=== PATIENT | male | born 1955 | race Caucasian/White ===

== ENCOUNTER 2021-11-22 23:43 | Inpatient (IN) | payer OTHER, SELFPAY ==
--- NOTE | ~2021-11-22 | US_ITS ---
EXAMINATION: US venous doppler [facility] DATE: 12/02/2021 09:58 INDICATION: Fever. Assess for DVT. TECHNIQUE: Grayscale images without and with compression and Doppler images of the bilateral upper ex tremity veins were obtained. COMPARISON: None. FINDINGS: The right internal jugular vein, subclavian vein, axillary vein, brachial vein, basilic vein, cephali c vein, radial vein, and ulnar vein are patent. A peripheral IV is present. Portion of the right ceph alic vein at the antecubital fossa. Noncompressible thrombosis in the left brachial, basilic and cephalic veins. There is a left upper ex tremity peripherally inserted central venous catheter (PICC) which can be seen in the left subclavian and basilic veins. The left internal jugular vein, subclavian vein, axillary vein, radial vein, and ulnar vein are patent. IMPRESSION: 1. Thrombosis in the left basilic, cephalic and brachial veins. No evident venous anastomosis in the right upper limb. Reviewed, dictated and finalized at location A. IMPRESSION: 1. Thrombosis in the left basilic, cephalic and brachial veins. No evident veno us anastomosis in the right upper limb.
--- NOTE | ~2021-11-22 | XR_ITS ---
EXAMINATION: XR chest 1V portable DATE: 11/30/2021 05:29 INDICATION: Respiratory failure TECHNIQUE: frontal view of the chest was obtained. COMPARISON: Chest radiograph dated 11/29/21 FINDINGS: Endotracheal tube tip 2.7 cm above the sotero. Nasogastric tube tip in the stomach. Left upper extrem ity peripherally inserted central venous catheter (PICC) tip at the mid superior vena cava. Lung volumes appear decreased which may be due to more lordotic positioning. Persistent hazy and stre aky opacities at the bilateral lung bases. Mild blunting at the costophrenic angles cyst with small b ilateral pleural effusions. No pneumothorax. Cardiomegaly. Small hiatal hernia. IMPRESSION: 1. Persistent opacities at the bilateral lung bases suggesting small bilateral layering pleural effus ions with associated basilar atelectasis or pneumonia. 2. Cardiomegaly. 3. Small hiatal hernia. Reviewed, dictated and finalized at location A. IMPRESSION: 1. Persistent opacities at the bilateral lung bases suggesting small bilateral layering pleural effusions with associated basilar atelectasis or pneumonia. 2. Cardiomegaly. 3. Small hiatal hernia.
--- NOTE | ~2021-11-22 | XR_ITS ---
XR chest 1V portable DATE: 12/03/2021 06:39 INDICATION: Respiratory failure TECHNIQUE: Portable AP chest on 12/03/2021 at 0531 hours COMPARISON: 12/02/2021 portable AP chest at 0524 hours FINDINGS: ET tube in satisfactory position 5 x 5 cm above sotero. NG tube in stomach. Left upper extr emity PIC catheter tip overlies superior vena cava. Heart size appears within normal range. Minimal bibasilar atelectasis is suggested. No pneumothorax. IMPRESSION: No significant change since 12/02/2021 Reviewed, dictated and finalized at location A.
--- NOTE | ~2021-11-22 | XR_ITS ---
XR chest 1V portable DATE: 12/05/2021 10:54 INDICATION: Hypoxia TECHNIQUE: Portable AP chest on 12/2021 at 1042 hours COMPARISON: 12/2021 portable AP chest at 0502 hours FINDINGS: Limited examination; lung bases are partially excluded. Bilateral hyperinflation consistent with COPD. Bibasilar patchy infiltrate and/atelectasis. No pneumothorax is evident. ET tube in satisfactory position. Nasogastric tube is identified. Left upper extremity PIC catheter extends in cephalad direction into the right brachiocephalic vein. Persistent bilateral hyperinflation and patchy bilateral lower lung infiltrates and/atelectasis IMPRESSION: Reviewed, dictated and finalized at location A. IMPRESSION:
--- NOTE | ~2021-11-22 | XR_ITS ---
EXAMINATION: XR abdomen NG/feed tube insert DATE: 11/23/2021 06:20 INDICATION: Orogastric tube placement. TECHNIQUE: An upright view of the abdomen was obtained. COMPARISON: Chest CT 11/23/2021 FINDINGS: The lower abdomen is excluded. The nasogastric tube tip is in the stomach. IMPRESSION: 1. Nasogastric tube tip in the stomach. Reviewed, dictated and finalized at location A.
--- NOTE | ~2021-11-22 | XR_ITS ---
EXAMINATION: XR chest 1V portable DATE: 11/23/2021 05:50 INDICATION: Respiratory failure. TECHNIQUE: A single frontal view of the chest was obtained. COMPARISON: Chest CT 11/23/2021 FINDINGS: There is a diffuse interstitial pattern, consistent with mild pulmonary edema. There are hans cencies in the upper lungs, consistent with emphysema. No pleural effusion or pneumothorax. Cardiomeg kesha is noted. The endotracheal tube tip is 4.4 cm above the sotero. IMPRESSION: 1. Mild pulmonary edema. 2. Emphysema. 3. Cardiomegaly. Reviewed, dictated and finalized at location A.
--- NOTE | ~2021-11-22 | CT_ITS ---
EXAMINATION: CT chest abdomen pelvis wo con DATE: 12/01/2021 11:11 INDICATION: Fever, leukocytosis. Shortness of breath. Respiratory failure. Urinary tract infection. TECHNIQUE: Computed tomography (CT) of the chest, abdomen, and pelvis was performed without intraveno us contrast. Automated exposure control and iterative reconstruction technique were employed. Exam do se: 1957.68 mGy-cm total exam DLP. COMPARISON: 12/01/2021 portable AP chest 11/23/2021 CT pulmonary scan FINDINGS: CHEST CT: Evaluation of the lungs is quite limited due to prominent respiratory motion. Left lower lobe pulmonary calcified granuloma. Bilateral lower lobe dependent atelectasis, right greater than left. Moderate right and mild left ple ural effusions. Mild cardiomegaly. Coronary artery calcification. No thoracic aortic aneurysm. No hilar or mediastina l mass lesion or lymphadenopathy. ET tube in satisfactory position. Nasogastric tube in stomach. ABDOMEN/PELVIS CT: There are numerous stones in the dependent aspect of the gallbladder. No gallbladder wall thickening or pericholecystic fluid or fat stranding. No bile duct or pancreatic duct dilatation. No hepatic, splenic or pancreatic space-occupying mass lesion is detected. Borderline splenomegaly. Normal morphology of the adrenal glands. Approximately 7.2 x 8 mm lower pole right renal calculus with attenuation of 1129 Hounsfield units. 1 to several very small nonobstructing left renal calculi are not excluded. There is bilateral perinephric stranding. No ureteral calculus or hydroureteronephrosis of either kid ana. There is a Gray catheter within the urinary bladder which is evacuated. Status post hysterectom y. There is atherosclerotic calcification but normal caliber of the abdominal aorta and iliac arteries. No intraperitoneal or retroperitoneal or pelvic mass lesion or adenopathy or ascites is noted. Small bilateral fat-containing inguinal hernias. There is a prominent amount of fecal material within the colon. No bowel obstruction, bowel wall thic kening, pneumatosis or intraperitoneal free air is detected. Medially directed cecum, consistent with retained cecal mesentery. Normal appendix. Small fat-containing umbilical hernia. Diffuse osteopenia. Prominent degenerative disc disease in the lower cervical spine. There is degener ative change and scoliosis of the thoracic spine. No suspicious osteolytic or osteoblastic lesions ar e noted, with the exception of prominent avascular necrosis of the right femoral head, with flattenin g and deformity of the head and secondary osteoarthritis at the right hip joint. 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 Reviewed, dictated and finalized at location B. IMPRESSION: Moderate right and mild left pleural effusions Bilateral lower lobe dependent atelectasis Mild cardiomegaly ET and NG tubes in satisfactory position Cholelithiasis Borderline splenomegaly 8 mm lower pole right renal calculus Bilateral perinephric stranding, nonspecific Retained cecal mesentery Normal appendix Status post hysterectomy Avascular necrosis of right femoral head with secondary right hip osteoarthriti s
--- NOTE | ~2021-11-22 | CT_ITS ---
EXAMINATION: CTA chest PE protocol DATE: 11/23/2021 01:39 INDICATION: Hypoxia. TECHNIQUE: Computed tomography angiography (CTA) of the chest was performed with 100 mL Omnipaque-350 intravenous contrast timed to evaluate the pulmonary arteries. Coronal maximum intensity projection 3D-reconstructions were created by the technologist. Automated exposure control and iterative reconst ruction technique were employed. The dose-length product was 1166.98 mGy-cm. COMPARISON: None. FINDINGS: There is mild emphysema. There is diffuse septal thickening in the lungs, consistent with m ild pulmonary edema. There are small pleural effusions, right worse than left. There is mild dependen t atelectasis bilaterally. Cardiomegaly is noted. There are coronary artery calcifications. No perica rdial effusion. The central pulmonary arteries are enlarged, consistent with pulmonary arterial hyper tension. There is no pulmonary embolus. The endotracheal tube tip is in the trachea. There is a small sliding hiatal hernia. The liver demonstrates a nodular surface contour, consistent with cirrhosis. There are gallstones in the gallbladder, which is normal in size. There is severe cervical and thorac ic spondylosis. There is mild chronic anterior wedging of multiple vertebral bodies. IMPRESSION: 1. No pulmonary embolus. Sensitivity is mildly decreased by motion artifact. 2. Mild pulmonary edema. 3. Small pleural effusions. 4. Mild emphysema. 5. Cardiomegaly. 6. Cirrhosis of the liver. Reviewed, dictated and finalized at location A.
--- NOTE | ~2021-11-22 | XR_ITS ---
XR chest 1V portable DATE: 12/05/2021 05:49 INDICATION: Hypoxia. Elevated d-dimer. TECHNIQUE: Portable AP chest on 12/2021 at 0502 hours COMPARISON: 12/21/2021 portable AP chest at 0510 hours FINDINGS: ET and NG tubes in satisfactory position. Left upper extremity PIC catheter tip overlies tong perior vena cava. Cardiomegaly. Persistent bilateral lower lung infiltrate and/atelectasis, left greater than right, relatively stabl e since 12/21/2021. IMPRESSION: Bibasilar infiltrate and/or atelectasis, left greater than right. No significant change s everardo 12/04/2021 Reviewed, dictated and finalized at location A. IMPRESSION: Bibasilar infiltrate and/or atelectasis, left greater than right. N o significant change since 12/04/2021
--- NOTE | ~2021-11-22 | XR_ITS ---
EXAMINATION: XR chest 1V portable DATE: 11/25/2021 03:52 INDICATION: Respiratory failure. TECHNIQUE: A single frontal view of the chest was obtained on 2 radiographs. COMPARISON: Chest single view 11/24/2021, chest CT 11/23/2021 FINDINGS: There are lucencies and interstitial opacities in the lungs. There are airspace opacities i n all right lung zones with a peripheral and lower lung predominance. There are airspace opacities at left lung base. There is a small right pleural effusion. No pneumothorax. Cardiomegaly is noted. The endotracheal tube tip is 4.6 cm above the sotero. The nasogastric tube tip is in the stomach. A left upper extremity peripherally inserted central venous catheter (PICC) is seen with tip in the superio r vena cava. IMPRESSION: 1. Stable diffuse lung disease, likely a combination of mild pulmonary edema, emphysema, and lower hans ng predominant atelectasis/scarring versus pneumonia. 2. Stable small right pleural effusion. 3. Cardiomegaly. Reviewed, dictated and finalized at location A. IMPRESSION: 1. Stable diffuse lung disease, likely a combination of mild pulmonary edema, e mphysema, and lower lung predominant atelectasis/scarring versus pneumonia. 2. Stable small right pleural effusion. 3. Cardiomegaly.
--- NOTE | ~2021-11-22 | CT_ITS ---
EXAMINATION: CT brain wo con DATE: 11/30/2021 21:31 INDICATION: fevers . TECHNIQUE: Computed tomography (CT) of the head was performed without intravenous contrast. The mA wa s adjusted according to patient size. Iterative reconstruction technique was employed. The dose-lengt h product was 681.00 mGy-cm. Significant motion artifact was not recognized at the time of the initia l scan. Technologist attempted to call down for rescan however no additional sedation is being given and there would apparently be considerable time delay prior to transport. As such the exam was read a s is. COMPARISON: None FINDINGS: Severe motion artifact completely obscures portions of the aerated spaces, base of the skull, most of the cerebellum, and portions of the venous sinuses. No acute intracranial hemorrhage or extra-axial fluid collection. No hydrocephalus, mass, or herniation. No acute ischemic infarct. Unremarkable dural venous sinus attenuation. No acute osseous abnormality. The aerated spaces are clear. Incompletely visualized nasogastric tube. Atherosclerotic intracranial calcifications. IMPRESSION: Severely limited examination as described above. Within those constraints, no acute intracranial proc ess detected. Reviewed, dictated and finalized at location K. IMPRESSION: Severely limited examination as described above. Within those constraints, no a cute intracranial process detected.
--- NOTE | ~2021-11-22 | XR_ITS ---
EXAMINATION: XR chest 1V portable INDICATION: Respiratory failure TECHNIQUE: Portable AP chest at 0841 hours COMPARISON: 11/26/2021 FINDINGS: The endotracheal tube ends approximately 3.1 cm above the sotero. The nasogastric tube is f ollowed as far as the stomach. Its tip is beyond the inferior margin of the radiograph. Cardiomegaly is noted. Diffuse interstitial and airspace opacities persist without significant change. There are s mall pleural effusions. There is no pneumothorax. IMPRESSION: 1. Stable diffuse lung disease, consistent with pneumonia and/or pulmonary edema. A two cardiomegaly. 3. Small pleural effusions. Reviewed, dictated and finalized at location A. IMPRESSION: 1. Stable diffuse lung disease, consistent with pneumonia and/or pulmonary tom a. A two cardiomegaly. 3. Small pleural effusions.
--- NOTE | ~2021-11-22 | XR_ITS ---
EXAMINATION: XR chest 1V portable DATE: 11/24/2021 05:58 INDICATION: Respiratory distress. TECHNIQUE: A single frontal view of the chest was obtained. COMPARISON: Chest single view 11/23/2021, chest CT 11/23/2021 FINDINGS: There is a diffuse interstitial pattern in the lungs, consistent with pulmonary edema. Ther e are small pleural effusions. No pneumothorax. Cardiomegaly is noted. The endotracheal tube tip is 1 .6 cm above the sotero. The nasogastric tube tip is in the stomach. A left upper extremity peripheral ly inserted central venous catheter (PICC) is seen with tip at the superior cavoatrial junction. IMPRESSION: 1. Mild pulmonary edema. 2. Stable small pleural effusions. 3. Cardiomegaly. Reviewed, dictated and finalized at location A.
--- NOTE | ~2021-11-22 | XR_ITS ---
EXAMINATION: XR chest 1V portable DATE: 12/01/2021 06:03 INDICATION: Respiratory failure TECHNIQUE: frontal view of the chest was obtained. COMPARISON: Chest radiograph dated 11/30/2021 FINDINGS: Endotracheal tube tip 5.2 cm above the sotero. Nasogastric tube extends below the left hemidiaphragm with distal tip collimated off the study. Left upper extremity peripherally inserted central venous catheter (PICC) tip at the superior vena cava. Interval improvement in pulmonary vascular congestion and previous increased interstitial pattern lik jamal representing pulmonary edema. Mild hazy opacity at the right lung base with blunting of the cardi ophrenic angles consistent with decreasing small right and minimal left pleural effusions. No pneumot horax. Cardiomegaly. Small hiatal hernia. IMPRESSION: 1. Improving, minimal basilar pulmonary edema and decreasing small right and tiny left pleural effusi ons. 2. Cardiomegaly. 3. Small hiatal hernia. Reviewed, dictated and finalized at location A. IMPRESSION: 1. Improving, minimal basilar pulmonary edema and decreasing small right and ti ny left pleural effusions. 2. Cardiomegaly. 3. Small hiatal hernia.
--- NOTE | ~2021-11-22 | XR_ITS ---
XR chest 1V portable DATE: 12/02/2021 05:53 INDICATION: Respiratory failure TECHNIQUE: Portable upright AP chest on 12/02/2021 at 0527 hours COMPARISON: 12/01/2021 CT chest abdomen pelvis 12/01/2021 portable AP chest FINDINGS: ET tube tip in satisfactory position 4.3 cm above sotero. NG tube is noted in stomach. Left upper extremity PIC catheter tip overlies the lower aspect of the inferior vena cava. Cardiomegaly. There are minimal basilar infiltrates and/atelectasis and small bilateral pleural effus ions bilateral hyperinflation.. No pneumothorax. IMPRESSION: Minimal bibasilar infiltrate and/atelectasis and small bilateral pleural effusions; littl e interval change since 12/01/2021 Bilateral hyperinflation Reviewed, dictated and finalized at location A. IMPRESSION: Minimal bibasilar infiltrate and/atelectasis and small bilateral pl eural effusions; little interval change since 12/01/2021 Bilateral hyperinflation
--- NOTE | ~2021-11-22 | XR_ITS ---
EXAMINATION: XR chest PICC line DATE: 11/23/2021 09:49 INDICATION: Central line placement. TECHNIQUE: A single frontal view of the chest was obtained. COMPARISON: Chest single view at 5:22 AM FINDINGS: There is a diffuse interstitial pattern, consistent with mild pulmonary edema. No pleural e ffusion or pneumothorax. Cardiomegaly is noted. The endotracheal tube tip is 4.3 cm above the sotero. A left upper extremity peripherally inserted central venous catheter (PICC) is seen with tip in the superior vena cava. The nasogastric tube tip is in the stomach. IMPRESSION: 1. PICC tip in superior vena cava. 2. Mild pulmonary edema. 3. Cardiomegaly. Reviewed, dictated and finalized at location A.
--- NOTE | ~2021-11-22 | XR_ITS ---
XR abdomen obstructive series DATE: 12/05/2021 08:42 INDICATION: Abdominal distention TECHNIQUE: Portable supine and upright AP views COMPARISON: 12/04/2021 obstructive series FINDINGS: Approximately 4-5 mm lower pole right renal calcified calculus. No evidence of bowel obstruction or intraperitoneal free air. Orogastric tube is in the body of the stomach. Flattening and deformity and some sclerosis of the right femoral head consistent with avascular necro sis. IMPRESSION: Orogastric tube in stomach No evidence of bowel obstruction Right nephrolithiasis Avascular necrosis of right femoral head Reviewed, dictated and finalized at Location A. Reviewed, dictated and finalized at location A.
--- NOTE | ~2021-11-22 | XR_ITS ---
EXAMINATION: XR chest 1V portable DATE: 11/24/2021 12:05 INDICATION: Respiratory failure TECHNIQUE: frontal view of the chest was obtained. COMPARISON: Chest radiograph dated 11/24/2021 at 5:09 AM FINDINGS: Endotracheal tube tip 1.9 cm above the sotero. Nasogastric tube extends below the left hemidiaphragm with distal tip collimated off the study. Left upper extremity peripherally inserted central venous catheter (PICC) tip at the caudal superior vena cava. Gradient of lower lung predominant hazy airspace opacities throughout the right lung and in the left lower lung zone likely representing bilateral posterior layering pleural effusions, small on the left and small to moderate on the right and with associated basilar atelectasis versus less likely pneumo adina. No pneumothorax. Mild cardiomegaly. IMPRESSION: 1. Increasing small left and [id number] right pleural effusions with associated basilar atelec tasis versus pneumonia. 2. Cardiomegaly. Reviewed, dictated and finalized at location B. IMPRESSION: 1. Increasing small left and agryp-[id number] right pleural effusions with ass ociated basilar atelectasis versus pneumonia. 2. Cardiomegaly.
--- NOTE | ~2021-11-22 | XR_ITS ---
EXAMINATION: XR chest 1V portable INDICATION: Respiratory failure TECHNIQUE: Portable AP chest at 0505 hours COMPARISON: 11/25/2021 FINDINGS: The endotracheal tube ends approximately 5.3 cm above the sotero. The nasogastric tube is f ollowed as far as the stomach. Its tip is beyond the inferior margin of the radiograph. There are dif fuse interstitial and airspace opacities of the lungs with slight improvement on the right. A small r ight pleural effusion is present and decreased in size. No pneumothorax is identified. Cardiomegaly i s noted. A left upper showed a PICC ends with its tip in the superior vena cava. IMPRESSION: 1. Diffuse lung disease with interval improvement, consistent with pneumonia and/or pulmonary edema. 2. Cardiomegaly. 3. Small right pleural effusion, decreased. Reviewed, dictated and finalized at location A. IMPRESSION: 1. Diffuse lung disease with interval improvement, consistent with pneumonia an d/or pulmonary edema. 2. Cardiomegaly. 3. Small right pleural effusion, decreased.
--- NOTE | ~2021-11-22 | XR_ITS ---
XR abdomen obstructive series DATE: 12/04/2021 09:26 INDICATION: Fever TECHNIQUE: Portable supine and upright AP views COMPARISON: 12/01/2021 CT chest abdomen pelvis FINDINGS: Orogastric tube in upper body of stomach. Nonspecific bowel gas pattern without apparent obstruction. No intraperitoneal free air is evident. Right renal calcified calculus. Bibasilar infiltrate or atelectasis, suspected small pleural effusions. Avascular necrosis of the right femoral head. IMPRESSION: Nonspecific abdomen Orogastric tube in stomach Reviewed, dictated and finalized at Location A. Reviewed, dictated and finalized at location A.
--- NOTE | ~2021-11-22 | XR_ITS ---
EXAMINATION: XR chest 1V portable DATE: 11/29/2021 06:07 INDICATION: Respiratory failure TECHNIQUE: frontal view of the chest was obtained. COMPARISON: Chest radiograph dated 11/28/2021 FINDINGS: Endotracheal tube tip 5.5 cm above the sotero. Nasogastric tube with proximal side-port near the leve l of the gastroesophageal junction with distal tip collimated off the study likely in the body of the stomach. Left upper extremity peripherally inserted central venous catheter (PICC) tip at the mid s uperior vena cava. Interval decrease in predominantly hazy opacities at the bilateral lung bases with some blunting at t he costophrenic and cardiophrenic angles suggesting small bilateral pleural effusions. Decreasing mil d reticular opacities at the periphery of the right mid to lower and left lower lung zones which coul d represent pulmonary edema, atelectasis or pneumonia. No pneumothorax. Mild cardiomegaly. Moderate t horacic spondylosis. IMPRESSION: 1. Decreasing peripheral reticular opacities at the right mid to lower and left lower lung zones whic h could represent improving mild pulmonary edema, atelectasis or less likely pneumonia. 2. Decreasing small bilateral pleural effusions. 3. Cardiomegaly. Reviewed, dictated and finalized at location A. IMPRESSION: 1. Decreasing peripheral reticular opacities at the right mid to lower and left lower lung zones which could represent improving mild pulmonary edema, atelect asis or less likely pneumonia. 2. Decreasing small bilateral pleural effusions. 3. Cardiomegaly.
--- NOTE | ~2021-11-22 | XR_ITS ---
XR chest ET placement DATE: 12/05/2021 11:16 INDICATION: Intubation TECHNIQUE: Portable upright AP view on 12/2021 at 1111 hours COMPARISON: 12/2021 portable AP chest FINDINGS: ET tube tip is at the proximal aspect of the right mainstem bronchus and needs to be withdr awn approximately 4 to 5 cm. Bilateral hyperinflation. Patchy infiltrate or atelectasis Primarily the lower lung zones. No pleural effusion or pneumothorax is evident. Left upper extremity PIC catheter tip in right brachiocephalic vein. IMPRESSION: ET tube tip at proximal right mainstem right; 4 to 5 cm proximal withdrawal is recommende d Reviewed, dictated and finalized at Location A. Reviewed, dictated and finalized at location A. IMPRESSION: ET tube tip at proximal right mainstem right; 4 to 5 cm proximal wi thdrawal is recommended
--- NOTE | ~2021-11-22 | XR_ITS ---
XR chest 1V portable DATE: 12/04/2021 05:49 INDICATION: Respiratory failure. Mechanical ventilation. TECHNIQUE: Portable AP projection on 12/04/2021 at 0510 hours COMPARISON: 12/03/2021 portable AP chest at 0531 hours FINDINGS: ET tube approximately 3.7 cm above sotero in satisfactory position. NG tube in stomach. Lef t upper extremity PIC catheter tip overlies superior vena cava. Persistent patchy bibasilar infiltrate and/or atelectasis, mildly increased since 12/04/2021. There is minimal if any pleural effusion. No pneumothorax. IMPRESSION: Persistent patchy bibasilar infiltrate and/or atelectasis, mildly increased since 2 Reviewed, dictated and finalized at location A. IMPRESSION: Persistent patchy bibasilar infiltrate and/or atelectasis, mildly i ncreased since 12/04/2021
--- NOTE | ~2021-11-22 | XR_ITS ---
EXAMINATION: XR chest ET placement DATE: 11/23/2021 00:17 INDICATION: Intubation. TECHNIQUE: A single frontal view of the chest was obtained. COMPARISON: Chest CT 11/23/2021 FINDINGS: There are lucencies in the lungs, consistent with emphysema. There is a diffuse interstitia l pattern, consistent with mild pulmonary edema. There are small pleural effusions. Cardiomegaly is n oted. The endotracheal tube tip is 5.4 cm above the sotero. IMPRESSION: 1. Mild pulmonary edema. 2. Emphysema. 3. Small pleural effusions. 4. Cardiomegaly. Reviewed, dictated and finalized at location A.
--- NOTE | ~2021-11-22 | XR_ITS ---
XR chest 1V portable DATE: 12/05/2021 12:02 INDICATION: ET tube repositioning TECHNIQUE: Portable AP chest on 12/05/2021 at 1157 hours COMPARISON: 12/2021 portable AP chest at 1111 hours FINDINGS: ET tube repositioned 3 cm above sotero, in satisfactory position. Persistent bilateral lower lung infiltrate and/atelectasis, left greater than right. NG tube in stomach. Left upper stomach the catheter tip overlying right brachiocephalic vein. IMPRESSION: ET tube repositioned into satisfactory location 3 cm above sotero NG tube in stomach Left upper extremity PIC catheter tip overlies right brachiocephalic vein Bilateral lower lung infiltrate and/atelectasis, left greater than right Reviewed, dictated and finalized at location A.
[2021-11-22 23:40] VITALS: BP 140/78; PULSE 110; RESP 23; TEMP 36.3; O2SAT 100
--- NOTE | 2021-11-22 23:49 | ED.GENADULT ---
HPI - General Adult General Chief complaint: Shortness of Breath/Dyspnea Stated complaint: SOB, intubated Time Seen by Provider: 11/22/21 23:44 History of Present Illness HPI narrative: 66-year-old male presented to the emergency department in respiratory distress. EMS was called to the residence for report of worsening shortness of breath. Patient's pulse ox was 60% on room air. When placed on oxygen patient began to become more somnolent and ultimately needed to be intubated by EMS Patient arrived to the emergency department intubated and saturating well. 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 Attempted to contact and she is currently hospitalized at another hospital for a knee replacement and reportedly has some developmental delay. Patient's only son also has developmental delay. Related Data Home Medications Medication Instructions Recorded Confirmed Unable to Obtain Home Medications 11/23/21 11/23/21 Allergies Allergy/AdvReac Type Severity Reaction Status Date / Time Unable to Assess Allergy Verified 11/23/21 04:31 Review of Systems Review of Systems: ROS unobtainable: Yes unobtainable due to medical condition [facility] Past Medical History Medical History (Updated 11/23/21 @ 04:17 by Sayra Rockwell APRN) Diabetes mellitus Surgical History Surgical History (Updated 11/23/21 @ 04:15 by Sayra Rockwell APRN) Status post bilateral above knee amputation Social History Social History (System 07/12/21 @ 09:18 by Frederick Figueroa) Last use: Unable to assess: patient intubated Spiritual care concerns: No Exam Narrative: APPEARANCE: Ill-appearing and intubated HEAD: normocephalic, atraumatic. EYES: Pupils pinpoint on arrival NOSE: Normal no drainage EARS:TMS clear with good light reflex. THROAT: Patient intubated NECK: Supple. No adenopathy, no masses. RESPIRATORY: Ventilated breath sounds CARDIOVASCULAR: Regular rate and rhythm without murmurs rubs or gallops. ABDOMINAL: Soft, nontender, nondistended, normal bowel sounds MUSCULOSKELETAL: Moves upper extremities, bilateral qtfbp-xry-waxi amputations. NEURO: Does move limbs spontaneously SKIN: Warm, dry. Normal Color Course Course Emergency Course: Patient was intubated in the field. Chest x-ray showed adequate tube placement. UA was concerning for urinary tract infection. Patient was started on Rocephin. Patient does have an elevated troponin. Patient also has an elevated BNP. Patient was started on Lasix in response to the BMP. Patient's repeat troponin was further elevated. Patient was also started on Lovenox and cardiology was consulted for possible NSTEMI. EKG does show it is without evidence of acute STEMI. CTA showed no evidence of pulmonary embolism but did show some interstitial edema and pleural effusions Case was discussed with the last sorter and case was also discussed with the hospitalist Vital Signs Vital signs: Vital Signs Temperature 97.4 F L 11/22/21 23:40 Pulse Rate 110 H 11/22/21 23:40 Respiratory Rate 23 H 11/22/21 23:40 Blood Pressure 140/78 11/22/21 23:40 Pulse Oximetry 100 11/22/21 23:40 Oxygen Delivery Mechanical Ventilation 11/22/21 23:40 Temperature 97.9 F 11/23/21 05:15 Pulse Rate 97 11/23/21 06:04 Respiratory Rate 27 H 11/23/21 06:04 Blood Pressure 131/81 11/23/21 06:00 Pulse Oximetry 98 11/23/21 06:00 Oxygen Delivery Mechanical Ventilation 11/23/21 05:09 Fraction of Inspired Oxygen 40 11/23/21 05:41 Medical Decision Making Vital Signs Vital Signs: Vital Signs Temperature 97.4 F L 11/22/21 23:40 Pulse Rate 110 H 11/22/21 23:40 Respiratory Rate 23 H 11/22/21 23:40 Blood Pressure 140/78 11/22/21 23:40 Pulse Oximetry 100 11/22/21 23:40 Oxygen Delivery Mechanical Ventilation 11/22/21 23:40 Temperature 97.9 F 11/23/21
[2021-11-22 23:56] VITALS: PULSE 117; O2SAT 98
[2021-11-22 23:58] LABS: Alveolar/Arterial O2 Gradient 197.2 mmHg; Base Excess ABG -18.7 mEq/l (+/-2.0); Fractional Inspired Oxygen 50 %; HCO3 ABG 9.8 mEq/l (22.0-26.0); Oxygen Content ABG 13.1 %vol (16.0-22.0); Oxyhemoglobin 95.3 % THb (90.0-100.0); PCO2 ABG 33.1 mmHg (35.0-45.0); PO2 ABG 122.1 mmHg (80.0-100.0); PO2 FiO2 Ratio Arterial Blood 2.44 %; Total Hemoglobin 9.6 g/dL (12.0-18.0)
[2021-11-23] VITALS (48 sets, daily range): BP systolic 83–138; BP diastolic 65–89; PULSE 81–115; RESP 16–30; TEMP 36.2–37; O2SAT 93–100; BMI 11.7; BMI 31.7
--- NOTE | 2021-11-23 | ECHO_ITS ---
Patient Info Name: Devang Garcia Age: 66 years : 1955 Gender: Male Ht: 68 in Wt: 208 lbs BSA: 2.16 m2 HR: 89 bpm BP: 108 / 73 mmHg Heart Rhythm: Sinus Rhythm Technical Quality: Poor Exam Date: 11/23/2021 11:54 AM Exam Location: [facility] Pulmonary Exam Room: ICU4 Patient Status: Inpatient Admit Date: 11/23/2021 Staff Ordering Physician: Tawanda Snyder MD Copy Director: Umm Benitez RDCS Attending Provider: Brittany Webb DO Referring Physician: Claudio SNIDER; Exam Type: CA echo dop color flow w con Study Info Indications - NSTEMI Complete two-dimensional, color flow and Doppler transthoracic echocardiogram is performed with contrast to opacify the left ventricle and to improve the deliniation of the left ventricle endocardial borders. Contrast/Agitated Saline Contrast/Ag. Saline: Definity Amount: 2.00 ml Administered By: Umm Benitez [facility] Existing IV Access: Yes IV Access Condition: patent with no signs of infiltration Summary 1. Left ventricular systolic function is moderately reduced, estimated at 35-40% with dyskinetic apex. 2. Left ventricular chamber dimension is mildly enlarged. 3. There is mildly increased left ventricular wall thickness. 4. There is no thrombus visualized in the left ventricle. 5. The left ventricular diastolic function is abnormal. 6. There is mild tricuspid valve regurgitation. 7. Mild pulmonary hypertension, estimated pulmonary arterial systolic pressure is 38 mmHg. 8. Technically difficult study with limited views with administration of definity contrast. Left Ventricle Left ventricular systolic function is moderately reduced, estimated at 35-40% with dyskinetic apex. Left ventricular chamber dimension is mildly enlarged. There is mildly increased left ventricular wall thickness. The left ventricular diastolic function is abnormal. There is no thrombus visualized in the left ventricle. Right Ventricle Right ventricular chamber dimension is normal. Right ventricular systolic function is normal. Left Atria Left atrial chamber dimension is moderately enlarged. Right Atria Right atrial chamber dimension is mildly enlarged. Aortic Valve The aortic valve is not well visualized. There is no aortic valve stenosis. There is no aortic valve regurgitation. Pulmonic Valve The pulmonic valve is not well visualized. Mitral Valve The mitral valve has normal leaflets. There is trace mitral valve regurgitation. The mitral valve annulus is mildly calcified. Tricuspid Valve The tricuspid valve leaflets are normal. There is mild tricuspid valve regurgitation. Mild pulmonary hypertension, estimated pulmonary arterial systolic pressure is 38 mmHg. Pericardium/Pleural The pericardium appears epicardial fat pad. There is trivial pericardial effusion. Inferior Vena Cava Normal inferior vena cava with >50% collapse upon inspiration consistent with normal right atrial pressure, 5 mmHg. Aorta The aortic root size at the sinus of Valsalva is normal. There is mild aortic atherosclerosis. Left Ventricular Outflow Tract Name Value Normal LVOT 2D LVOT Diameter 2
--- NOTE | 2021-11-23 | ECG_ITS ---
Measurements Intervals [place] Rate: 113 P: [place]: 214 QRS: -59 QRSD: 116 T: 111 QT: 349 QTc: 479 Interpretive Statements SINUS TACHYCARDIA WITH FIRST-DEGREE AV BLOCK LEFT ANTERIOR FASCICULAR BLOCK ANTEROSEPTAL MYOCARDIAL INFARCTION, PROBABLY OLD ST DEVIATION AND MODERATE T-WAVE ABNORMALITY, CONSIDER LATERAL ISCHEMIA ABNORMAL ECG NO PREVIOUS ECG AVAILABLE FOR COMPARISON Electronically Signed On 11-23-2021 14:44:37 CDT by Jensen Galvez M.D.
[2021-11-23 00:01] LABS: Device VENTILATOR; Modified Allen's Test Pass; Site Drawn RIGHT RADIAL; pH ABG 7.091 (7.350-7.450)
[2021-11-23 00:02] LABS: Arterial Blood Gas PEEP 5 cmH2O; Arterial Blood Gas Tidal Volume 550 ml; Arterial Blood Gas Vent Mode CMV; Arterial Blood Gas Ventilator rate 16 /MIN
[2021-11-23] MEDS: PROPOFOL IV EMULSION 100 ML 3.12 MG IV CONT (00:02)
[2021-11-23 00:20] LABS: Hematocrit 31.4 % (42.0-52.0); Hemoglobin 8.4 g/dL (14.0-18.0); Mean Corpuscular HGB Conc 26.8 g/dl (32-36); Mean Corpuscular Hemoglobin 20.7 pg (26-34); Mean Corpuscular Volume 77.5 fl (80-100); Mean Platelet Volume 9.2 fl (7.4-10.4); Platelet Count Result 732 k/mm3 (150-375); Red Blood Count 4.05 M/mm3 (4.6-6.20); White Blood Count 24.2 K/mm3 (4.5-10.0)
[2021-11-23 00:39] LABS: Albumin Level 3.6 g/dL (3.5-5.1); Alkaline Phosphatase 108 U/L (38-126); Anion Gap 17 mmol/L (8-16); Aspartate Amino Transferase 36 U/L (17-59); Bilirubin,Total 0.5 mg/dL (0.2-1.3); Blood Urea Nitrogen 14 mg/dL (9-20); Calcium 7.9 mg/dL (8.4-10.2); Carbon Dioxide 12 mmol/L (22-30); Chloride 112 mmol/L (98-107); Estimated CRCL calculation 60 ml/min; Estimated Glomerular Filt Rate 56; Glucose 332 mg/dL (65-110); Sodium 141 mmol/L (137-145)
[2021-11-23 00:43] LABS: D Dimer 1.36 ug/mL (<0.48)
--- NOTE | 2021-11-23 00:46 | PC.NURSE ---
verbal order for soft restraints per EDP aristeo at this time. pt trying to pull tube
[2021-11-23 00:57] LABS: Band Neutrophils Percent 2 % (0-6); Basophils Absolute Manual 0.48 K/mm3 (0.0-0.1); Basophils Percent Manual 2 % (0-1); Eosinophils Absolute Manual 0.72 K/mm3 (0.02-0.5); Eosinophils Percent Manual 3 % (0-4); Lymphocytes Absolute Manual 4.84 K/mm3 (1.1-4.5); Metamyelocytes Percent 3 %; Monocytes Absolute Manual 0.72 K/mm3 (0.1-0.90); Monocytes Percent Manual 3 % (3-9); Neutrophils Absolute Manual 16.21 K/mm3 (1.3-6.7); Neutrophils Percent Manual 65 % (46-73); Plasma Cells 2; Platelet Estimate Increased (Adequate); Total Cells Counted 100
[2021-11-23 00:58] LABS: Anisocytosis 1+ (NORMAL); Atypical Lymphocytes Present; Large Platelets Present; Platelet Clumps Present; Smudge Cells PRESENT
[2021-11-23 00:59] LABS: Nucleated Red Blood Cells 4 %
[2021-11-23 01:13] LABS: Troponin I 0.138 ng/mL (0.000-0.034)
[2021-11-23 01:17] LABS: Appearance Urine Clear (Clear); Bilirubin Urine 1+ (Negative); Blood Urine 3+ (Negative); Color Urine Yellow (Yellow); Glucose Urine UA Negative (Negative); Ketones Urine Negative (Negative); Leukocyte Esterase Ur 1+ LEU/UL (Negative); Nitrate Urine Negative (Negative); Protein Urine 3+ mg/dL (Negative); pH Urine 7.5 (5.0-9.0)
[2021-11-23 01:23] LABS: Bacteria Urine 4+ /hpf; RBC Urine >75 /hpf (0-2); Squamous Epithelial Cell Urine Rare /hpf (Few); WBC Urine >75 /hpf
[2021-11-23 01:25] LABS: Add Urine Microscopic? YES
[2021-11-23 01:30] LABS: Alanine Aminotransferase 20 U/L (6-50)
--- NOTE | 2021-11-23 02:28 | PC.NURSE ---
Talked to Beata in lab at 02:28 to add on BNP
[2021-11-23 02:50] LABS: NT Pro B Type Natriuretic Pept 5860 pg/mL (5-100)
--- NOTE | 2021-11-23 03:06 | ECG_ITS ---
Measurements Intervals [place] Rate: 107 P: 46 [place]: 158 QRS: -55 QRSD: 110 T: 111 QT: 352 QTc: 472 Interpretive Statements SINUS TACHYCARDIA POSSIBLE LEFT ATRIAL ENLARGEMENT LOW QRS VOLTAGE IN PRECORDIAL LEADS LEFT ANTERIOR FASCICULAR BLOCK ANTEROSEPTAL MYOCARDIAL INFARCTION , OF INDETERMINATE AGE ST DEVIATION AND MODERATE T-WAVE ABNORMALITY, CONSIDER LATERAL ISCHEMIA ABNORMAL ECG COMPARED TO ECG 11/23/2021 00:05:26 NO SIGNIFICANT CHANGES Electronically Signed On 11-23-2021 14:46:44 CDT by Jensen Galvez M.D.
[2021-11-23] MEDS: FUROSEMIDE INJ 40 MG/4 ML VIAL IV PUSH ×2 (03:16→16:20)
[2021-11-23 03:17] LABS: SARS-CoV-2 RNA PCR Negative
--- NOTE | 2021-11-23 03:47 | PC.NURSE ---
per MANAGER OPERATIONAL crystal 10 mg propofol IV push given at this time.
[2021-11-23 04:01] LABS: Alveolar/Arterial O2 Gradient 169.7 mmHg; Base Excess ABG -7.1 mEq/l (+/-2.0); Fractional Inspired Oxygen 50 %; HCO3 ABG 18.6 mEq/l (22.0-26.0); Modified Allen's Test Unable to perform; Oxygen Content ABG 13.3 %vol (16.0-22.0); Oxygen Saturation ABG 98.6 % (95.0-100.0); Oxyhemoglobin 97.2 % THb (90.0-100.0); PCO2 ABG 38.2 mmHg (35.0-45.0); PO2 ABG 143.8 mmHg (80.0-100.0); PO2 FiO2 Ratio Arterial Blood 2.88 %; Site Drawn RIGHT RADIAL; Total Hemoglobin 9.5 g/dL (12.0-18.0); pH ABG 7.305 (7.350-7.450)
[2021-11-23 04:02] LABS: Arterial Blood Gas PEEP 5 cmH2O; Arterial Blood Gas Tidal Volume 550 ml; Arterial Blood Gas Vent Mode CMV; Arterial Blood Gas Ventilator rate 16 /MIN; Device VENTILATOR
--- NOTE | 2021-11-23 04:11 | PM.IMHP ---
H&P: HPI History of Present Illness Date/Time: Patient requires inpatient monitoring with expected length of stay to exceed 2 midnights for management of care. 11/23/21 04:11 Chief Complaint: Shortness of breath Narrative: Mr. Grider is a 66-year-old gentleman who presented to the emergency room via EMS with complaints of shortness of breath. Patient was picked up at home per EMS with oxygen saturations at 60% on room air. Patient was placed on oxygen and became very somnolent and was intubated while EN route to the hospital. Upon arrival to the emergency room patient was intubated and saturating well. This point time I am unable to get any type of history from the patient. There is no past medical history noted in this system. Per emergency room records patient did states that he is a bilateral [id number] amputee secondary to gangrene although he told EMS he has no past medical history. Review of Systems Review of Systems: I am unable to obtain review of systems secondary to patient being sedated and intubated. [facility] Past Medical History Medical History (Updated 11/23/21 @ 04:17 by Sayra Rockwell APRN) Diabetes mellitus Surgical History Surgical History (Updated 11/23/21 @ 04:15 by Sayra Rockwell APRN) Status post bilateral above knee amputation Meds Vital Signs Vital Signs - 24 hr 11/22/21 23:40 11/22/21 23:56 11/23/21 00:02 Temperature 36.3 C L Pulse Rate 110 H 117 H 114 H Respiratory Rate 23 H 25 H Blood Pressure 140/78 Pulse Oximetry 100 98 Oxygen Delivery Mechanical Ventilation Mechanical Ventilation Fraction of Inspired Oxygen 50 11/23/21 01:41 11/23/21 00:07 11/23/21 03:16 Temperature Pulse Rate 111 H 115 H 104 H Respiratory Rate 26 H Blood Pressure Pulse Oximetry 93 Oxygen Delivery Mechanical Ventilation Fraction of Inspired Oxygen 50 11/23/21 03:48 11/23/21 04:03 Temperature Pulse Rate 106 H 111 H Respiratory Rate 26 H Blood Pressure 138/89 Pulse Oximetry 100 93 Oxygen Delivery Mechanical Ventilation Fraction of Inspired Oxygen 50 Exam Narrative: Constitutional: Patient is sedated intubated unable to give me history. HEENT: Moist mucous membranes. No scleral icterus. No lymphadenopathy. Neck: No carotid bruits noted no JVD noted Lungs: Lung sounds are coarse to auscultation bilaterally. Cardiovascular: Apical pulse is regular rate and rhythm. S1-S2 noted, no S3 or S4 noted. No gallops, murmurs, or rubs noted. Abdomen: Soft, round, and nontender. No palpable masses. Extremities: Patient is a bilateral [id number] amputee Skin: Patient has multiple scabbed wounds to bilateral stumps Neurological: Patient is sedated intubated H&P: Results Labs Labs: Short CBC 11/23/21 Range/Units 00:03 WBC 24.2 H (4.5-10.0) K/mm3 Hgb 8.4 L (14.0-18.0) g/dL Hct 31.4 L (42.0-52.0) % Plt Count 732 H (150-375) k/mm3 BMP 11/23/21 00:03 Sodium 141 Potassium 4.0 Chloride 112 H Carbon Dioxide 12 L BUN 14 Creatinine 1.30 Glucose 332 H Calcium 7.9 L Cardiac Enzymes 11/23/21 11/23/21 Range/Units 00:03 03:11 Troponin I 0.138 H* 1.580 H* D (0.000-0.034) ng/mL Liver Function 11/23/21 Range/Units 00:03 Total Bilirubin 0.5 (0.2-1.3) mg/dL AST 36 (17-59) U/L ALT 20 (6-50) U/L Alkaline Phosphatase 108 (38-126) U/L Albumin 3.6 (3.5-5.1) g/dL Urine 11/23/21 Range/Units 00:29 Urine Color Yellow (Yellow) Urine Appearance Clear (Clear) Urine pH 7.5 (5.0-9.0) Ur Specific Thayer 1.020 (1.001-1.035) Urine Protein 3+ H (Negative) mg/dL Urine Glucose (UA) Negative (Negative) mg/dL Assessment and Plan Assessment and plan (1) Acute respiratory distress: Code(s): R06.03 - Acute respiratory distress Status: Acute Assessment and Plan: Patient is sedated intubated and ABGs are improving. Will continue with
--- NOTE | 2021-11-23 04:45 | ADMGEN ---
This patient, Devang Grider, was admitted to Intensive Care Unit-4. Patient/family oriented to hospital policies and general routines including ID bracelet, bed and alarms, visiting hours, pain management, procedures, bathroom and other care routines, personal items, smoking policy, room service/diet, and visiting hours. Information on how to activate the Rapid Response Team has been discussed. Patient/Family are encouraged to report perceived risks to care and to ask questions if they do not understand what they are told or what they should do.
[2021-11-23] MEDS: ENOXAPARIN 100 MG/ML SYRINGE SUB-Q (05:50)
[2021-11-23 06:02] LABS: INR 1.3; Prothrombin Time 15.3 Seconds (11.1-14.7)
[2021-11-23 06:03] LABS: Partial Thromboplastin Time 34.8 SECONDS (22.3-36.8)
[2021-11-23 06:04] LABS: Lactic Acid Reflex 1.5 mmol/L (0.7-2.0); Magnesium 2.1 mg/dL (1.6-2.3); Phosphorus 4.5 mg/dL (2.5-4.5)
--- NOTE | 2021-11-23 06:29 | ECG_ITS ---
Measurements Intervals [place] Rate: 93 P: 37 [place]: 162 QRS: -51 QRSD: 110 T: 74 QT: 369 QTc: 460 Interpretive Statements SINUS RHYTHM POSSIBLE LEFT ATRIAL ENLARGEMENT LEFT ANTERIOR FASCICULAR BLOCK SEPTAL MYOCARDIAL INFARCTION, OF INDETERMINATE AGE ABNORMAL ECG COMPARED TO ECG 11/23/2021 03:13:26 HEART RATE HAS DECREASED Electronically Signed On 11-23-2021 14:47:15 CDT by Jensen Galvez M.D.
[2021-11-23 06:42] LABS: Glucose Point of Care 144 mg/dl (65-105)
[2021-11-23 06:43] LABS: Basophils Absolute Auto 0.1 K/mm3 (0.0-0.1); Basophils Percent Auto 0.4 % (0.2-1.2); Eosinophils Absolute Auto 0.1 K/mm3 (0-0.3); Eosinophils Percent Auto 0.2 % (0-4.4); Hematocrit 29.8 % (42.0-52.0); Hemoglobin 8.5 g/dL (14.0-18.0); Immature Granulocyte Absolute 0.35 K/mm3 (0.00-0.031); Immature Granulocyte Percent A 1.5 % (0-0.5); Lymphocytes Absolute Auto 1.31 K/mm3 (0.9-3.2); Lymphocytes Percent Auto 5.8 % (18.3-44.2); Mean Corpuscular HGB Conc 28.5 g/dl (32-36); Mean Corpuscular Volume 73.6 fl (80-100); Mean Platelet Volume 9.4 fl (7.4-10.4); Monocytes Absolute Auto 1.7 K/mm3 (0.1-0.6); Monocytes Percent Auto 7.6 % (2.6-8.5); Neutrophils Absolute Auto 19.1 K/mm3 (1.3-6.7); Neutrophils Percent Auto 84.5 % (45.5-73.1); Nucleated Red Blood Cells Absolute Auto 0.1 K/mm3 (0.0-0.012); Nucleated Red Blood Cells Perc 0.3 % (0.0-0.2); Platelet Count Result 549 k/mm3 (150-375); Red Blood Count 4.05 M/mm3 (4.6-6.20); Red Cell Distribution Width 20.2 % (11.5-14.5); White Blood Count 22.6 K/mm3 (4.5-10.0)
[2021-11-23 06:49] LABS: Anion Gap 9 mmol/L (8-16); Blood Urea Nitrogen 16 mg/dL (9-20); Calcium 8.1 mg/dL (8.4-10.2); Carbon Dioxide 20 mmol/L (22-30); Chloride 113 mmol/L (98-107); Estimated CRCL calculation 25 ml/min; Estimated Glomerular Filt Rate 56; Glucose 121 mg/dL (65-110); Potassium 4.2 mmol/L (3.4-5.0); Sodium 142 mmol/L (137-145)
[2021-11-23] MEDS: PROPOFOL IV EMULSION 100 ML 24.96 MG IV CONT (07:30)
--- NOTE | 2021-11-23 08:40 | PM.CNCAR ---
Assessment and Plan Assessment and plan (1) CHF (congestive heart failure): Qualifiers: Heart failure chronicity: unspecified Heart failure type: unspecified Qualified Code(s): I50.9 - Heart failure, unspecified Code(s): I50.9 - Heart failure, unspecified Status: Acute (2) Non-STEMI (non-ST elevated myocardial infarction): Code(s): I21.4 - Non-ST elevation (NSTEMI) myocardial infarction Status: Acute Plan this is a 66-year-old patient who obviously must have an extensive medical history elsewhere who presents to our hospital with shortness of breath respiratory extremis some evidence of pulmonary edema on x-ray and was intubated emergently in the field. His troponin level has significantly risen consistent with non ST elevation KS. This certainly could be an acute coronary event or could also simply be a type 2 infarction because of respiratory extremis hypoxemia and severe acidemia. His ST segment changes have improved following a intubation and ventilation. At this time I would recommend treating his congestive heart failure medically he will receive some additional IV furosemide we will place him on aspirin and later after his Lovenox we will start him on IV heparin infusion. Echocardiogram will be ordered to assess his cardiac substrate. It would be very important in this situation to attempt a simple some medical records on this patient as we will need to be making decisions as to whether angiography canned/should be attempted here at [facility] or any or anywhere else. I do not get the sense today that it would be in his best interest to bring him for angiography without any of this information especially with the likelihood that arterial vascular access would be quite challenging based on his examination at this time. Tawanda Snyder MD [facility] History of Present Illness History of Present Illness Consult date/time: 11/23/21 08:40 Consult reason: congestive heart failure Reason For Visit: CHF,UTI,resp distress,NSTEMI Narrative: This is a 66-year-old man I am seeing at the request of the decating machine operator / hospitalist staff because of congestive heart failure and evidence of non ST elevation KS. The patient is unknown to any of the physicians here at [facility]. Apparently he was brought here last evening /in the middle of the night by ambulance from his home where he was complaining of severe shortness of breath. According to the chart he was found to be in respiratory extremis and was intubated in the field. Oxygen saturations were apparently very low at that time. Upon arrival in the emergency room of course he was intubated sedated incapable of providing any history. The EMS notes did not report any significant chest pain however once again no direct history is available. His electrocardiogram in the emergency room showed sinus rhythm with a leftward axis and precordial ST segment depression. At that time he was also acidemic with a pH of 7.0. The ST segment depression has improved on subsequent ECG. The patient's chest x-ray shows evidence of congestive heart failure with mild pulmonary edema and enlarged cardiac silhouette. The patient does not have any prior medical records here that we are able to review. It seems obvious he has an extensive history of vascular disease as he is a bilateral cvcek-axi-vdyq amputee. In this setting he is being seen in ICU room 4. Intubated sedated with propofol. Troponin level has risen to a high of 8. Renal function is relatively normal he is anemic with a hemoglobin of 8 [place] [id number]. Review of Systems Review of Systems: ROS unobtainable: Yes unobtainable due to endotracheal tube PMFSH Past Medical History Medical History (Updated 11/23/21 @ 04:17 by Sayra Rockwell APRN) Diabetes mellitus Surgical History Surgical History (Updated 11/23/21 @ 04:15 by Sayra Rockwell APRN) Status post bilateral above knee amputa
[2021-11-23 09:17] LABS: Basophils Absolute Auto 0.1 K/mm3 (0.0-0.1); Basophils Percent Auto 0.3 % (0.2-1.2); Eosinophils Absolute Auto 0.1 K/mm3 (0-0.3); Eosinophils Percent Auto 0.3 % (0-4.4); Hematocrit 28.6 % (42.0-52.0); Hemoglobin 7.9 g/dL (14.0-18.0); Immature Granulocyte Absolute 0.26 K/mm3 (0.00-0.031); Immature Granulocyte Percent A 1.4 % (0-0.5); Lymphocytes Absolute Auto 1.34 K/mm3 (0.9-3.2); Lymphocytes Percent Auto 7.2 % (18.3-44.2); Mean Corpuscular HGB Conc 27.6 g/dl (32-36); Mean Corpuscular Hemoglobin 20.6 pg (26-34); Mean Corpuscular Volume 74.7 fl (80-100); Mean Platelet Volume 8.9 fl (7.4-10.4); Monocytes Absolute Auto 1.6 K/mm3 (0.1-0.6); Monocytes Percent Auto 8.4 % (2.6-8.5); Neutrophils Absolute Auto 15.3 K/mm3 (1.3-6.7); Neutrophils Percent Auto 82.4 % (45.5-73.1); Nucleated Red Blood Cells Absolute Auto 0.1 K/mm3 (0.0-0.012); Nucleated Red Blood Cells Perc 0.3 % (0.0-0.2); Platelet Count Result 435 k/mm3 (150-375); Red Blood Count 3.83 M/mm3 (4.6-6.20); White Blood Count 18.6 K/mm3 (4.5-10.0)
[2021-11-23 09:27] LABS: INR 1.3; Prothrombin Time 15.8 Seconds (11.1-14.7)
[2021-11-23 09:28] LABS: Partial Thromboplastin Time 46.7 SECONDS (22.3-36.8)
[2021-11-23 09:49] LABS: Anisocytosis 1+ (NORMAL); Hypochromasia 1+ (NORMAL); Platelet Clumps Present; Platelet Estimate Increased (Adequate)
[2021-11-23] MEDS: ASPIRIN 325 MG TABLET FEED TUBE (10:19)
[2021-11-23] MEDS: MINERAL OIL/WHITE PETROLATUM OINTMENT 1 APPLIC EACH EYE ×2 (10:19→21:46)
[2021-11-23] MEDS: PANTOPRAZOLE SODIUM IV 40 MG VIAL IV PUSH (10:19)
[2021-11-23] MEDS: PROPOFOL IV EMULSION 100 ML 25.54 MG IV CONT ×3 (10:24→22:02)
[2021-11-23] MEDS: FENTANYL 2,500MCG/NS250ML(*CRX 2,500 MCG/250 ML BAG IV CONT (11:55)
--- NOTE | 2021-11-23 12:01 | WPDCNINT ---
Assessment and Plan Assessment and plan (1) Acute respiratory failure: Code(s): J96.00 - Acute respiratory failure, unspecified whether with hypoxia or hypercapnia Status: Acute Assessment and Plan: Acute Respiratory failure secondary to pulmonary edema and congestive heart failure Patient was intubated in the field CT scan of the chest showed: 1. No pulmonary embolus. Sensitivity is mildly decreased by motion artifact. 2. Mild pulmonary edema. 3. Small pleural effusions. 4. Mild emphysema. 5. Cardiomegaly. 6. Cirrhosis of the liver. Continue full mechanical ventilation support to prevent hypoxemia/hypercarbia and end organ damage. ABG reviewed Lasix IV given and will repeat later today Low tidal volume ventilation strategy to prevent volutrauma Bronchodilators (2) Non-STEMI (non-ST elevated myocardial infarction): Code(s): I21.4 - Non-ST elevation (NSTEMI) myocardial infarction Status: Acute Assessment and Plan: Patient likely has vascular disease as evidenced by history of diabetes and bilateral AKA Elevated troponin but EKG did not show any ST elevation but was abnormal Discussed with Cardiology Switch from Lovenox to heparin drip as per recommendations from Cardiology Add aspirin Will try to obtain records from [facility] and [facility] Cardiology recommends conservative management this time but will evaluate for cardiac catheterization once records are obtained from outside hospital Add beta-raquel and DEMARIO-inhibitor if blood pressure allows Echocardiogram (3) CHF (congestive heart failure): Qualifiers: Heart failure chronicity: unspecified Heart failure type: unspecified Qualified Code(s): I50.9 - Heart failure, unspecified Code(s): I50.9 - Heart failure, unspecified Status: Acute Assessment and Plan: CT scan shows pulmonary edema and pleural effusion Elevated BNP Check echocardiogram Lasix ordered (4) Urinary tract infection: Qualifiers: Hematuria presence: with hematuria Urinary tract infection type: acute cystitis Qualified Code(s): N30.01 - Acute cystitis with hematuria Code(s): N39.0 - Urinary tract infection, site not specified Status: Acute Assessment and Plan: Blood and urine cultures ordered IV Rocephin (5) Poor intravenous access: Code(s): Z78.9 - Other specified health status Status: Acute Assessment and Plan: Patient is on Lovenox hence PICC line obtained as medical necessity as patient needed multiple infusions and had poor IV access including heparin drip Additional Plan DVT prophylaxis -heparin drip Stress ulcer prophylaxis -PPI Nutrition -NPO Code Status - Full Code Patient has no family listed in the contact information. Patient's is also currently admitted at a different hospital for knee surgery. I spoke to long term care social worker Arianne who is a long term care social worker with patient's and son as they have cognitive deficits. She told me the patient does not take care of himself and does not take his meds or keeps his appointment. She did not know details about his medical history. She states the patient gets his care at [facility] and 1 of his amputation was done at [facility]. She states the patient's would be able to make decisions for him but does need help and advice from her friends Total Critical Care Time - 32 minutes Due to a high probability of clinically significant, life threatening deterioration, the patient required my highest level of preparedness to intervene emergently and I personally spent this critical care time directly and personally managing the patient. This critical care time included obtaining a history; examining the patient; pulse oximetry; ordering and review of studies; arranging urgent treatment with development of a management plan; evaluation of patient's response to treatment; frequ
[2021-11-23] MEDS: PERFLUTREN LIPID MICROSPHERES 1.5 ML VIAL DILUTED TO 10 ML TOTAL VOLUME IV PUSH (12:05)
--- NOTE | 2021-11-23 12:06 | IVDEFINITY ---
Prior to administration of IV Definity the patient was educated on the risks and benefits of the imaging enhancing agent including potential adverse side effects. The patient verbalized understanding. Allergies were verified. No exclusion criteria were identified and at least one of the following inclusion criteria were met: 1) physician request, 2) patient technically difficult to image (per the [place] guidelines of two or more segments not discernable within the apical view), or 3) questionable left ventricular function. ?
[2021-11-23 12:29] LABS: Glucose Point of Care 124 mg/dl (65-105)
[2021-11-23] MEDS: PROPOFOL IV EMULSION 100 ML 22.7 MG IV CONT (14:54)
[2021-11-23] MEDS: CENTRAL LINE FLUSH 10 ML IV PUSH ×2 (15:01→21:47)
[2021-11-23 18:11] LABS: Glucose Point of Care 102 mg/dl (65-105)
[2021-11-23] MEDS: HEPARIN SOD/D5W 100 UNITS/ML 25,000 UNITS/250 ML BAG 9 UNITS IV CONT (19:28)
--- NOTE | 2021-11-23 20:15 | PM.IMPN ---
Progress Note: A&P Assessment and Plan (1) Acute respiratory failure: Code(s): J96.00 - Acute respiratory failure, unspecified whether with hypoxia or hypercapnia Status: Acute Assessment and Plan: Acute Respiratory failure secondary to pulmonary edema and congestive heart failure Patient was intubated in the field CT scan of the chest showed: 1. No pulmonary embolus. Sensitivity is mildly decreased by motion artifact. 2. Mild pulmonary edema. 3. Small pleural effusions. 4. Mild emphysema. 5. Cardiomegaly. 6. Cirrhosis of the liver. Continue full mechanical ventilation support to prevent hypoxemia/hypercarbia and end organ damage. ABG reviewed Lasix IV given and will repeat later today Low tidal volume ventilation strategy to prevent volutrauma Bronchodilators -Management per ICU (2) Non-STEMI (non-ST elevated myocardial infarction): Code(s): I21.4 - Non-ST elevation (NSTEMI) myocardial infarction Status: Acute Assessment and Plan: Patient likely has vascular disease as evidenced by history of diabetes and bilateral AKA Elevated troponin but EKG did not show any ST elevation but was abnormal Discussed with Cardiology Switch from Lovenox to heparin drip as per recommendations from Cardiology Add aspirin Will try to obtain records from [facility] and [facility] Cardiology recommends conservative management this time but will evaluate for cardiac catheterization once records are obtained from outside hospital Add beta-raquel and DEMARIO-inhibitor if blood pressure allows Echocardiogram (3) CHF (congestive heart failure): Qualifiers: Heart failure chronicity: unspecified Heart failure type: unspecified Qualified Code(s): I50.9 - Heart failure, unspecified Code(s): I50.9 - Heart failure, unspecified Status: Acute Assessment and Plan: CT scan shows pulmonary edema and pleural effusion Elevated BNP Check echocardiogram Lasix ordered -Appreciate recommendations from Cardiology (4) Urinary tract infection: Qualifiers: Hematuria presence: with hematuria Urinary tract infection type: acute cystitis Qualified Code(s): N30.01 - Acute cystitis with hematuria Code(s): N39.0 - Urinary tract infection, site not specified Status: Acute Assessment and Plan: Blood and urine cultures ordered -Continue ceftriaxone (5) Poor intravenous access: Code(s): Z78.9 - Other specified health status Status: Acute Assessment and Plan: PICC line placed this morning. Subjective Date/time seen: 11/23/21 20:15 Patient intubated and sedated. Exam Narrative: GENERAL: intubated, sedated HEENT: Normocephalic, atraumatic NECK: Supple CV: Normal S1, S2, RRR, No MRG RESP: Coarse breath sounds bilaterally EXTREMITIES: Bilateral AKA SKIN: warm, dry and intact. Many tattoos. NEURO: Intubated and sedated Objective Data Vital Signs Vital Signs: Vital Signs - 24 hr 11/22/21 23:40 11/22/21 23:56 11/23/21 00:02 Temperature 97.4 F L Pulse Rate 110 H 117 H 114 H Respiratory Rate 23 H 25 H Blood Pressure 140/78 Pulse Oximetry 100 98 Oxygen Delivery Mechanical Ventilation Mechanical Ventilation Fraction of Inspired Oxygen 50 11/23/21 01:41 11/23/21 00:07 11/23/21 03:16 Temperature Pulse Rate 111 H 115 H 104 H Respiratory Rate 26 H Blood Pressure Pulse Oximetry 93 Oxygen Delivery Mechanical Ventilation Fraction of Inspired Oxygen 50 11/23/21 03:48 11/23/21 04:03 11/23/21 04:16 Temperature Pulse Rate 106 H 111 H Respiratory Rate 26 H Blood Pressure 138/89 Pulse Oximetry 100 93 100 Oxygen Delivery Mechanical Ventilation Mechanical Ventilation Fraction of Inspired Oxygen 40 40 11/23/21 05:09 11/23/21 05:15 11/23/21 04:55 Temperature 97.9 F Pulse Rate 97 102 H Respiratory Rate 24 H Blood Pressure 100/70 Pulse Oximetry 97
[2021-11-24] VITALS (35 sets, daily range): BP systolic 79–117; BP diastolic 59–80; PULSE 70–122; RESP 16–27; TEMP 35.9–37.8; O2SAT 88–100
[2021-11-24 00:31] LABS: Glucose Point of Care 115 mg/dl (65-105)
[2021-11-24] MEDS: PROPOFOL IV EMULSION 100 ML 25.54 MG IV CONT (01:32)
[2021-11-24 01:51] LABS: Partial Thromboplastin Time 49.9 SECONDS (22.3-36.8)
[2021-11-24] MEDS: HEPARIN SODIUM 5,000 UNITS/ML VIAL 4000 UNITS IV PUSH (02:15)
[2021-11-24 05:02] LABS: Basophils Absolute Auto 0.1 K/mm3 (0.0-0.1); Basophils Percent Auto 0.5 % (0.2-1.2); Eosinophils Absolute Auto 0.7 K/mm3 (0-0.3); Eosinophils Percent Auto 5.2 % (0-4.4); Hematocrit 27.1 % (42.0-52.0); Hemoglobin 7.6 g/dL (14.0-18.0); Immature Granulocyte Absolute 0.09 K/mm3 (0.00-0.031); Immature Granulocyte Percent A 0.7 % (0-0.5); Lymphocytes Absolute Auto 1.55 K/mm3 (0.9-3.2); Lymphocytes Percent Auto 11.8 % (18.3-44.2); Mean Corpuscular Hemoglobin 20.9 pg (26-34); Mean Corpuscular Volume 74.7 fl (80-100); Mean Platelet Volume 8.9 fl (7.4-10.4); Monocytes Absolute Auto 1.4 K/mm3 (0.1-0.6); Neutrophils Absolute Auto 9.3 K/mm3 (1.3-6.7); Neutrophils Percent Auto 70.8 % (45.5-73.1); Nucleated Red Blood Cells Perc 0.2 % (0.0-0.2); Platelet Count Result 400 k/mm3 (150-375); Red Blood Count 3.63 M/mm3 (4.6-6.20); White Blood Count 13.1 K/mm3 (4.5-10.0)
[2021-11-24 05:13] LABS: Alveolar/Arterial O2 Gradient 106.2 mmHg; Carboxyhemoglobin 1.4 % THb (0-2.0); Fractional Inspired Oxygen 35 %; HCO3 ABG 20.1 mEq/l (22.0-26.0); Methemoglobin ABG 0.3 %THb (0-1.5); Oxygen Content ABG 10.9 %vol (16.0-22.0); Oxygen Saturation ABG 96.3 % (95.0-100.0); Oxyhemoglobin 94.1 % THb (90.0-100.0); PCO2 ABG 42.9 mmHg (35.0-45.0); PO2 ABG 93.5 mmHg (80.0-100.0); PO2 FiO2 Ratio Arterial Blood 2.67 %; Reduced Hemoglobin 4.2 %THb (0-5.0); Total Hemoglobin 8.1 g/dL (12.0-18.0)
[2021-11-24 05:14] LABS: Device VENTILATOR; Modified Allen's Test Unable to perform; Site Drawn RIGHT RADIAL; pH ABG 7.289 (7.350-7.450)
[2021-11-24 05:15] LABS: Arterial Blood Gas PEEP 5 cmH2O; Arterial Blood Gas Tidal Volume 500 ml; Arterial Blood Gas Vent Mode CMV; Arterial Blood Gas Ventilator rate 16 /MIN
[2021-11-24 05:23] LABS: Alanine Aminotransferase 20 U/L (6-50); Albumin Level 3.4 g/dL (3.5-5.1); Alkaline Phosphatase 114 U/L (38-126); Anion Gap 5 mmol/L (8-16); Aspartate Amino Transferase 95 U/L (17-59); Bilirubin,Total 0.6 mg/dL (0.2-1.3); Blood Urea Nitrogen 19 mg/dL (9-20); Carbon Dioxide 23 mmol/L (22-30); Chloride 112 mmol/L (98-107); Estimated CRCL calculation 54 ml/min; Estimated Glomerular Filt Rate 51; Glucose 110 mg/dL (65-110); Magnesium 2.2 mg/dL (1.6-2.3); Phosphorus 4.1 mg/dL (2.5-4.5); Potassium 3.6 mmol/L (3.4-5.0); Sodium 140 mmol/L (137-145)
[2021-11-24 05:24] LABS: Anisocytosis 1+ (NORMAL); Hypochromasia 1+ (NORMAL)
[2021-11-24 05:25] LABS: Spherocytes 1+ (NORMAL)
[2021-11-24] MEDS: PROPOFOL IV EMULSION 100 ML 22.7 MG IV CONT ×3 (05:41→13:30)
[2021-11-24] MEDS: CENTRAL LINE FLUSH 10 ML IV PUSH ×2 (05:43→21:42)
[2021-11-24] MEDS: PANTOPRAZOLE SODIUM IV 40 MG VIAL IV PUSH (08:12)
[2021-11-24] MEDS: ASPIRIN 325 MG TABLET FEED TUBE (08:12)
[2021-11-24] MEDS: MINERAL OIL/WHITE PETROLATUM OINTMENT 1 APPLIC EACH EYE ×2 (08:12→21:44)
[2021-11-24] MEDS: POTASSIUM CHLORIDE 20 MEQ PACKET (FOR LIQUID) 40 MEQ FEED TUBE (08:12)
[2021-11-24] MEDS: SIMVASTATIN 10 MG TABLET PO (08:22)
[2021-11-24] MEDS: METOPROLOL TARTRATE 12.5 MG TABLET PO (08:22)
[2021-11-24] MEDS: dexmedeTOMIDine 400 MCG/100 ML 400 MCG/100 ML BAG IV CONT (08:42)
--- NOTE | 2021-11-24 08:49 | PM.IMPN ---
Progress Note: A&P Assessment and Plan (1) Acute respiratory failure: Code(s): J96.00 - Acute respiratory failure, unspecified whether with hypoxia or hypercapnia Status: Acute Assessment and Plan: Acute Respiratory failure secondary to pulmonary edema and congestive heart failure -Management per ICU (2) Non-STEMI (non-ST elevated myocardial infarction): Code(s): I21.4 - Non-ST elevation (NSTEMI) myocardial infarction Status: Acute Assessment and Plan: Appreciate recommendations from Cardiology. (3) CHF (congestive heart failure): Qualifiers: Heart failure chronicity: unspecified Heart failure type: unspecified Qualified Code(s): I50.9 - Heart failure, unspecified Code(s): I50.9 - Heart failure, unspecified Status: Acute Assessment and Plan: CT scan shows pulmonary edema and pleural effusion Elevated BNP Check echocardiogram Lasix ordered -Appreciate recommendations from Cardiology (4) Urinary tract infection: Qualifiers: Hematuria presence: with hematuria Urinary tract infection type: acute cystitis Qualified Code(s): N30.01 - Acute cystitis with hematuria Code(s): N39.0 - Urinary tract infection, site not specified Status: Acute Assessment and Plan: Blood cultures with no growth. Urine culture pending. -Continue ceftriaxone (5) Poor intravenous access: Code(s): Z78.9 - Other specified health status Status: Acute Assessment and Plan: PICC line placed. Subjective Date/time seen: 11/24/21 16:49 Patient intubated and sedated. Review of Systems Review of Systems: ROS unobtainable: Yes unobtainable due to endotracheal tube Exam Narrative: GENERAL: intubated, sedated HEENT: Normocephalic, atraumatic NECK: Supple CV: Normal S1, S2, RRR, No MRG RESP: Coarse breath sounds bilaterally EXTREMITIES: Bilateral AKA SKIN: warm, dry and intact. Many tattoos. NEURO: Intubated and sedated Objective Data Vital Signs Vital Signs: Vital Signs - 24 hr 11/23/21 16:53 11/23/21 17:37 11/23/21 18:00 Temperature Pulse Rate 82 83 86 Respiratory Rate 16 Blood Pressure Pulse Oximetry 97 Oxygen Delivery Mechanical Ventilation Fraction of Inspired Oxygen 40 11/23/21 18:00 11/23/21 18:30 11/23/21 21:43 Temperature 98.6 F Pulse Rate 86 87 85 Respiratory Rate 18 16 17 Blood Pressure 98/71 L 98/68 L Pulse Oximetry 97 96 Oxygen Delivery Fraction of Inspired Oxygen 11/23/21 20:00 11/23/21 20:00 11/23/21 22:01 Temperature Pulse Rate 90 Respiratory Rate 17 Blood Pressure Pulse Oximetry Oxygen Delivery Mechanical Ventilation Fraction of Inspired Oxygen 35 35 11/23/21 22:02 11/23/21 20:20 11/23/21 23:00 Temperature Pulse Rate 88 89 93 Respiratory Rate 17 Blood Pressure Pulse Oximetry 97 96 Oxygen Delivery Mechanical Ventilation Mechanical Ventilation Fraction of Inspired Oxygen 40 35 11/23/21 20:00 11/23/21 22:00 11/23/21 22:00 Temperature Pulse Rate 88 94 94 Respiratory Rate 17 Blood Pressure 104/68 Pulse Oximetry 96 Oxygen Delivery Fraction of Inspired Oxygen 11/24/21 00:00 11/24/21 00:00 11/24/21 00:00 Temperature 98.9 F Pulse Rate 97 93 Respiratory Rate 17 Blood Pressure 100/69 Pulse Oximetry 96 Oxygen Delivery Mechanical Ventilation Fraction of Inspired Oxygen 35 11/24/21 00:00 11/24/21 01:32 11/24/21 02:00 Temperature Pulse Rate 91 89 Respiratory Rate 19 Blood Pressure Pulse Oximetry Oxygen Delivery Fraction of Inspired Oxygen 35 11/24/21 02:00 11/24/21 02:05 11/24/21 04:00 Temperature 98.9 F Pulse Rate 89 86 92 Respiratory Rate 18 16 Blood Pressure 100/73 97/70 L Pulse Oximetry 95 96 95 Oxygen Delivery Mechanical Ventilation Fraction of Inspired Oxygen 35 11/24/21 04:56 11/24/21 04:00 11/24/21 04:00 T
--- NOTE | 2021-11-24 10:24 | ECG_ITS ---
Measurements Intervals [place] Rate: 103 P: HI: 0 QRS: -55 QRSD: 109 T: 122 QT: 347 QTc: 456 Interpretive Statements ATRIAL FIBRILLATION WITH RAPID VENTRICULAR RESPONSE MARKED LEFT AXIS DEVIATION [QRS AXIS < -30] ANTEROSEPTAL MYOCARDIAL INFARCTION [40+ ms Q WAVE IN V1-V4], OLD COMPARED WITH 11/23/2021 ATRIAL FIBRILLATION REPLACES SINUS RHYTHM Electronically Signed On 11-25-2021 16:17:47 CDT by Tawanda Snyder M.D.
[2021-11-24 10:57] LABS: Partial Thromboplastin Time 54.6 SECONDS (22.3-36.8)
[2021-11-24] MEDS: HEPARIN SODIUM 5,000 UNITS/ML VIAL 3000 UNITS IV PUSH ×2 (11:03→23:35)
--- NOTE | 2021-11-24 11:09 | PCFNICU ---
ICU Rounding Note: Pt current nutrition is Vital AF 1.2 at 20 ml/hr advancing to goal rate of 40 ml/hr. Last recorded weight is 96.8 kg, up from 94.6 kg on admit. Bowel Motility:No BM reported. Labs Reviewed:Cr 1.4, GFR 51, Alb 3.4, Hgb 7.6,Hct 27.1 Meds Noted: Lopressor, Heparin, Precedex, Rocephin,Zocor, Fentanyl. Skin: WNL Additional Notes: Patient remains on mechanical vent and tube feedings of Vital AF 1.2. Starting tube feedings today at 20 ml/hr, plans for goal rate at 40 ml/hr. Recommend tube feeding goal rate at 70 ml/hr providing 1848 kcals/116 gm protein/1050 ml water. Free water flush 30 ml q 4 hours. EKG planned for today. Following daily in ICU rounds and reassessing every Sunday and Sunday.
[2021-11-24] MEDS: NOREPINEPHRINE 8 MG/D5W 250 ML 8 MG/250 ML BAG 9.38 MG IV CONT (11:40)
--- NOTE | 2021-11-24 12:12 | WPDINTPN ---
Progress Note: A&P Assessment and Plan (1) Acute respiratory failure: Code(s): J96.00 - Acute respiratory failure, unspecified whether with hypoxia or hypercapnia Status: Acute Assessment and Plan: Acute Respiratory failure secondary to pulmonary edema and congestive heart failure Patient was intubated in the field CT scan of the chest showed: 1. No pulmonary embolus. Sensitivity is mildly decreased by motion artifact. 2. Mild pulmonary edema. 3. Small pleural effusions. 4. Mild emphysema. 5. Cardiomegaly. 6. Cirrhosis of the liver. I tried PSV 5/5 weaning trial this morning with patient quickly became tachycardic tachypneic with increased work of breathing desat. Trial was aborted and patient was placed on CMV and re sedated. Also went into AFib with RVR at that time Continue full mechanical ventilation support to prevent hypoxemia/hypercarbia and end organ damage. ABG reviewed Chest x-ray reviewed and withdraw ET tube by 1 cm Hold Lasix due to drop in blood pressure and slight increase increased Low tidal volume ventilation strategy to prevent volutrauma Bronchodilators (2) Non-STEMI (non-ST elevated myocardial infarction): Code(s): I21.4 - Non-ST elevation (NSTEMI) myocardial infarction Status: Acute Assessment and Plan: Patient likely has vascular disease as evidenced by history of diabetes and bilateral AKA and his current medication Per patient's pharmacy and patient's he has not taken any medication for months now. He does continue to smoke Elevated troponin but EKG did not show any ST elevation but was abnormal Discussed with Cardiology Continue heparin drip as per recommendations from Cardiology Continue aspirin resume statin Request faxed to obtain records from [facility] and [facility] Cardiology recommends conservative management this time but will evaluate for cardiac catheterization once records are obtained from outside hospital 0 Will Add beta-raquel and DEMARIO-inhibitor if blood pressure allows Echocardiogram reviewed 1. Left ventricular systolic function is moderately reduced, estimated at 35-40% with dyskinetic apex. ? 2. Left ventricular chamber dimension is mildly enlarged. ? 3. There is mildly increased left ventricular wall thickness. ? 4. There is no thrombus visualized in the left ventricle. ? 5. The left ventricular diastolic function is abnormal. ? 6. There is mild tricuspid valve regurgitation. ? 7. Mild pulmonary hypertension, estimated pulmonary arterial systolic pressure is 38 mmHg. ? 8. Technically difficult study with limited views with administration of definity contrast. (3) CHF (congestive heart failure): Qualifiers: Heart failure chronicity: unspecified Heart failure type: unspecified Qualified Code(s): I50.9 - Heart failure, unspecified Code(s): I50.9 - Heart failure, unspecified Status: Acute Assessment and Plan: CT scan shows pulmonary edema and pleural effusion Echocardiogram reviewed (4) Urinary tract infection: Qualifiers: Hematuria presence: with hematuria Urinary tract infection type: acute cystitis Qualified Code(s): N30.01 - Acute cystitis with hematuria Code(s): N39.0 - Urinary tract infection, site not specified Status: Acute Assessment and Plan: Blood and urine cultures ordered Continue IV Rocephin (5) Poor intravenous access: Code(s): Z78.9 - Other specified health status Status: Acute Assessment and Plan: Patient is on Lovenox hence PICC line was obtained as medical necessity as patient needed multiple infusions and had poor IV access including heparin drip (6) Atrial fibrillation with RVR: Code(s): I48.91 - Unspecified atrial fibrillation Status: Acute Assessment and Plan: Patient went into atrial fibrillation with RVR during sedation holiday and weaning trial Once he was recent dated his heart rate is in control
[2021-11-24 12:46] LABS: Glucose Point of Care 164 mg/dl (65-105)
[2021-11-24 12:53] LABS: Creatine Kinase 2755 U/L (55-170)
--- NOTE | 2021-11-24 13:14 | PM.PNCARD ---
Progress Note: A&P Assessment and Plan (1) Non-STEMI (non-ST elevated myocardial infarction): Code(s): I21.4 - Non-ST elevation (NSTEMI) myocardial infarction Status: Acute Assessment and Plan: Elevated troponins may represent an acute coronary event or could also simply be a type 2 infarction because of respiratory extremis hypoxemia and severe acidemia. His ST segment changes have improved following a intubation and ventilation. His records indicate that he has a history of coronary disease and previous stenting of this but details of this are unknown. Currently no plans to perform an ischemic evaluation in the form of coronary angiography. Continue supportive care. (2) CHF (congestive heart failure): Qualifiers: Heart failure chronicity: unspecified Heart failure type: unspecified Qualified Code(s): I50.9 - Heart failure, unspecified Code(s): I50.9 - Heart failure, unspecified Status: Acute Assessment and Plan: Has received IV furosemide. Improved. Moderate global LV dysfunction with an EF 30-35% Subjective Date/time seen: 11/24/21 13:14 Cardiology follow up Remains intubated and sedated in the ICU. Exam Const: Other: Intubated sedated white male bilateral high amputee with multiple tattoos HENMT: Mouth: Yes moist mucous membranes Eyes: Sclera: sclerae normal Neck: Neck: no JVD Carotids: no bruits Resp: Auscultation: rhonchi Other: ventilator controlled respiratory effort. Cardio: Rate: regular rate Rhythm: regular rhythm Heart sounds: no murmurs Other: GI: Auscultation: normal bowel sounds Urinary Catheter: Urinary Catheter: patent and draining Skin: General skin exam: normal color Neuro: Other: sedated Extrem: Other: Stumps looks clean bilaterally no wounds. Objective Data Vital Signs Vital Signs: Vital Signs - 24 hr 11/23/21 14:00 11/23/21 14:00 11/23/21 14:44 Temperature Pulse Rate 89 89 89 Respiratory Rate 17 17 Blood Pressure 101/75 Pulse Oximetry 98 Oxygen Delivery Fraction of Inspired Oxygen 11/23/21 14:23 11/23/21 14:37 11/23/21 14:54 Temperature Pulse Rate 92 89 89 Respiratory Rate 17 17 Blood Pressure Pulse Oximetry 97 Oxygen Delivery Mechanical Ventilation Fraction of Inspired Oxygen 40 11/23/21 15:00 11/23/21 16:19 11/23/21 15:15 Temperature Pulse Rate 109 H 83 91 Respiratory Rate 24 H 16 24 H Blood Pressure Pulse Oximetry Oxygen Delivery Fraction of Inspired Oxygen 11/23/21 16:23 11/23/21 16:00 11/23/21 16:00 Temperature Pulse Rate 83 81 Respiratory Rate 16 16 Blood Pressure Pulse Oximetry 97 Oxygen Delivery Mechanical Ventilation Fraction of Inspired Oxygen 40 40 11/23/21 16:00 11/23/21 16:53 11/23/21 16:30 Temperature 36.6 C Pulse Rate 82 82 82 Respiratory Rate 18 16 16 Blood Pressure 83/65 L Pulse Oximetry 97 Oxygen Delivery Fraction of Inspired Oxygen 11/23/21 16:00 11/23/21 17:37 11/23/21 18:00 Temperature Pulse Rate 94 83 86 Respiratory Rate Blood Pressure Pulse Oximetry 97 Oxygen Delivery Mechanical Ventilation Fraction of Inspired Oxygen 40 11/23/21 18:00 11/23/21 18:30 11/23/21 21:43 Temperature 37.0 C Pulse Rate 86 87 85 Respiratory Rate 18 16 17 Blood Pressure 98/71 L 98/68 L Pulse Oximetry 97 96 Oxygen Delivery Fraction of Inspired Oxygen 11/23/21 20:00 11/23/21 20:00 11/23/21 22:01 Temperature Pulse Rate 90 Respiratory Rate 17 Blood Pressure Pulse Oximetry Oxygen Delivery Mechanical Ventilation Fraction of Inspired Oxygen 35 35 11/23/21 22:02 11/23/21 20:20 11/23/21 23:00 Temperature Pulse Rate 88 89 93 Respiratory Rate 17 Blood Pressure Pulse Oximetry 97 96 Oxygen Delivery Mechanical Ventilation Mechanical Ventilation Fraction of Inspired Oxygen 40 35 11/23/21 20:00 11/23/21 22:00 06
[2021-11-24] MEDS: SODIUM CHLORIDE 0.9% IV 500 ML (13:28)
[2021-11-24] MEDS: MIDAZOLAM 100MG/NS 100ML(*CRX) 100 MG/100 ML BAG IV CONT (13:29)
[2021-11-24] MEDS: MIDAZOLAM HCL (*CRX) 2 MG/2 ML VIAL IV PUSH (13:29)
[2021-11-24] MEDS: LACTATED RINGERS 1,000 ML 100 ML IV CONT ×2 (13:30→23:19)
[2021-11-24] MEDS: ALTEPLASE 2 MG VIAL (CATHFLO) IV PUSH (13:31)
[2021-11-24 16:46] LABS: Partial Thromboplastin Time 81.5 SECONDS (22.3-36.8)
[2021-11-24] MEDS: HEPARIN SOD/D5W 100 UNITS/ML 25,000 UNITS/250 ML BAG 14 UNITS IV CONT (17:23)
[2021-11-24 17:42] LABS: Glucose Point of Care 148 mg/dl (65-105)
[2021-11-24 23:14] LABS: Glucose Point of Care 136 mg/dl (65-105)
[2021-11-24] MEDS: FENTANYL 2,500MCG/NS250ML(*CRX 2,500 MCG/250 ML BAG 10 MCG IV CONT (23:24)
[2021-11-24 23:26] LABS: Partial Thromboplastin Time 60.1 SECONDS (22.3-36.8)
[2021-11-25] VITALS (30 sets, daily range): BP systolic 70–122; BP diastolic 50–79; PULSE 59–100; RESP 22–24; TEMP 37.2–38.3; O2SAT 94–100
--- NOTE | 2021-11-25 03:45 | PC.NURSE ---
ETT dislodged while bathing pt. Dr. Alcala notified and quickly to pt's bedside. ETT at 17 cm at the lip. Pt maintaining O2 sats and pulling volumes on ventilator. Order for RT to advance ETT to 24 cm. Chest xray obtained. Dr. Alcala reviewed chest xray. Asked RT to advance tube another 2 cm.
[2021-11-25 05:23] LABS: Alveolar/Arterial O2 Gradient 79.8 mmHg; Base Excess ABG -2.6 mEq/l (+/-2.0); Fractional Inspired Oxygen 30 %; HCO3 ABG 23.5 mEq/l (22.0-26.0); Oxygen Content ABG 11.9 %vol (16.0-22.0); Oxygen Saturation ABG 94.7 % (95.0-100.0); Oxyhemoglobin 93.4 % THb (90.0-100.0); PCO2 ABG 46.8 mmHg (35.0-45.0); PO2 ABG 79.1 mmHg (80.0-100.0); PO2 FiO2 Ratio Arterial Blood 2.64 %; pH ABG 7.319 (7.350-7.450)
[2021-11-25 05:24] LABS: Arterial Blood Gas Vent Mode CMV; Arterial Blood Gas Ventilator rate 24 /MIN; Device VENTILATOR; Modified Allen's Test Pass; Site Drawn RIGHT RADIAL
[2021-11-25 05:25] LABS: Arterial Blood Gas PEEP 8 cmH2O; Arterial Blood Gas Tidal Volume 450 ml
[2021-11-25] MEDS: CENTRAL LINE FLUSH 10 ML IV PUSH ×3 (05:40→20:33)
[2021-11-25 05:53] LABS: Basophils Absolute Auto 0.1 K/mm3 (0.0-0.1); Basophils Percent Auto 0.6 % (0.2-1.2); Eosinophils Absolute Auto 0.4 K/mm3 (0-0.3); Eosinophils Percent Auto 3.3 % (0-4.4); Immature Granulocyte Absolute 0.11 K/mm3 (0.00-0.031); Immature Granulocyte Percent A 0.9 % (0-0.5); Mean Corpuscular HGB Conc 27.6 g/dl (32-36); Mean Corpuscular Hemoglobin 20.8 pg (26-34); Mean Corpuscular Volume 75.3 fl (80-100); Mean Platelet Volume 9.1 fl (7.4-10.4); Monocytes Absolute Auto 1.3 K/mm3 (0.1-0.6); Monocytes Percent Auto 10.1 % (2.6-8.5); Neutrophils Absolute Auto 9.1 K/mm3 (1.3-6.7); Neutrophils Percent Auto 73.1 % (45.5-73.1); Nucleated Red Blood Cells Perc 0.2 % (0.0-0.2); Platelet Count Result 396 k/mm3 (150-375); Red Blood Count 3.32 M/mm3 (4.6-6.20); Red Cell Distribution Width 19.9 % (11.5-14.5); White Blood Count 12.5 K/mm3 (4.5-10.0)
[2021-11-25 06:04] LABS: Partial Thromboplastin Time 59.9 SECONDS (22.3-36.8)
[2021-11-25 06:08] LABS: Magnesium 2.1 mg/dL (1.6-2.3); Phosphorus 3.5 mg/dL (2.5-4.5)
[2021-11-25] MEDS: HEPARIN SODIUM 5,000 UNITS/ML VIAL 3000 UNITS IV PUSH (06:28)
[2021-11-25 06:29] LABS: Hemoglobin 6.9 g/dL (14.0-18.0)
[2021-11-25 06:30] LABS: Hypochromasia 1+ (NORMAL); Platelet Clumps Present
[2021-11-25 06:31] LABS: Anisocytosis 1+ (NORMAL); Large Platelets Present
[2021-11-25 06:36] LABS: Glucose Point of Care 128 mg/dl (65-105)
--- NOTE | 2021-11-25 08:35 | PM.IMPN ---
Progress Note: A&P Assessment and Plan (1) Acute respiratory failure: Code(s): J96.00 - Acute respiratory failure, unspecified whether with hypoxia or hypercapnia Status: Acute Assessment and Plan: Acute Respiratory failure secondary to pulmonary edema and congestive heart failure -Management per ICU (2) Non-STEMI (non-ST elevated myocardial infarction): Code(s): I21.4 - Non-ST elevation (NSTEMI) myocardial infarction Status: Acute Assessment and Plan: Appreciate recommendations from Cardiology. (3) CHF (congestive heart failure): Qualifiers: Heart failure chronicity: unspecified Heart failure type: unspecified Qualified Code(s): I50.9 - Heart failure, unspecified Code(s): I50.9 - Heart failure, unspecified Status: Acute Assessment and Plan: CT scan shows pulmonary edema and pleural effusion Elevated BNP Echo with EF 35-40% with dyskinetic apex. Mild pulmonary hypertension. No thrombus. Lasix given. -Appreciate recommendations from Cardiology (4) Urinary tract infection: Qualifiers: Hematuria presence: with hematuria Urinary tract infection type: acute cystitis Qualified Code(s): N30.01 - Acute cystitis with hematuria Code(s): N39.0 - Urinary tract infection, site not specified Status: Acute Assessment and Plan: Blood cultures with no growth. Urine culture w/ > 100,000 non uropathogenic gram positive organism. -Continue ceftriaxone (5) Poor intravenous access: Code(s): Z78.9 - Other specified health status Status: Acute Assessment and Plan: PICC line placed. Subjective Date/time seen: 11/25/21 8:30 Patient intubated and sedated. Review of Systems Review of Systems: ROS unobtainable: Yes unobtainable due to endotracheal tube Exam Narrative: GENERAL: intubated, sedated HEENT: Normocephalic, atraumatic NECK: Supple CV: Normal S1, S2, RRR, No MRG RESP: Coarse breath sounds bilaterally EXTREMITIES: Bilateral AKA SKIN: warm, dry and intact. Many tattoos. NEURO: Intubated and sedated Objective Data Vital Signs Vital Signs: Vital Signs - 24 hr 11/24/21 20:00 11/24/21 20:00 11/24/21 21:33 Temperature 99.9 F H Pulse Rate 89 Respiratory Rate 24 H Blood Pressure 114/68 Pulse Oximetry 99 Oxygen Delivery Fraction of Inspired Oxygen 30 11/24/21 21:40 11/24/21 21:42 11/24/21 21:00 Temperature Pulse Rate 86 84 88 Respiratory Rate 24 H Blood Pressure 117/66 Pulse Oximetry 99 Oxygen Delivery Mechanical Ventilation Fraction of Inspired Oxygen 30 11/24/21 23:03 11/24/21 23:24 11/24/21 23:24 Temperature Pulse Rate 75 82 82 Respiratory Rate 24 H 24 H Blood Pressure Pulse Oximetry 99 Oxygen Delivery Mechanical Ventilation Fraction of Inspired Oxygen 30 11/24/21 20:00 11/24/21 22:00 11/24/21 20:00 Temperature Pulse Rate 84 85 Respiratory Rate Blood Pressure Pulse Oximetry Oxygen Delivery Mechanical Ventilation Fraction of Inspired Oxygen 30 11/24/21 22:00 11/25/21 00:00 11/25/21 00:00 Temperature 99.4 F Pulse Rate 85 95 91 Respiratory Rate 24 H 24 H Blood Pressure 102/67 100/67 Pulse Oximetry 98 98 Oxygen Delivery Fraction of Inspired Oxygen 11/25/21 00:00 11/25/21 00:00 11/25/21 00:44 Temperature Pulse Rate 99 Respiratory Rate Blood Pressure 105/66 Pulse Oximetry Oxygen Delivery Mechanical Ventilation Fraction of Inspired Oxygen 30 30 11/25/21 02:00 11/25/21 02:00 11/25/21 01:57 Temperature Pulse Rate 88 88 96 Respiratory Rate 24 H Blood Pressure 103/65 110/79 Pulse Oximetry 98 Oxygen Delivery Fraction of Inspired Oxygen 11/25/21 02:00 11/25/21 03:45 11/25/21 04:00 Temperature 99.8 F H Pulse Rate 84 94 Respiratory Rate 24 H Blood Pressure 120/71 Pulse Oximetry 98 97 Oxygen Delivery Mechanical
[2021-11-25] MEDS: PANTOPRAZOLE SODIUM IV 40 MG VIAL IV PUSH ×2 (08:46→20:32)
[2021-11-25] MEDS: SIMVASTATIN 10 MG TABLET PO (08:46)
[2021-11-25] MEDS: ASPIRIN 325 MG TABLET FEED TUBE (08:46)
[2021-11-25] MEDS: MINERAL OIL/WHITE PETROLATUM OINTMENT 1 APPLIC EACH EYE ×2 (08:46→20:31)
[2021-11-25 09:23] LABS: Alanine Aminotransferase 17 U/L (6-50); Albumin Level 2.9 g/dL (3.5-5.1); Alkaline Phosphatase 85 U/L (38-126); Anion Gap 4 mmol/L (8-16); Aspartate Amino Transferase 65 U/L (17-59); Bilirubin,Total 0.6 mg/dL (0.2-1.3); Blood Urea Nitrogen 19 mg/dL (9-20); Calcium 7.4 mg/dL (8.4-10.2); Carbon Dioxide 24 mmol/L (22-30); Chloride 110 mmol/L (98-107); Estimated CRCL calculation 62 ml/min; Estimated Glomerular Filt Rate > 60; Glucose 209 mg/dL (65-110); Sodium 138 mmol/L (137-145)
--- NOTE | 2021-11-25 09:57 | PM.PNCARD ---
Progress Note: A&P Assessment and Plan (1) Non-STEMI (non-ST elevated myocardial infarction): Code(s): I21.4 - Non-ST elevation (NSTEMI) myocardial infarction Status: Acute Assessment and Plan: Elevated troponins may represent an acute coronary event or could also simply be a type 2 infarction because of respiratory extremis hypoxemia and severe acidemia. His ST segment changes have improved following a intubation and ventilation. His records indicate that he has a history of coronary disease and previous stenting of this but details of this are unknown. I spoke with the patient's sister who was at the bedside who thinks his PCI took place at [facility]. I have placed a records request for the cath report. Currently no plans to perform an ischemic evaluation in the form of coronary angiography. He has developed anemia, heparin gtt has been discontinued. Continue supportive care. (2) CHF (congestive heart failure): Qualifiers: Heart failure chronicity: unspecified Heart failure type: unspecified Qualified Code(s): I50.9 - Heart failure, unspecified Code(s): I50.9 - Heart failure, unspecified Status: Acute Assessment and Plan: Has received IV furosemide. Improved. Moderate global LV dysfunction with an EF 30-35% Subjective Date/time seen: 11/25/21 09:57 Cardiology follow up visit No acute events overnight. Remains intubated and sedated. Attempt to lift sedation yesterday was unsuccessful because of agitation. Review of Systems Review of Systems: ROS unobtainable: Yes unobtainable due to endotracheal tube Exam Const: Other: Intubated sedated white male bilateral high amputee with multiple tattoos HENMT: Mouth: Yes moist mucous membranes Eyes: Sclera: sclerae normal Neck: Neck: no JVD Carotids: no bruits Other: no obvious JVD carotid pulses are intact bilaterally no bruits are heard over the neck Resp: Auscultation: rhonchi Other: ventilator controlled respiratory effort. Cardio: Rate: regular rate Rhythm: regular rhythm Heart sounds: no murmurs Other: GI: Auscultation: normal bowel sounds Urinary Catheter: Urinary Catheter: patent and draining Skin: General skin exam: normal color Neuro: Other: sedated Extrem: Other: Stumps looks clean bilaterally no wounds. Objective Data Vital Signs Vital Signs: Vital Signs - 24 hr 11/24/21 10:06 11/24/21 10:58 11/24/21 12:00 Temperature 36.6 C Pulse Rate 70 70 88 Respiratory Rate 20 20 24 H Blood Pressure 108/80 Pulse Oximetry 88 L Oxygen Delivery Fraction of Inspired Oxygen 11/24/21 10:00 11/24/21 12:00 11/24/21 12:00 Temperature Pulse Rate 101 H 78 Respiratory Rate 27 H Blood Pressure Pulse Oximetry 98 Oxygen Delivery Mechanical Ventilation Fraction of Inspired Oxygen 50 50 11/24/21 13:29 11/24/21 13:41 11/24/21 13:41 Temperature Pulse Rate 77 83 75 Respiratory Rate 27 H 24 H Blood Pressure 79/59 L Pulse Oximetry 100 Oxygen Delivery Fraction of Inspired Oxygen 11/24/21 11:50 11/24/21 14:30 11/24/21 16:00 Temperature Pulse Rate 85 79 88 Respiratory Rate 24 H Blood Pressure Pulse Oximetry 92 98 100 Oxygen Delivery Mechanical Ventilation Mechanical Ventilation Mechanical Ventilation Fraction of Inspired Oxygen 40 45 40 11/24/21 16:00 11/24/21 16:00 11/24/21 16:00 Temperature 35.9 C L Pulse Rate 82 81 Respiratory Rate 24 H Blood Pressure 104/63 Pulse Oximetry 100 Oxygen Delivery Fraction of Inspired Oxygen 40 11/24/21 17:34 11/24/21 17:34 11/24/21 17:02 Temperature 37.8 C H Pulse Rate 88 82 88 Respiratory Rate 24 H Blood Pressure 115/71 Pulse Oximetry 98 100 Oxygen Delivery Mechanical Ventilation Fraction of Inspired Oxygen 30 11/24/21 12:38 11/24/21 20:00 11/24/21 20:00 Temperature Pulse Rate 101 H 89 Respiratory Rate 24
--- NOTE | 2021-11-25 10:22 | WPDCDIQUERY2 ---
CDI Query Clarification Request ?11/24 Hospitalist documented: CHF (congestive heart failure): ?Qualifiers: ?Heart failure chronicity:?unspecified??Heart failure type:?unspecified? Qualified Code(s):?I50.9 - Heart failure, unspecified ?Code(s): I50.9 - Heart failure, unspecified ?Status:?Acute ?Assessment and Plan: CT scan shows pulmonary edema and pleural effusion Elevated BNP Check echocardiogram Lasix ordered -Appreciate recommendations from Cardiology Please clarify if diagnosis: CHF, Congestive Heart Failure is: Acute, Chronic, Acute on Chronic, other, unable to determine. Please clarify if diagnosis: CHF, Congestive Heart Failure is: Systolic, Diastolic, combined, or unable to determine. <Nehal Natarajan - Last Filed: 11/25/21 10:27> Clarified Diagnosis (1) CHF (congestive heart failure): Qualifiers: Heart failure chronicity: unspecified Heart failure type: unspecified Qualified Code(s): I50.9 - Heart failure, unspecified <Nehal Natarajan - Last Filed: 11/25/21 10:27> Code(s): I50.9 - Heart failure, unspecified <Nehal Natarajan - Last Filed: 11/25/21 10:27> Status: Acute <Nehal Ntaarajan - Last Filed: 11/25/21 10:27> Assessment and Plan: Unable to determine. Patient presented with NSTEMI and was immediately sent to ICU. No prior history at this hospital. <Natasha Peoples MD - Last Filed: 12/01/21 00:54> Assessment and Plan: Unable to determine. Patient presented with NSTEMI. <Natasha Peoples MD - Last Filed: 12/01/21 00:54>
[2021-11-25] MEDS: METOCLOPRAMIDE HCL 10 MG/10 ML SOLN UDC FEED TUBE ×3 (11:03→20:31)
[2021-11-25] MEDS: polyethylene glycoL 3350 17 GM POWD.PACK PO (11:03)
--- NOTE | 2021-11-25 11:16 | PCNFU ---
Nutrition Follow-Up Complete: Inadequate Oral Intake as related to mechanical ventilation as evidenced by NPO Goal: Meet estimated nutritional needs Patient is progressing towards goal. We will continue current goal Pt current nutrition is Vital AF 1.2 at 30 ml/hr goal rate at 60 ml/hr Last recorded weight is 95.6 kg, up from 94.6 kg on admit. Bowel Motility:No BM reported. Labs Reviewed: Hct 25.0,Hgb 6.9, Glu 209, Alb 2.9 Meds Noted:Precedex, Reglan, Miralax, Lasix, Zocor, Versed, Rocephin Skin: WNL Additional Notes: Patient remains on mechanical ventilator, tube feeding of Vital AF 1.2 at 40 ml/hr. Residuals reported 300s. Prokinetic agent started for GI motility. Recommendations for tube feeding goal rate at 60 ml/hr which will provide 1584 kcals/99 gms protein/1071 ml water. Free water flush 30 ml q 4 hours. 1 unit of blood ordered. Possible breathing trial soon. Agree with diet orders. Monitoring: Following in ICU rounds and reassessing every Sunday and Sunday.
[2021-11-25 11:22] LABS: Glucose Point of Care 130 mg/dl (65-105)
--- NOTE | 2021-11-25 12:02 | WPDINTPN ---
Progress Note: A&P Assessment and Plan (1) Acute respiratory failure: Code(s): J96.00 - Acute respiratory failure, unspecified whether with hypoxia or hypercapnia Status: Acute Assessment and Plan: Acute Respiratory failure secondary to pulmonary edema and congestive heart failure Patient was intubated in the field CT scan of the chest showed: 1. No pulmonary embolus. Sensitivity is mildly decreased by motion artifact. 2. Mild pulmonary edema. 3. Small pleural effusions. 4. Mild emphysema. 5. Cardiomegaly. 6. Cirrhosis of the liver. 11/24 tried PSV / weaning trial with patient quickly became tachycardic tachypneic with increased work of breathing desat. Trial was aborted and patient was placed on CMV and re sedated. Also went into AFib with RVR at that time. It took many hours for patient to stabilize post that I will start patient on Precedex infusion before making further attempt. Patient also needs blood transfusion due to drop in hemoglobin. Continue full mechanical ventilation support to prevent hypoxemia/hypercarbia and end organ damage. ABG reviewed Chest x-ray reviewed Will give Lasix post transfusion Low tidal volume ventilation strategy to prevent volutrauma Bronchodilators (2) Non-STEMI (non-ST elevated myocardial infarction): Code(s): I21.4 - Non-ST elevation (NSTEMI) myocardial infarction Status: Acute Assessment and Plan: Patient likely has vascular disease as evidenced by history of diabetes and bilateral AKA and his current medication Per patient's pharmacy and patient's he has not taken any medication for months now. He does continue to smoke Elevated troponin but EKG did not show any ST elevation but was abnormal Discussed with Cardiology and there is no plan for angiogram at this time. Okay with discontinuing heparin Discontinue heparin drip due to drop in hemoglobin until hemoglobin is stable Continue aspirin and statin Request faxed to obtain records from [facility] Records obtained from primary care physician which does mention that patient has stents but no other details Cardiology recommends conservative management this time but will evaluate for cardiac catheterization once records are obtained from outside hospital Will Add beta-raquel and DEMARIO-inhibitor if blood pressure allows Echocardiogram reviewed 1. Left ventricular systolic function is moderately reduced, estimated at 35-40% with dyskinetic apex. ? 2. Left ventricular chamber dimension is mildly enlarged. ? 3. There is mildly increased left ventricular wall thickness. ? 4. There is no thrombus visualized in the left ventricle. ? 5. The left ventricular diastolic function is abnormal. ? 6. There is mild tricuspid valve regurgitation. ? 7. Mild pulmonary hypertension, estimated pulmonary arterial systolic pressure is 38 mmHg. ? 8. Technically difficult study with limited views with administration of definity contrast. (3) CHF (congestive heart failure): Qualifiers: Heart failure chronicity: unspecified Heart failure type: unspecified Qualified Code(s): I50.9 - Heart failure, unspecified Code(s): I50.9 - Heart failure, unspecified Status: Acute Assessment and Plan: CT scan shows pulmonary edema and pleural effusion Echocardiogram reviewed Resume Lasix today (4) Urinary tract infection: Qualifiers: Hematuria presence: with hematuria Urinary tract infection type: acute cystitis Qualified Code(s): N30.01 - Acute cystitis with hematuria Code(s): N39.0 - Urinary tract infection, site not specified Status: Acute Assessment and Plan: Blood and urine cultures done and pending Continue IV Rocephin (5) Poor intravenous access: Code(s): Z78.9 - Other specified health status Status: Acute Assessment and Plan: Patient is on Lovenox hence PICC line was obtained as medical necessity as patient needed
[2021-11-25] MEDS: MIDAZOLAM 100MG/NS 100ML(*CRX) 100 MG/100 ML BAG IV CONT (13:43)
[2021-11-25] MEDS: FUROSEMIDE INJ 40 MG/4 ML VIAL IV PUSH (16:21)
[2021-11-25 16:38] LABS: Hematocrit 25.6 % (42.0-52.0); Hemoglobin 7.3 g/dL (14.0-18.0)
[2021-11-25 16:47] LABS: Creatine Kinase 1235 U/L (55-170)
[2021-11-25 16:54] LABS: Glucose Point of Care 137 mg/dl (65-105)
[2021-11-25] MEDS: NOREPINEPHRINE 8 MG/D5W 250 ML 8 MG/250 ML BAG 9.38 MG IV CONT (17:18)
--- NOTE | 2021-11-25 22:32 | ECG_ITS ---
Measurements Intervals [place] Rate: 53 P: 0 WV: 191 QRS: -46 QRSD: 115 T: 147 QT: 388 QTc: 367 Interpretive Statements SINUS BRADYCARDIA WITH MARKED SINUS ARRHYTHMIA LOW QRS VOLTAGE IN PRECORDIAL LEADS [QRS DEFLECTION < 1.0 mV IN CHEST LEADS] LEFT ANTERIOR FASCICULAR BLOCK [QRS AXIS <= -45, QR IN I, RS IN II] POOR R-WAVE PROGRESSION COMPARED TO ECG 11/24/2021 09:29:51 SINUS RHYTHM REPLACES ATRIAL FIBRILLATION Electronically Signed On 11-26-2021 7:54:56 CDT by Tawanda Snyder M.D.
--- NOTE | 2021-11-25 23:24 | ECG_ITS ---
Measurements Intervals [place] Rate: 70 P: RI: 0 QRS: -47 QRSD: 108 T: 145 QT: 359 QTc: 389 Interpretive Statements SINUS RHYTHM WITH PACS MARKED LEFT AXIS DEVIATION [QRS AXIS < -30] LOW QRS VOLTAGE IN PRECORDIAL LEADS [QRS DEFLECTION < 1.0 mV IN CHEST LEADS] PATTERN CONSISTENT WITH PULMONARY DISEASE POOR R-WAVE PROGRESSION NONSPECIFIC ST AND T ABNORMALITY WARNING: DATA QUALITY MAY AFFECT INTERPRETATION COMPARED TO ECG 11/25/2021 22:44:39 NO DIFFERENCE Electronically Signed On 11-26-2021 7:55:49 CDT by Tawanda Snyder M.D.
[2021-11-26] VITALS (26 sets, daily range): BP systolic 86–125; BP diastolic 62–77; PULSE 64–117; RESP 19–26; TEMP 36.7–38.1; O2SAT 89–99
[2021-11-26 00:25] LABS: Glucose Point of Care 145 mg/dl (65-105)
[2021-11-26 03:48] LABS: Basophils Absolute Auto 0.1 K/mm3 (0.0-0.1); Basophils Percent Auto 0.6 % (0.2-1.2); Eosinophils Absolute Auto 0.4 K/mm3 (0-0.3); Hematocrit 27.3 % (42.0-52.0); Hemoglobin 7.7 g/dL (14.0-18.0); Immature Granulocyte Absolute 0.14 K/mm3 (0.00-0.031); Immature Granulocyte Percent A 1.2 % (0-0.5); Lymphocytes Absolute Auto 1.58 K/mm3 (0.9-3.2); Lymphocytes Percent Auto 13.8 % (18.3-44.2); Mean Corpuscular HGB Conc 28.2 g/dl (32-36); Mean Corpuscular Hemoglobin 21.9 pg (26-34); Mean Corpuscular Volume 77.6 fl (80-100); Mean Platelet Volume 9.1 fl (7.4-10.4); Monocytes Absolute Auto 1.2 K/mm3 (0.1-0.6); Monocytes Percent Auto 10.2 % (2.6-8.5); Neutrophils Absolute Auto 8.2 K/mm3 (1.3-6.7); Neutrophils Percent Auto 71.2 % (45.5-73.1); Nucleated Red Blood Cells Absolute Auto 0.1 K/mm3 (0.0-0.012); Nucleated Red Blood Cells Perc 0.5 % (0.0-0.2); Platelet Count Result 380 k/mm3 (150-375); Red Blood Count 3.52 M/mm3 (4.6-6.20); Red Cell Distribution Width 20.7 % (11.5-14.5); White Blood Count 11.5 K/mm3 (4.5-10.0)
[2021-11-26 03:58] LABS: Alanine Aminotransferase 18 U/L (6-50); Albumin Level 3.2 g/dL (3.5-5.1); Alkaline Phosphatase 94 U/L (38-126); Anion Gap 5 mmol/L (8-16); Aspartate Amino Transferase 61 U/L (17-59); Bilirubin,Total 0.7 mg/dL (0.2-1.3); Blood Urea Nitrogen 27 mg/dL (9-20); Calcium 8.1 mg/dL (8.4-10.2); Carbon Dioxide 23 mmol/L (22-30); Chloride 113 mmol/L (98-107); Creatine Kinase 1042 U/L (55-170); Estimated CRCL calculation 54 ml/min; Estimated Glomerular Filt Rate 51; Glucose 103 mg/dL (65-110); Magnesium 2.2 mg/dL (1.6-2.3); Phosphorus 3.4 mg/dL (2.5-4.5); Potassium 4.3 mmol/L (3.4-5.0); Sodium 141 mmol/L (137-145)
[2021-11-26] MEDS: FENTANYL 2,500MCG/NS250ML(*CRX 2,500 MCG/250 ML BAG IV CONT (04:04)
[2021-11-26] MEDS: METOCLOPRAMIDE HCL 10 MG/10 ML SOLN UDC FEED TUBE ×4 (04:05→21:08)
[2021-11-26 04:40] LABS: Anisocytosis 2+ (NORMAL); Hypochromasia 2+ (NORMAL); Platelet Estimate Adequate (Adequate)
[2021-11-26 04:41] LABS: Stomatocytes 1+ (NORMAL)
[2021-11-26 05:56] LABS: Alveolar/Arterial O2 Gradient 87.1 mmHg; Base Excess ABG -5.1 mEq/l (+/-2.0); Fractional Inspired Oxygen 30 %; HCO3 ABG 21.3 mEq/l (22.0-26.0); Oxygen Content ABG 13.3 %vol (16.0-22.0); Oxygen Saturation ABG 92.9 % (95.0-100.0); Oxyhemoglobin 90.6 % THb (90.0-100.0); PCO2 ABG 45.7 mmHg (35.0-45.0); PO2 ABG 73.1 mmHg (80.0-100.0); PO2 FiO2 Ratio Arterial Blood 2.44 %; Total Hemoglobin 10.4 g/dL (12.0-18.0)
[2021-11-26 05:59] LABS: pH ABG 7.287 (7.350-7.450)
[2021-11-26 06:00] LABS: Device VENTILATOR; Modified Allen's Test Pass; Site Drawn RIGHT RADIAL
[2021-11-26 06:01] LABS: Arterial Blood Gas PEEP 8 cmH2O; Arterial Blood Gas Vent Mode CMV; Arterial Blood Gas Ventilator rate 24 /MIN
[2021-11-26 06:02] LABS: Arterial Blood Gas Tidal Volume 480 ml
[2021-11-26] MEDS: CENTRAL LINE FLUSH 10 ML IV PUSH ×3 (06:25→21:09)
[2021-11-26] MEDS: METOPROLOL TARTRATE 12.5 MG TABLET PO ×2 (08:31→21:09)
[2021-11-26] MEDS: ASPIRIN 325 MG TABLET FEED TUBE (08:31)
[2021-11-26] MEDS: MINERAL OIL/WHITE PETROLATUM OINTMENT 1 APPLIC EACH EYE ×2 (08:31→21:08)
[2021-11-26] MEDS: PANTOPRAZOLE SODIUM IV 40 MG VIAL IV PUSH ×2 (08:31→21:08)
[2021-11-26] MEDS: polyethylene glycoL 3350 17 GM POWD.PACK PO (08:31)
[2021-11-26] MEDS: SIMVASTATIN 10 MG TABLET PO (08:32)
--- NOTE | 2021-11-26 09:13 | WPDINTPN ---
Progress Note: A&P Assessment and Plan (1) Acute respiratory failure: Code(s): J96.00 - Acute respiratory failure, unspecified whether with hypoxia or hypercapnia Status: Acute Assessment and Plan: Acute Respiratory failure secondary to pulmonary edema and congestive heart failure, patient also has COPD baseline Patient was intubated in the field CT scan of the chest showed: 1. No pulmonary embolus. Sensitivity is mildly decreased by motion artifact. 2. Mild pulmonary edema. 3. Small pleural effusions. 4. Mild emphysema. 5. Cardiomegaly. 6. Cirrhosis of the liver. 11/24 tried PSV 10/06 weaning trial with patient quickly became tachycardic tachypneic with increased work of breathing desat. Trial was aborted and patient was placed on CMV and re sedated. Also went into AFib with RVR at that time. It took many hours for patient to stabilize post that I tried Precedex infusion but patient did not tolerate due to hypotension Continue full mechanical ventilation support to prevent hypoxemia/hypercarbia and end organ damage. Sedation holiday and weaning trial today ABG reviewed Chest x-ray reviewed Will repeat Lasix today Low tidal volume ventilation strategy to prevent volutrauma Bronchodilators (2) Non-STEMI (non-ST elevated myocardial infarction): Code(s): I21.4 - Non-ST elevation (NSTEMI) myocardial infarction Status: Acute Assessment and Plan: Per patient's pharmacy and patient's he has not taken any medication for months now. He does continue to smoke Records from [facility] states the patient has a stent in his right groin and has history of coronary disease with a stent in his heart but no further details Elevated troponin but EKG did not show any ST elevation but was abnormal Discussed with Cardiology and there is no plan for angiogram at this time. Okay with discontinuing heparin 11/25 Discontinue heparin drip due to drop in hemoglobin until hemoglobin is stable Continue aspirin and statin, start beta-raquel Request faxed to obtain records from [facility] and [facility] also but no records obtained till now Cardiology recommends conservative management this time but will evaluate for cardiac catheterization once records are obtained from outside hospital Echocardiogram reviewed 1. Left ventricular systolic function is moderately reduced, estimated at 35-40% with dyskinetic apex. ? 2. Left ventricular chamber dimension is mildly enlarged. ? 3. There is mildly increased left ventricular wall thickness. ? 4. There is no thrombus visualized in the left ventricle. ? 5. The left ventricular diastolic function is abnormal. ? 6. There is mild tricuspid valve regurgitation. ? 7. Mild pulmonary hypertension, estimated pulmonary arterial systolic pressure is 38 mmHg. ? 8. Technically difficult study with limited views with administration of definity contrast. (3) CHF (congestive heart failure): Qualifiers: Heart failure chronicity: unspecified Heart failure type: unspecified Qualified Code(s): I50.9 - Heart failure, unspecified Code(s): I50.9 - Heart failure, unspecified Status: Acute Assessment and Plan: CT scan shows pulmonary edema and pleural effusion Echocardiogram reviewed Resume Lasix today (4) Urinary tract infection: Qualifiers: Hematuria presence: with hematuria Urinary tract infection type: acute cystitis Qualified Code(s): N30.01 - Acute cystitis with hematuria Code(s): N39.0 - Urinary tract infection, site not specified Status: Acute Assessment and Plan: Blood and urine cultures done and are negative till now Continue IV Rocephin (5) Poor intravenous access: Code(s): Z78.9 - Other specified health status Status: Acute Assessment and Plan: Patient is on Lovenox hence PICC line was obtained as medical necessity as patient needed multiple infusions and sagastume
[2021-11-26 10:03] LABS: Alveolar/Arterial O2 Gradient 113.3 mmHg; Base Excess ABG -3.4 mEq/l (+/-2.0); Fractional Inspired Oxygen 35 %; HCO3 ABG 23.2 mEq/l (22.0-26.0); Oxygen Content ABG 13.3 %vol (16.0-22.0); Oxygen Saturation ABG 94.2 % (95.0-100.0); Oxyhemoglobin 92.3 % THb (90.0-100.0); PCO2 ABG 49.3 mmHg (35.0-45.0); PO2 ABG 78.9 mmHg (80.0-100.0); PO2 FiO2 Ratio Arterial Blood 2.25 %; Total Hemoglobin 10.2 g/dL (12.0-18.0)
[2021-11-26 10:05] LABS: Device VENTILATOR; Modified Allen's Test Pass; Site Drawn RIGHT RADIAL; pH ABG 7.291 (7.350-7.450)
[2021-11-26 10:06] LABS: Arterial Blood Gas PEEP 8 cmH2O; Arterial Blood Gas Pressure Support 5 cmH2O; Arterial Blood Gas Vent Mode SPONTANEOUS
[2021-11-26] MEDS: FUROSEMIDE INJ 40 MG/4 ML VIAL IV PUSH (11:11)
--- NOTE | 2021-11-26 16:31 | PM.IMPN ---
Progress Note: A&P Assessment and Plan (1) Acute respiratory failure: Code(s): J96.00 - Acute respiratory failure, unspecified whether with hypoxia or hypercapnia Status: Acute Assessment and Plan: Acute Respiratory failure secondary to pulmonary edema and congestive heart failure. ICU attempting to extubate as patient has improved. -Management per ICU (2) Non-STEMI (non-ST elevated myocardial infarction): Code(s): I21.4 - Non-ST elevation (NSTEMI) myocardial infarction Status: Acute Assessment and Plan: Appreciate recommendations from Cardiology. (3) CHF (congestive heart failure): Qualifiers: Heart failure chronicity: unspecified Heart failure type: unspecified Qualified Code(s): I50.9 - Heart failure, unspecified Code(s): I50.9 - Heart failure, unspecified Status: Acute Assessment and Plan: CT scan shows pulmonary edema and pleural effusion Elevated BNP Echo with EF 35-40% with dyskinetic apex. Mild pulmonary hypertension. No thrombus. Lasix given. -Appreciate recommendations from Cardiology (4) Urinary tract infection: Qualifiers: Hematuria presence: with hematuria Urinary tract infection type: acute cystitis Qualified Code(s): N30.01 - Acute cystitis with hematuria Code(s): N39.0 - Urinary tract infection, site not specified Status: Acute Assessment and Plan: Blood cultures with no growth. Urine culture w > 100,000 non uropathogenic gram positive organism. -Continue ceftriaxone (5) Poor intravenous access: Code(s): Z78.9 - Other specified health status Status: Acute Assessment and Plan: PICC line placed. Subjective Date/time seen: 11/26/21 16:31 Patient seen and examined this morning with family at bedside. Patient intubated and sedated. Exam Narrative: GENERAL: intubated, sedated HEENT: Normocephalic, atraumatic NECK: Supple CV: Normal S1, S2, RRR, No MRG RESP: Coarse breath sounds bilaterally EXTREMITIES: Bilateral AKA SKIN: warm, dry and intact. Many tattoos. NEURO: Intubated and sedated Objective Data Vital Signs Vital Signs: Vital Signs - 24 hr 11/25/21 18:00 11/25/21 18:00 11/25/21 16:47 Temperature 100.9 F H Pulse Rate 71 60 69 Respiratory Rate 24 H Blood Pressure 100/70 Pulse Oximetry 100 97 Oxygen Delivery Mechanical Ventilation Fraction of Inspired Oxygen 30 11/25/21 17:18 11/25/21 17:19 11/25/21 17:25 Temperature Pulse Rate 68 68 Respiratory Rate 24 H 24 H Blood Pressure 70/50 L Pulse Oximetry Oxygen Delivery Fraction of Inspired Oxygen 11/25/21 20:00 11/25/21 20:27 11/25/21 20:30 Temperature 100.8 F H Pulse Rate 68 68 68 Respiratory Rate 24 H 24 H Blood Pressure 94/65 L 97/63 L Pulse Oximetry 98 Oxygen Delivery Fraction of Inspired Oxygen 11/25/21 20:31 11/25/21 20:00 11/25/21 20:00 Temperature Pulse Rate 67 Respiratory Rate Blood Pressure Pulse Oximetry 98 Oxygen Delivery Mechanical Ventilation Mechanical Ventilation Fraction of Inspired Oxygen 30 30 30 11/25/21 23:18 11/25/21 22:00 11/25/21 23:26 Temperature Pulse Rate 69 69 61 Respiratory Rate 24 H Blood Pressure 108/72 Pulse Oximetry 97 Oxygen Delivery Mechanical Ventilation Fraction of Inspired Oxygen 30 11/26/21 00:00 11/26/21 00:00 11/26/21 00:19 Temperature Pulse Rate 71 64 68 Respiratory Rate 24 H Blood Pressure 104/69 106/68 Pulse Oximetry Oxygen Delivery Fraction of Inspired Oxygen 11/25/21 22:00 11/26/21 00:00 11/26/21 00:00 Temperature 100.6 F H Pulse Rate 65 69 Respiratory Rate 24 H 24 H Blood Pressure 108/72 104/69 Pulse Oximetry 97 97 Oxygen Delivery Mechanical Ventilation Fraction of Inspired Oxygen 30 11/26/21 00:00 11/25/21 20:00 11/25/21 22:00 Temperature Pulse Rate 66 68 Respiratory Rate [place]
[2021-11-26 17:34] LABS: Glucose Point of Care 121 mg/dl (65-105)
[2021-11-26] MEDS: MIDAZOLAM 100MG/NS 100ML(*CRX) 100 MG/100 ML BAG IV CONT (18:35)
[2021-11-27] VITALS (23 sets, daily range): BP systolic 84–122; BP diastolic 54–74; PULSE 65–115; RESP 24–27; TEMP 37–37.6; O2SAT 90–98
[2021-11-27] MEDS: METOCLOPRAMIDE HCL 10 MG/10 ML SOLN UDC FEED TUBE ×4 (05:14→20:26)
[2021-11-27] MEDS: CENTRAL LINE FLUSH 10 ML IV PUSH ×3 (05:14→20:26)
[2021-11-27 05:16] LABS: Alanine Aminotransferase 17 U/L (6-50); Albumin Level 3.2 g/dL (3.5-5.1); Alkaline Phosphatase 103 U/L (38-126); Anion Gap 7 mmol/L (8-16); Aspartate Amino Transferase 44 U/L (17-59); Bilirubin,Total 0.6 mg/dL (0.2-1.3); Blood Urea Nitrogen 30 mg/dL (9-20); Calcium 8.3 mg/dL (8.4-10.2); Carbon Dioxide 23 mmol/L (22-30); Chloride 113 mmol/L (98-107); Creatine Kinase 581 U/L (55-170); Estimated CRCL calculation 63 ml/min; Estimated Glomerular Filt Rate > 60; Glucose 118 mg/dL (65-110); Magnesium 2.2 mg/dL (1.6-2.3); Phosphorus 3.1 mg/dL (2.5-4.5); Potassium 4.1 mmol/L (3.4-5.0); Sodium 143 mmol/L (137-145)
[2021-11-27 05:41] LABS: Alveolar/Arterial O2 Gradient 88.3 mmHg; Base Excess ABG 1.2 mEq/l (+/-2.0); Carboxyhemoglobin 0.3 % THb (0-2.0); Fractional Inspired Oxygen 30 %; HCO3 ABG 25.7 mEq/l (22.0-26.0); Methemoglobin ABG 0.5 %THb (0-1.5); Oxygen Content ABG 12.2 %vol (16.0-22.0); Oxygen Saturation ABG 95.8 % (95.0-100.0); Oxyhemoglobin 93.8 % THb (90.0-100.0); PCO2 ABG 40.2 mmHg (35.0-45.0); PO2 ABG 78.4 mmHg (80.0-100.0); PO2 FiO2 Ratio Arterial Blood 2.61 %; Reduced Hemoglobin 5.4 %THb (0-5.0); Total Hemoglobin 9.2 g/dL (12.0-18.0); pH ABG 7.423 (7.350-7.450)
[2021-11-27 05:50] LABS: Device VENTILATOR; Modified Allen's Test Pass; Site Drawn RIGHT RADIAL
[2021-11-27 05:51] LABS: Arterial Blood Gas PEEP 8 cmH2O; Arterial Blood Gas Tidal Volume 500 ml; Arterial Blood Gas Vent Mode CMV; Arterial Blood Gas Ventilator rate 24 /MIN
[2021-11-27 06:40] LABS: Basophils Absolute Auto 0.1 K/mm3 (0.0-0.1); Basophils Percent Auto 0.6 % (0.2-1.2); Eosinophils Absolute Auto 0.5 K/mm3 (0-0.3); Eosinophils Percent Auto 3.7 % (0-4.4); Hematocrit 29.7 % (42.0-52.0); Hemoglobin 8.1 g/dL (14.0-18.0); Immature Granulocyte Absolute 0.11 K/mm3 (0.00-0.031); Immature Granulocyte Percent A 0.8 % (0-0.5); Lymphocytes Percent Auto 10.7 % (18.3-44.2); Mean Corpuscular HGB Conc 27.3 g/dl (32-36); Mean Corpuscular Hemoglobin 21.7 pg (26-34); Mean Corpuscular Volume 79.4 fl (80-100); Mean Platelet Volume 9.8 fl (7.4-10.4); Monocytes Absolute Auto 1.1 K/mm3 (0.1-0.6); Monocytes Percent Auto 8.5 % (2.6-8.5); Neutrophils Absolute Auto 9.9 K/mm3 (1.3-6.7); Neutrophils Percent Auto 75.7 % (45.5-73.1); Nucleated Red Blood Cells Absolute Auto 0.1 K/mm3 (0.0-0.012); Nucleated Red Blood Cells Perc 0.6 % (0.0-0.2); Platelet Count Result 403 k/mm3 (150-375); Red Blood Count 3.74 M/mm3 (4.6-6.20); Red Cell Distribution Width 21.3 % (11.5-14.5); White Blood Count 13.1 K/mm3 (4.5-10.0)
[2021-11-27 07:08] LABS: Platelet Estimate Adequate (Adequate)
[2021-11-27 07:09] LABS: Anisocytosis 2+ (NORMAL); Hypochromasia 2+ (NORMAL); Ovalocytes 1+ (NORMAL)
--- NOTE | 2021-11-27 08:04 | PM.PNCARD ---
Progress Note: A&P Assessment and Plan (1) Non-STEMI (non-ST elevated myocardial infarction): Code(s): I21.4 - Non-ST elevation (NSTEMI) myocardial infarction Status: Acute (2) CHF (congestive heart failure): Qualifiers: Heart failure chronicity: unspecified Heart failure type: unspecified Qualified Code(s): I50.9 - Heart failure, unspecified Code(s): I50.9 - Heart failure, unspecified Status: Acute Plan Will cautiously add low-dose losartan to his current regimen because of the LV systolic dysfunction. Continue plans for conservative medical treatment at this time. Tawanda Snyder MD [facility] Subjective Date/time seen: Date of service: 11/27/21 08:04 Interval history: Follow-up visit in this 66-year-old man with: Congestive heart failure probable acute coronary syndrome and ischemic LV systolic dysfunction. Patient with no previous records here. Still in the ICU on mechanical ventilator support. There are no significant records available on this patient's care but apparently family has indicated he has a history of a stent in his lower extremity prior to 1 of his amputations as well as a coronary stent the details of that are not available to us. Echocardiogram here demonstrates moderate LV systolic dysfunction. Review of Systems Review of Systems: ROS unobtainable: Yes unobtainable due to endotracheal tube Exam Const: Other: Sedated intubated white male with multiple tattoos and bilateral above the knee amputation HENMT: Mouth: Yes moist mucous membranes Eyes: Sclera: sclerae normal Pupils: Equal, round and reactive pupils present Neck: Neck: supple and no JVD Resp: Other: Breath sounds on the ventilator are essentially clear Cardio: Rate: regular rate Rhythm: regular rhythm Other: PMI is not palpable, no audible murmur GI: GI Palp: Yes Soft to palpation Auscultation: normal bowel sounds Skin: Wounds: no wounds Extrem: Other: Bilateral AKA Objective Data Vital Signs Vital Signs: Vital Signs - 24 hr 11/26/21 08:31 11/26/21 10:00 11/26/21 10:00 Temperature Pulse Rate 82 79 79 Respiratory Rate 19 Blood Pressure 99/65 L Pulse Oximetry 97 Oxygen Delivery Fraction of Inspired Oxygen 11/26/21 11:05 11/26/21 12:00 11/26/21 12:00 Temperature Pulse Rate 117 H 76 76 Respiratory Rate 24 H Blood Pressure Pulse Oximetry 98 98 Oxygen Delivery Mechanical Ventilation Mechanical Ventilation Fraction of Inspired Oxygen 35 30 11/26/21 12:00 11/26/21 12:00 11/26/21 14:05 Temperature 37.0 C Pulse Rate 76 75 Respiratory Rate 24 H Blood Pressure 96/66 L Pulse Oximetry 98 99 Oxygen Delivery Mechanical Ventilation Fraction of Inspired Oxygen 30 35 11/26/21 16:59 11/26/21 18:35 11/26/21 14:00 Temperature Pulse Rate 81 84 86 Respiratory Rate 24 H Blood Pressure Pulse Oximetry 99 Oxygen Delivery Mechanical Ventilation Fraction of Inspired Oxygen 30 11/26/21 14:00 11/26/21 16:00 11/26/21 18:08 Temperature Pulse Rate 86 81 77 Respiratory Rate 20 24 H 24 H Blood Pressure 125/62 Pulse Oximetry 96 99 Oxygen Delivery Mechanical Ventilation Fraction of Inspired Oxygen 30 11/26/21 16:00 11/26/21 16:00 11/26/21 16:00 Temperature 36.7 C Pulse Rate 81 81 Respiratory Rate 24 H Blood Pressure 100/70 Pulse Oximetry 99 Oxygen Delivery Fraction of Inspired Oxygen 30 11/26/21 18:00 11/26/21 18:00 11/26/21 21:09 Temperature Pulse Rate 72 72 83 Respiratory Rate 24 H Blood Pressure 88/66 L Pulse Oximetry 96 Oxygen Delivery Fraction of Inspired Oxygen 11/26/21 20:00 11/26/21 20:00 11/26/21 20:00 Temperature 36.9 C Pulse Rate 77 77 Respiratory Rate 24 H 24 H Blood Pressure 86/62 L Pulse Oximetry 97 Oxygen Delivery Mechanical Ventilation Fraction of Inspired Oxygen 30 11/26/21 20:00 11/26/21 20:00 11/26/21 22:00
[2021-11-27] MEDS: LOSARTAN POTASSIUM 12.5 MG TABLET PO (09:50)
[2021-11-27] MEDS: METOPROLOL TARTRATE 12.5 MG TABLET PO ×2 (09:50→20:26)
[2021-11-27] MEDS: SIMVASTATIN 10 MG TABLET PO (09:51)
[2021-11-27] MEDS: PANTOPRAZOLE SODIUM IV 40 MG VIAL IV PUSH ×2 (09:51→20:26)
[2021-11-27] MEDS: polyethylene glycoL 3350 17 GM POWD.PACK PO (09:51)
[2021-11-27] MEDS: MINERAL OIL/WHITE PETROLATUM OINTMENT 1 APPLIC EACH EYE ×2 (09:51→20:25)
[2021-11-27] MEDS: ASPIRIN 325 MG TABLET FEED TUBE (09:51)
[2021-11-27] MEDS: FUROSEMIDE INJ 40 MG/4 ML VIAL IV PUSH (10:01)
[2021-11-27] MEDS: ENOXAPARIN 40 MG/0.4 ML SYRINGE SUB-Q (10:03)
[2021-11-27 11:35] LABS: Glucose Point of Care 137 mg/dl (65-105)
[2021-11-27 11:36] LABS: Glucose Point of Care 110 mg/dl (65-105)
--- NOTE | 2021-11-27 11:36 | WPDINTPN ---
Progress Note: A&P Assessment and Plan (1) Acute respiratory failure: Code(s): J96.00 - Acute respiratory failure, unspecified whether with hypoxia or hypercapnia Status: Acute Assessment and Plan: Acute Respiratory failure secondary to pulmonary edema and congestive heart failure, patient also has COPD baseline Patient was intubated in the field CT scan of the chest showed: 1. No pulmonary embolus. Sensitivity is mildly decreased by motion artifact. 2. Mild pulmonary edema. 3. Small pleural effusions. 4. Mild emphysema. 5. Cardiomegaly. 6. Cirrhosis of the liver. 11/24 tried PSV 10/06 weaning trial with patient quickly became tachycardic tachypneic with increased work of breathing desat. Trial was aborted and patient was placed on CMV and re sedated. Also went into AFib with RVR at that time. It took many hours for patient to stabilize post that I tried Precedex infusion but patient did not tolerate due to hypotension and bradycardia 11/26 failed weaning trial due to high RSBI and work of breathing Continue full mechanical ventilation support to prevent hypoxemia/hypercarbia and end organ damage. Will do Sedation holiday and weaning trial today ABG reviewed Chest x-ray reviewed -advance ET tube by 2 cm Will repeat Lasix today Low tidal volume ventilation strategy to prevent volutrauma Bronchodilators (2) Non-STEMI (non-ST elevated myocardial infarction): Code(s): I21.4 - Non-ST elevation (NSTEMI) myocardial infarction Status: Acute Assessment and Plan: Per patient's pharmacy and patient's he has not taken any medication for months now. He does continue to smoke Records from [facility] states the patient has a stent in his right groin and has history of coronary disease with a stent in his heart but no further details Elevated troponin but EKG did not show any ST elevation but was abnormal Discussed with Cardiology and there is no plan for angiogram at this time. Okay with discontinuing heparin 11/25 Discontinue heparin drip due to drop in hemoglobin until hemoglobin is stable Continue aspirin and statin, beta-raquel and low-dose Cozaar Request faxed to obtain records from [facility] and [facility] also but no records obtained till now Cardiology recommends conservative management this time but will evaluate for cardiac catheterization once records are obtained from outside hospital Echocardiogram reviewed 1. Left ventricular systolic function is moderately reduced, estimated at 35-40% with dyskinetic apex. ? 2. Left ventricular chamber dimension is mildly enlarged. ? 3. There is mildly increased left ventricular wall thickness. ? 4. There is no thrombus visualized in the left ventricle. ? 5. The left ventricular diastolic function is abnormal. ? 6. There is mild tricuspid valve regurgitation. ? 7. Mild pulmonary hypertension, estimated pulmonary arterial systolic pressure is 38 mmHg. ? 8. Technically difficult study with limited views with administration of definity contrast. (3) CHF (congestive heart failure): Qualifiers: Heart failure chronicity: unspecified Heart failure type: unspecified Qualified Code(s): I50.9 - Heart failure, unspecified Code(s): I50.9 - Heart failure, unspecified Status: Acute Assessment and Plan: CT scan shows pulmonary edema and pleural effusion Echocardiogram reviewed Resume Lasix today (4) Urinary tract infection: Qualifiers: Hematuria presence: with hematuria Urinary tract infection type: acute cystitis Qualified Code(s): N30.01 - Acute cystitis with hematuria Code(s): N39.0 - Urinary tract infection, site not specified Status: Acute Assessment and Plan: Blood and urine cultures done and are negative till now Continue IV Rocephin (5) Poor intravenous access: Code(s): Z78.9 - Other specified health status Status: Acute Assessment
[2021-11-27] MEDS: MIDAZOLAM HCL (*CRX) 2 MG/2 ML VIAL IV PUSH (12:14)
[2021-11-27 12:21] LABS: Glucose Point of Care 193 mg/dl (65-105)
[2021-11-27 14:41] LABS: Glucose Point of Care 146 mg/dl (65-105)
[2021-11-27 17:57] LABS: Glucose Point of Care 129 mg/dl (65-105)
--- NOTE | 2021-11-27 18:45 | PM.IMPN ---
Progress Note: A&P Assessment and Plan (1) Acute respiratory failure: Code(s): J96.00 - Acute respiratory failure, unspecified whether with hypoxia or hypercapnia Status: Acute Assessment and Plan: Acute Respiratory failure secondary to pulmonary edema and congestive heart failure. ICU attempting to extubate as patient has improved. -Management per ICU (2) Non-STEMI (non-ST elevated myocardial infarction): Code(s): I21.4 - Non-ST elevation (NSTEMI) myocardial infarction Status: Acute Assessment and Plan: On ASA, metoprolol and losartan. Continue. Appreciate recommendations from Cardiology. (3) CHF (congestive heart failure): Qualifiers: Heart failure chronicity: unspecified Heart failure type: unspecified Qualified Code(s): I50.9 - Heart failure, unspecified Code(s): I50.9 - Heart failure, unspecified Status: Acute Assessment and Plan: CT scan shows pulmonary edema and pleural effusion. Elevated BNP. Echo with EF 35-40% with dyskinetic apex. Mild pulmonary hypertension. No thrombus. Lasix given. -Appreciate recommendations from Cardiology (4) Urinary tract infection: Qualifiers: Hematuria presence: with hematuria Urinary tract infection type: acute cystitis Qualified Code(s): N30.01 - Acute cystitis with hematuria Code(s): N39.0 - Urinary tract infection, site not specified Status: Acute Assessment and Plan: Blood cultures with no growth. Urine culture w > 100,000 non uropathogenic gram positive organism. -Continue ceftriaxone (5) Poor intravenous access: Code(s): Z78.9 - Other specified health status Status: Acute Assessment and Plan: PICC line placed. Subjective Date/time seen: 11/27/21 18:45 Patient intubated and sedated. Per nursing patient sedation is being held to attempt extubation. This was also attempted yesterday. Review of Systems Review of Systems: ROS unobtainable: Yes unobtainable due to endotracheal tube Exam Narrative: GENERAL: intubated, sedated HEENT: Normocephalic, atraumatic NECK: Supple CV: Normal S1, S2, RRR, No MRG RESP: Coarse breath sounds bilaterally EXTREMITIES: Bilateral AKA SKIN: warm, dry and intact. Many tattoos. NEURO: Intubated and sedated Objective Data Vital Signs Vital Signs: Vital Signs - 24 hr 11/26/21 21:09 11/26/21 20:00 11/26/21 20:00 Temperature 98.5 F Pulse Rate 83 77 Respiratory Rate 24 H Blood Pressure 86/62 L Pulse Oximetry 97 Oxygen Delivery Mechanical Ventilation Fraction of Inspired Oxygen 30 11/26/21 20:00 11/26/21 20:00 11/26/21 20:00 Temperature Pulse Rate 77 75 Respiratory Rate 24 H Blood Pressure Pulse Oximetry Oxygen Delivery Fraction of Inspired Oxygen 30 11/26/21 22:00 11/26/21 22:00 11/26/21 20:30 Temperature Pulse Rate 77 77 78 Respiratory Rate 24 H Blood Pressure 100/64 Pulse Oximetry 94 97 Oxygen Delivery Mechanical Ventilation Fraction of Inspired Oxygen 30 11/26/21 23:00 11/27/21 00:17 11/27/21 00:00 Temperature Pulse Rate 74 84 Respiratory Rate 24 H Blood Pressure Pulse Oximetry 97 Oxygen Delivery Mechanical Ventilation Mechanical Ventilation Fraction of Inspired Oxygen 30 30 11/27/21 00:00 11/27/21 00:00 11/27/21 00:00 Temperature 99.0 F Pulse Rate 87 81 Respiratory Rate 24 H Blood Pressure 105/73 Pulse Oximetry 96 Oxygen Delivery Fraction of Inspired Oxygen 30 11/27/21 02:00 11/27/21 02:00 11/27/21 02:00 Temperature Pulse Rate 81 76 86 Respiratory Rate 24 H Blood Pressure 109/67 Pulse Oximetry 95 95 Oxygen Delivery Mechanical Ventilation Fraction of Inspired Oxygen 30 11/27/21 05:14 11/27/21 04:00 11/27/21 04:00 Temperature 99.5 F Pulse Rate 93 86 Respiratory Rate 24 H 24 H Blood Pressure 118/68 Pulse Oximetry 98 Oxygen Delivery Me
[2021-11-27 23:43] LABS: Glucose Point of Care 117 mg/dl (65-105)
[2021-11-28] VITALS (26 sets, daily range): BP systolic 82–133; BP diastolic 52–79; PULSE 60–103; RESP 24; TEMP 37.1–37.7; O2SAT 94–98
[2021-11-28] MEDS: METOCLOPRAMIDE HCL 10 MG/10 ML SOLN UDC FEED TUBE ×4 (03:14→20:28)
[2021-11-28 04:29] LABS: Basophils Absolute Auto 0.1 K/mm3 (0.0-0.1); Basophils Percent Auto 0.4 % (0.2-1.2); Eosinophils Absolute Auto 0.5 K/mm3 (0-0.3); Eosinophils Percent Auto 3.8 % (0-4.4); Hematocrit 28.6 % (42.0-52.0); Hemoglobin 8.1 g/dL (14.0-18.0); Immature Granulocyte Absolute 0.16 K/mm3 (0.00-0.031); Immature Granulocyte Percent A 1.3 % (0-0.5); Lymphocytes Absolute Auto 1.75 K/mm3 (0.9-3.2); Lymphocytes Percent Auto 14.7 % (18.3-44.2); Mean Corpuscular HGB Conc 28.3 g/dl (32-36); Mean Corpuscular Hemoglobin 21.9 pg (26-34); Mean Corpuscular Volume 77.3 fl (80-100); Mean Platelet Volume 9.6 fl (7.4-10.4); Monocytes Absolute Auto 1.2 K/mm3 (0.1-0.6); Monocytes Percent Auto 9.9 % (2.6-8.5); Neutrophils Absolute Auto 8.3 K/mm3 (1.3-6.7); Neutrophils Percent Auto 69.9 % (45.5-73.1); Nucleated Red Blood Cells Absolute Auto 0.1 K/mm3 (0.0-0.012); Nucleated Red Blood Cells Perc 0.5 % (0.0-0.2); Platelet Count Result 420 k/mm3 (150-375); Red Cell Distribution Width 21.8 % (11.5-14.5); White Blood Count 11.9 K/mm3 (4.5-10.0)
[2021-11-28 04:40] LABS: Alanine Aminotransferase 16 U/L (6-50); Albumin Level 3.3 g/dL (3.5-5.1); Alkaline Phosphatase 118 U/L (38-126); Anion Gap 6 mmol/L (8-16); Aspartate Amino Transferase 45 U/L (17-59); Bilirubin,Total 0.6 mg/dL (0.2-1.3); Blood Urea Nitrogen 36 mg/dL (9-20); Calcium 8.6 mg/dL (8.4-10.2); Carbon Dioxide 28 mmol/L (22-30); Chloride 112 mmol/L (98-107); Creatine Kinase 256 U/L (55-170); Estimated CRCL calculation 53 ml/min; Estimated Glomerular Filt Rate 51; Glucose 103 mg/dL (65-110); Magnesium 2.4 mg/dL (1.6-2.3); Phosphorus 3.4 mg/dL (2.5-4.5); Potassium 3.5 mmol/L (3.4-5.0); Sodium 146 mmol/L (137-145)
[2021-11-28 04:50] LABS: Macrocytosis 1+ (NORMAL); Platelet Estimate Adequate (Adequate)
[2021-11-28 04:57] LABS: Alveolar/Arterial O2 Gradient 95.2 mmHg; Carboxyhemoglobin 0.3 % THb (0-2.0); Fractional Inspired Oxygen 30 %; HCO3 ABG 25.1 mEq/l (22.0-26.0); Methemoglobin ABG 0.3 %THb (0-1.5); Oxygen Content ABG 14.1 %vol (16.0-22.0); Oxygen Saturation ABG 95.5 % (95.0-100.0); Oxyhemoglobin 93.4 % THb (90.0-100.0); PCO2 ABG 37.7 mmHg (35.0-45.0); PO2 ABG 74.4 mmHg (80.0-100.0); PO2 FiO2 Ratio Arterial Blood 2.48 %; Total Hemoglobin 10.7 g/dL (12.0-18.0); pH ABG 7.441 (7.350-7.450)
[2021-11-28 05:02] LABS: Device VENTILATOR; Site Drawn RIGHT RADIAL
[2021-11-28 05:03] LABS: Arterial Blood Gas Vent Mode CMV; Arterial Blood Gas Ventilator rate 24 /MIN
[2021-11-28 05:04] LABS: Arterial Blood Gas PEEP 8 cmH2O; Arterial Blood Gas Tidal Volume 500 ml
[2021-11-28] MEDS: CENTRAL LINE FLUSH 10 ML IV PUSH ×3 (05:26→20:28)
--- NOTE | 2021-11-28 08:31 | WPDINTPN ---
Progress Note: A&P Assessment and Plan (1) Acute respiratory failure: Code(s): J96.00 - Acute respiratory failure, unspecified whether with hypoxia or hypercapnia Status: Acute Assessment and Plan: Acute Respiratory failure secondary to pulmonary edema and congestive heart failure, patient also has COPD baseline Patient was intubated in the field CT scan of the chest showed: 1. No pulmonary embolus. Sensitivity is mildly decreased by motion artifact. 2. Mild pulmonary edema. 3. Small pleural effusions. 4. Mild emphysema. 5. Cardiomegaly. 6. Cirrhosis of the liver. 11/24 tried PSV 10/06 weaning trial with patient quickly became tachycardic tachypneic with increased work of breathing desat. Trial was aborted and patient was placed on CMV and re sedated. Also went into AFib with RVR at that time. It took many hours for patient to stabilize post that I tried Precedex infusion but patient did not tolerate due to hypotension and bradycardia 11/26 failed weaning trial due to high RSBI and work of breathing 11/28 tried PSV of 10/8 and patient quickly failed due to high RSBI and work of breathing Continue full mechanical ventilation support to prevent hypoxemia/hypercarbia and end organ damage. ABG reviewed Chest x-ray reviewed pending Will repeat Lasix today Low tidal volume ventilation strategy to prevent volutrauma Bronchodilators (2) Non-STEMI (non-ST elevated myocardial infarction): Code(s): I21.4 - Non-ST elevation (NSTEMI) myocardial infarction Status: Acute Assessment and Plan: Per patient's pharmacy and patient's he has not taken any medication for months now. He does continue to smoke Records from [facility] states the patient has a stent in his right groin and has history of coronary disease with a stent in his heart but no further details Elevated troponin but EKG did not show any ST elevation but was abnormal Cardiology following there is no plan for angiogram at this time. Okay with discontinuing heparin 11/25 Discontinued heparin drip due to drop in hemoglobin until hemoglobin is stable Continue aspirin and statin, beta-raquel and low-dose Cozaar Request faxed to obtain records from [facility] and [facility] also but no records obtained till now. Will resend requested Cardiology recommends conservative management this time but will evaluate for cardiac catheterization once records are obtained from outside hospital Echocardiogram reviewed 1. Left ventricular systolic function is moderately reduced, estimated at 35-40% with dyskinetic apex. ? 2. Left ventricular chamber dimension is mildly enlarged. ? 3. There is mildly increased left ventricular wall thickness. ? 4. There is no thrombus visualized in the left ventricle. ? 5. The left ventricular diastolic function is abnormal. ? 6. There is mild tricuspid valve regurgitation. ? 7. Mild pulmonary hypertension, estimated pulmonary arterial systolic pressure is 38 mmHg. ? 8. Technically difficult study with limited views with administration of definity contrast. (3) CHF (congestive heart failure): Qualifiers: Heart failure chronicity: unspecified Heart failure type: unspecified Qualified Code(s): I50.9 - Heart failure, unspecified Code(s): I50.9 - Heart failure, unspecified Status: Acute Assessment and Plan: CT scan shows pulmonary edema and pleural effusion Echocardiogram reviewed Resume Lasix today (4) Urinary tract infection: Qualifiers: Hematuria presence: with hematuria Urinary tract infection type: acute cystitis Qualified Code(s): N30.01 - Acute cystitis with hematuria Code(s): N39.0 - Urinary tract infection, site not specified Status: Acute Assessment and Plan: Blood and urine cultures done and are negative till now Continue IV Rocephin (5) Poor intravenous access: Code(s): Z78.9 - Other specified health status
[2021-11-28] MEDS: POTASSIUM CHLORIDE 20 MEQ PACKET (FOR LIQUID) 40 MEQ FEED TUBE (08:51)
[2021-11-28] MEDS: ENOXAPARIN 40 MG/0.4 ML SYRINGE SUB-Q (08:53)
[2021-11-28] MEDS: ASPIRIN 325 MG TABLET FEED TUBE (08:53)
[2021-11-28] MEDS: polyethylene glycoL 3350 17 GM POWD.PACK PO (08:54)
[2021-11-28] MEDS: MINERAL OIL/WHITE PETROLATUM OINTMENT 1 APPLIC EACH EYE ×2 (08:54→20:28)
[2021-11-28] MEDS: METOPROLOL TARTRATE 12.5 MG TABLET PO (08:54)
[2021-11-28] MEDS: SIMVASTATIN 10 MG TABLET PO (08:54)
[2021-11-28] MEDS: PANTOPRAZOLE SODIUM IV 40 MG VIAL IV PUSH ×2 (08:54→20:28)
[2021-11-28] MEDS: LOSARTAN POTASSIUM 12.5 MG TABLET PO (08:54)
[2021-11-28] MEDS: FENTANYL 2,500MCG/NS250ML(*CRX 2,500 MCG/250 ML BAG IV CONT (08:58)
[2021-11-28] MEDS: FUROSEMIDE INJ 40 MG/4 ML VIAL IV PUSH (09:00)
[2021-11-28] MEDS: MIDAZOLAM HCL (*CRX) 2 MG/2 ML VIAL IV PUSH (09:31)
--- NOTE | 2021-11-28 10:58 | PCNFU ---
Nutrition Follow-Up Complete: Inadequate Oral Intake as related to mechanical ventilation as evidenced by NPO Goal: Meet estimated nutritional needs Patient is progressing towards goal. Pt current nutrition is Vital AF 1.2 at 60 ml/hr over 22 hours. Last recorded weight is 93.1 kg, down from 94.6 kg from admit. Bowel Motility: smear reported Labs Reviewed:Mg 2.4.Na 146, GFR 51, BUN 36, Cr 1.4,Glu 36,Hgb 8.1,Hct 28.6 Meds Noted:Fentanyl, Versed, Rocephin, Cozaar, Reglan, Lopressor,Miralax,Zocor. Skin:Macerated noted on buttock. Additional Notes: Patient remains on mechanical vent and tube feedings of Vital AF 1.2 at 60 ml/hr over 22 hours. Patient is tolerating tube feedings at this time. Free water flush increased to 50 ml q 4 hours. Monitoring: Following daily in ICU rounds and reassessing every Sunday and Sunday.
--- NOTE | 2021-11-28 12:08 | PM.IMPN ---
Progress Note: A&P Assessment and Plan (1) Acute respiratory failure: Code(s): J96.00 - Acute respiratory failure, unspecified whether with hypoxia or hypercapnia Status: Acute Assessment and Plan: Acute Respiratory failure secondary to pulmonary edema from CHF, NSTEMI and possibly from COPD. Patient was intubated in the field. CT scan of the chest showed no PE and mild pulmonary edema. He is not tolerating weaning trials. Lasix once with good diuresis. Bronchodilators prn. Wean off vent as toelrated. (2) Non-STEMI (non-ST elevated myocardial infarction): Code(s): I21.4 - Non-ST elevation (NSTEMI) myocardial infarction Status: Acute Assessment and Plan: Per patient's pharmacy and patient's he has not taken any medication for months now. He does continue to smoke. Old Records states the patient has a stent in his right groin and has history of CAD with heart stent placed. Elevated troponins. EKG was abnormal but not showing acute elevation. Echo showing she EF 35-40% with dyskinetic apex and abnormal diastolic function. Cardiology following but there is no plan for angiogram at this time. Heparin discontinued. Continue aspirin, statin, beta-raquel and Cozaar. (3) CHF (congestive heart failure): Qualifiers: Heart failure chronicity: unspecified Heart failure type: unspecified Qualified Code(s): I50.9 - Heart failure, unspecified Code(s): I50.9 - Heart failure, unspecified Status: Acute Assessment and Plan: CT scan shows pulmonary edema and pleural effusion. Echo as mentioned above. Continue intermittent Lasix dosing. (4) Urinary tract infection: Qualifiers: Hematuria presence: with hematuria Urinary tract infection type: acute cystitis Qualified Code(s): N30.01 - Acute cystitis with hematuria Code(s): N39.0 - Urinary tract infection, site not specified Status: Acute Assessment and Plan: UA noted. Urine culture She is having growing non uropathogenic organisms.Blood cultures no growth to date. (5) Atrial fibrillation with RVR: Code(s): I48.91 - Unspecified atrial fibrillation Status: Acute Assessment and Plan: Patient went into atrial fibrillation with RVR. Heparin discontinued due to anemia. He remains on aspirin. He has intermittent atrial fibrillation but heart rate control with Lopressor. Echo as mentioned above. Check TSH. Cardiology following. Appreciate their input. (6) KIMBERLY (acute kidney injury): Code(s): N17.9 - Acute kidney failure, unspecified Status: Acute Assessment and Plan: patient with probable mild CKD with creatinine running 1.2-1.4 range. No clear baseline but creatinine stable overall and probably chronically elevated. Will follow. (7) Anemia: Code(s): D64.9 - Anemia, unspecified Status: Acute Assessment and Plan: Acute on chronic anemia. Hgb 7-8 range on admission but Hgb did drop to 6.9. No obvious sign of bleeding. PPI changed to IV q.12 hours. Heparin infusion was discontinued. Patient was transfused 1 unit of PRBC on 11/25. Continue to monitor hemoglobin which is remained stable. able to resume Lovenox Plan DVT prophylaxis: Lovenox code status: Full Subjective Date/time seen: 11/28/21 12:08 Interval history: 66yo male with PAD, CAD and COPD here for respiratory failure. Assuming care. Chart reviewed. Patient becomes hypertensive tachycardic when trying to wean off sedation. He did receive Lasix 40 mg once with good diuresis. Review of Systems Review of Systems: ROS unobtainable: Yes unobtainable due to endotracheal tube Exam Narrative: AF 98.8 133/79 89 24 97% MV Gen - intubated and sedated HEENT - ETT and OG secured Chest - coarse BS anteriorly CV - Irregularly irregular. S1-S2. Telemetry showing intermittent AFib and a flutter Abd - soft, ND, +BS - Gray secured draining sadia
[2021-11-28] MEDS: MIDAZOLAM 100MG/NS 100ML(*CRX) 100 MG/100 ML BAG IV CONT (12:12)
[2021-11-28 12:17] LABS: Glucose Point of Care 120 mg/dl (65-105)
[2021-11-28 18:27] LABS: Glucose Point of Care 141 mg/dl (65-105)
[2021-11-28 23:40] LABS: Glucose Point of Care 140 mg/dl (65-105)
--- NOTE | 2021-11-28 23:40 | PC.NURSE ---
2100 Dr. Webb informed of blood pressure/ heart rate. orders received to hold 2100 dose of metoprolol
[2021-11-29] VITALS (26 sets, daily range): BP systolic 85–100; BP diastolic 59–70; PULSE 73–114; RESP 21–26; TEMP 37.1–37.9; O2SAT 93–99
[2021-11-29] MEDS: METOCLOPRAMIDE HCL 10 MG/10 ML SOLN UDC FEED TUBE ×4 (04:08→20:01)
[2021-11-29 04:29] LABS: Hematocrit 30.9 % (42.0-52.0); Hemoglobin 8.5 g/dL (14.0-18.0); Mean Corpuscular HGB Conc 27.5 g/dl (32-36); Mean Corpuscular Hemoglobin 21.7 pg (26-34); Mean Platelet Volume 9.8 fl (7.4-10.4); Platelet Count Result 429 k/mm3 (150-375); Red Blood Count 3.91 M/mm3 (4.6-6.20); Red Cell Distribution Width 22.8 % (11.5-14.5); White Blood Count 12.2 K/mm3 (4.5-10.0)
[2021-11-29 04:44] LABS: Alanine Aminotransferase 15 U/L (6-50); Albumin Level 3.5 g/dL (3.5-5.1); Alkaline Phosphatase 130 U/L (38-126); Anion Gap 5 mmol/L (8-16); Aspartate Amino Transferase 39 U/L (17-59); Bilirubin,Total 0.7 mg/dL (0.2-1.3); Blood Urea Nitrogen 49 mg/dL (9-20); Calcium 8.6 mg/dL (8.4-10.2); Carbon Dioxide 27 mmol/L (22-30); Chloride 115 mmol/L (98-107); Estimated CRCL calculation 50 ml/min; Estimated Glomerular Filt Rate 47; Glucose 138 mg/dL (65-110); Magnesium 2.5 mg/dL (1.6-2.3); Potassium 5.4 mmol/L (3.4-5.0); Sodium 147 mmol/L (137-145)
[2021-11-29 04:56] LABS: Alveolar/Arterial O2 Gradient 93.8 mmHg; Base Excess ABG -0.5 mEq/l (+/-2.0); Carboxyhemoglobin 0.3 % THb (0-2.0); Fractional Inspired Oxygen 30 %; HCO3 ABG 24.1 mEq/l (22.0-26.0); Methemoglobin ABG 0.4 %THb (0-1.5); Oxygen Content ABG 11.7 %vol (16.0-22.0); Oxygen Saturation ABG 95.1 % (95.0-100.0); Oxyhemoglobin 92.7 % THb (90.0-100.0); PCO2 ABG 39.1 mmHg (35.0-45.0); PO2 ABG 74.2 mmHg (80.0-100.0); PO2 FiO2 Ratio Arterial Blood 2.47 %; Reduced Hemoglobin 6.6 %THb (0-5.0); Total Hemoglobin 8.9 g/dL (12.0-18.0); pH ABG 7.407 (7.350-7.450)
[2021-11-29 05:09] LABS: Arterial Blood Gas Ventilator rate 24 /MIN; Device VENTILATOR; Site Drawn RIGHT RADIAL
[2021-11-29 05:10] LABS: Arterial Blood Gas PEEP 8 cmH2O; Arterial Blood Gas Tidal Volume 500 ml; Arterial Blood Gas Vent Mode CMV
[2021-11-29 06:17] LABS: Free T4 Free Thyroxine Reflex 0.86 ng/dL (0.78-2.19)
[2021-11-29] MEDS: CENTRAL LINE FLUSH 10 ML IV PUSH ×3 (06:29→20:02)
[2021-11-29] MEDS: ENOXAPARIN 40 MG/0.4 ML SYRINGE SUB-Q (08:05)
[2021-11-29] MEDS: polyethylene glycoL 3350 17 GM POWD.PACK PO (08:05)
[2021-11-29] MEDS: ASPIRIN 325 MG TABLET FEED TUBE (08:05)
[2021-11-29] MEDS: PANTOPRAZOLE SODIUM IV 40 MG VIAL IV PUSH ×2 (08:05→20:01)
[2021-11-29] MEDS: SIMVASTATIN 10 MG TABLET PO (08:06)
[2021-11-29] MEDS: MINERAL OIL/WHITE PETROLATUM OINTMENT 1 APPLIC EACH EYE ×2 (08:06→20:02)
[2021-11-29] MEDS: METOPROLOL TARTRATE 12.5 MG TABLET PO ×2 (08:11→20:01)
--- NOTE | 2021-11-29 11:54 | PCFNICU ---
ICU Rounding Note: Pt current nutrition is Vital AF at 60 ml/hr. Last recorded weight is 93.7 kg, down from 94.6 kg on admit. Bowel Motility:No BM reported-Reglan and Miralax have started. Labs Reviewed:Glu 138,GFR 47, BUN 49, Cr 1.5,Na 147, Hct 30.9, Hgb 8.5 Meds Noted:Fentanyl, Versed, Lasix, Reglan, Miralax, Lopressor, Lovenox Skin: Maceration noted on buttock. Additional Notes: Patient remains on mechanical vent and tube feedings of Vital AF 1.2 at 60 ml/hr over 22 hours. Tolerating tube feedings per nursing. Free water flush 100 ml q 4 hours, Na 147. Agree with diet orders. Monitoring: Following daily in ICU rounds. Will reassesses every Sunday and Sunday.
[2021-11-29 12:13] LABS: Glucose Point of Care 154 mg/dl (65-105)
--- NOTE | 2021-11-29 13:07 | WPDINTPN ---
Progress Note: A&P Assessment and Plan (1) Acute respiratory failure: Code(s): J96.00 - Acute respiratory failure, unspecified whether with hypoxia or hypercapnia Status: Acute Assessment and Plan: Patient presented with acute respiratory failure was intubated on 11/22/2021 by EMS in the field as he was hypoxic with O2 sats in the 60s on room air upon arrival of the EMS. -patient was in acute respiratory failure secondary to pulmonary edema, congestive heart failure and COPD exacerbation -11/24 tried PSV 5/5 weaning trial with patient quickly became tachycardic tachypneic with increased work of breathing desat. Trial was aborted and patient was placed on CMV and re sedated. Also went into AFib with RVR at that time. It took many hours for patient to stabilize post that -patient was tried on Precedex infusion but patient did not tolerate due to hypotension and bradycardia -11/26 failed weaning trial due to high RSBI and work of breathing -11/28 tried PSV of 10/8 and patient quickly failed due to high RSBI and work of breathing. - Continue full mechanical ventilation support to prevent hypoxemia/hypercarbia and end organ damage. -patient is sedated with Versed and fentanyl, have asked the nurse to decrease sedation -chest x-ray this morning: Decreasing peripheral reticular opacities at the right mid to lower and left lower lung zones which could represent improving mild pulmonary edema, atelectasis or less likely pneumonia. Creatinine trending up, will hold Lasix for today -continue bronchodilators -continue low tidal volumes to prevent volutrauma 11/23/2021 CTA PE protocol 1. No pulmonary embolus. Sensitivity is mildly decreased by motion artifact. 2. Mild pulmonary edema. 3. Small pleural effusions. 4. Mild emphysema. 5. Cardiomegaly. 6. Cirrhosis of the liver. (2) Non-STEMI (non-ST elevated myocardial infarction): Code(s): I21.4 - Non-ST elevation (NSTEMI) myocardial infarction Status: Acute Assessment and Plan: Per patient's pharmacy and patient's he has not taken any medication for months now. He does continue to smoke -Records from [facility] states the patient has a stent in his right groin and has history of coronary disease with a stent in his heart but no further details -Elevated troponin but EKG did not show any ST elevation but was abnormal -Cardiology following there is no plan for angiogram at this time. Okay with discontinuing heparin -11/25 Discontinued heparin drip due to drop in hemoglobin until hemoglobin is stable -Continue aspirin and statin, beta-raquel and low-dose Cozaar if blood pressures permit -Request faxed to obtain records from [facility] and [facility] also but no records obtained till now. Will resend requested -Cardiology recommends conservative management this time but will evaluate for cardiac catheterization once records are obtained from outside hospital 11/23/2021 Echocardiogram reviewed 1. Left ventricular systolic function is moderately reduced, estimated at 35-40% with dyskinetic apex. ? 2. Left ventricular chamber dimension is mildly enlarged. ? 3. There is mildly increased left ventricular wall thickness. ? 4. There is no thrombus visualized in the left ventricle. ? 5. The left ventricular diastolic function is abnormal. ? 6. There is mild tricuspid valve regurgitation. ? 7. Mild pulmonary hypertension, estimated pulmonary arterial systolic pressure is 38 mmHg. ? 8. Technically difficult study with limited views with administration of definity contrast. (3) CHF (congestive heart failure): Qualifiers: Heart failure chronicity: unspecified Heart failure type: unspecified Qualified Code(s): I50.9 - Heart failure, unspecified Code(s): I50.9 - Heart failure, unspecified Status: Acute Assessment and Plan: CT scan shows pulmonary edema and pleural effusion Echocardiogram reviewed -
--- NOTE | 2021-11-29 14:54 | PM.IMPN ---
Progress Note: A&P Assessment and Plan (1) Acute respiratory failure: Code(s): J96.00 - Acute respiratory failure, unspecified whether with hypoxia or hypercapnia Status: Acute Assessment and Plan: Acute Respiratory failure secondary to pulmonary edema from CHF, NSTEMI and possibly from COPD. Patient was intubated in the field. CT scan of the chest showed no PE and mild pulmonary edema. He is not tolerating weaning trials. Lasix once with good diuresis. Bronchodilators prn. Wean off vent as toelrated. (2) Non-STEMI (non-ST elevated myocardial infarction): Code(s): I21.4 - Non-ST elevation (NSTEMI) myocardial infarction Status: Acute Assessment and Plan: Per patient's pharmacy and patient's he has not taken any medication for months now. He does continue to smoke. Old records states the patient has a stent in his right groin and has history of CAD with heart stent placed. Elevated troponins. EKG was abnormal but not showing acute elevation. Echo showing she EF 35-40% with dyskinetic apex and abnormal diastolic function. Cardiology following but there is no plan for angiogram at this time. Heparin discontinued. Continue aspirin, statin, beta-raquel and Cozaar. (3) CHF (congestive heart failure): Qualifiers: Heart failure chronicity: unspecified Heart failure type: unspecified Qualified Code(s): I50.9 - Heart failure, unspecified Code(s): I50.9 - Heart failure, unspecified Status: Acute Assessment and Plan: CT scan shows pulmonary edema and pleural effusion. Echo as mentioned above. Continue intermittent Lasix dosing. (4) Urinary tract infection: Qualifiers: Hematuria presence: with hematuria Urinary tract infection type: acute cystitis Qualified Code(s): N30.01 - Acute cystitis with hematuria Code(s): N39.0 - Urinary tract infection, site not specified Status: Acute Assessment and Plan: UA noted. Urine culture She is having growing non uropathogenic organisms.Blood cultures no growth to date. (5) Atrial fibrillation with RVR: Code(s): I48.91 - Unspecified atrial fibrillation Status: Acute Assessment and Plan: Patient went into atrial fibrillation with RVR. Heparin discontinued due to anemia. He remains on aspirin. He has intermittent atrial fibrillation but heart rate control with Lopressor. Echo as mentioned above. TSH normal. Cardiology following. Appreciate their input. (6) KIMBERLY (acute kidney injury): Code(s): N17.9 - Acute kidney failure, unspecified Status: Acute Assessment and Plan: patient with probable mild CKD with creatinine running 1.2-1.4 range. No clear baseline but creatinine stable overall and probably chronically elevated. Will follow. (7) Anemia: Code(s): D64.9 - Anemia, unspecified Status: Acute Assessment and Plan: Acute on chronic anemia. Hgb 7-8 range on admission but Hgb did drop to 6.9. No obvious sign of bleeding. PPI changed to IV q.12 hours. Heparin infusion was discontinued. Patient was transfused 1 unit of PRBC on 11/25. Continue to monitor hemoglobin which is remained stable. Lovenox Plan DVT prophylaxis: Lovenox code status: Full Subjective Date/time seen: 11/29/21 14:54 Interval history: 66yo male with PAD, CAD and COPD here for respiratory failure. -11/29/2021 is seen and examined. Remains intubated and sedated. Labs reviewed Review of Systems Review of Systems: ROS unobtainable: Yes unobtainable due to mental status Exam Narrative: Gen - intubated and sedated HEENT - ETT and OG secured Chest - coarse BS anteriorly CV - Irregularly irregular. S1-S2. Telemetry showing intermittent AFib and a flutter Abd - soft, ND, +BS - Gray secured draining clear yellow urine Ext - bilateral AKA. stumps are clean, dry and intact Neuro - sedated Skin - Warm and dry Objective
--- NOTE | 2021-11-29 15:07 | PM.PNCARD ---
Progress Note: A&P Assessment and Plan (1) Non-STEMI (non-ST elevated myocardial infarction): Code(s): I21.4 - Non-ST elevation (NSTEMI) myocardial infarction Status: Acute Assessment and Plan: Elevated troponin may represent an acute coronary event or could also simply be a type 2 infarction because of respiratory extremis hypoxemia and severe acidemia.? His ST segment changes have improved following a intubation and ventilation.? His records indicate that he has a history of coronary disease and previous stenting of this but details of this are unknown.? I spoke with the patient's sister who was at the bedside who thinks his PCI took place at [facility] in [place].? I have placed a records request for the cath report.? Currently no plans to perform an ischemic evaluation in the form of coronary angiography.? He developed anemia, heparin gtt has been discontinued.? Continue supportive care.? (2) CHF (congestive heart failure): Qualifiers: Heart failure chronicity: unspecified Heart failure type: unspecified Qualified Code(s): I50.9 - Heart failure, unspecified Code(s): I50.9 - Heart failure, unspecified Status: Acute Assessment and Plan: Improved with furosemide. Losartan has been added to his regimen because of LV dysfunction noted on echo. (3) Acute respiratory failure: Code(s): J96.00 - Acute respiratory failure, unspecified whether with hypoxia or hypercapnia Status: Acute Assessment and Plan: Acute Respiratory failure secondary to pulmonary edema from CHF, ? COPD. Patient remains intubated, attempts to wean have not been successful. Management per critical care. (4) Urinary tract infection: Qualifiers: Hematuria presence: with hematuria Urinary tract infection type: acute cystitis Qualified Code(s): N30.01 - Acute cystitis with hematuria Code(s): N39.0 - Urinary tract infection, site not specified Status: Acute Assessment and Plan: Abx per critical care. Bcx NGTD. (5) Atrial fibrillation with RVR: Code(s): I48.91 - Unspecified atrial fibrillation Status: Acute Assessment and Plan: Rate controlled. Had been on heparin gtt but stopped because of anemia. (6) KIMBERLY (acute kidney injury): Code(s): N17.9 - Acute kidney failure, unspecified Status: Acute (7) Anemia: Code(s): D64.9 - Anemia, unspecified Status: Acute Assessment and Plan: Acute on chronic anemia. Hgb 7-8 range on admission but Hgb did drop to 6.9. No obvious sign of bleeding. PPI changed to IV q.12 hours. Heparin infusion was discontinued. Patient was transfused 1 unit of PRBC on 11/25. Continue to monitor hemoglobin which is remained stable. Colin Subjective Date/time seen: 11/29/21 15:07 Cardiology follow up Interval history: No acute events overnight. Remains intubated and sedated in the ICU. Review of Systems Review of Systems: ROS unobtainable: Yes unobtainable due to endotracheal tube Exam Const: Other: Sedated intubated white male with multiple tattoos and bilateral above the knee amputation HENMT: Mouth: Yes moist mucous membranes Eyes: Sclera: sclerae normal Pupils: Equal, round and reactive pupils present Neck: Neck: supple and no JVD Carotids: no bruits Other: no obvious JVD carotid pulses are intact bilaterally no bruits are heard over the neck Resp: Auscultation: rhonchi Other: Breath sounds on the ventilator are essentially clear Cardio: Rate: regular rate Rhythm: regular rhythm Heart sounds: no murmurs Other: PMI is not palpable, no audible murmur GI: Auscultation: normal bowel sounds Urinary Catheter: Urinary Catheter: patent and draining Skin: General skin exam: normal color Wounds: no wounds Neuro: Cranial nerves: Yes Equal, round and reactive pupils present Other: sedated Extrem: Other: Bilateral AKA Objective Data Vital Signs V
[2021-11-29] MEDS: MIDAZOLAM 100MG/NS 100ML(*CRX) 100 MG/100 ML BAG IV CONT (16:26)
[2021-11-29 17:27] LABS: Glucose Point of Care 149 mg/dl (65-105)
[2021-11-29 23:53] LABS: Glucose Point of Care 158 mg/dl (65-105)
[2021-11-30] VITALS (31 sets, daily range): BP systolic 86–113; BP diastolic 61–71; PULSE 73–109; RESP 18–27; TEMP 36.6–38.9; O2SAT 92–100; BMI 30.3
[2021-11-30 04:45] LABS: Basophils Absolute Auto 0.1 K/mm3 (0.0-0.1); Basophils Percent Auto 0.5 % (0.2-1.2); Eosinophils Absolute Auto 0.3 K/mm3 (0-0.3); Eosinophils Percent Auto 2.5 % (0-4.4); Hematocrit 28.9 % (42.0-52.0); Hemoglobin 8.3 g/dL (14.0-18.0); Immature Granulocyte Percent A 0.8 % (0-0.5); Lymphocytes Absolute Auto 1.66 K/mm3 (0.9-3.2); Lymphocytes Percent Auto 13.2 % (18.3-44.2); Mean Corpuscular HGB Conc 28.7 g/dl (32-36); Mean Corpuscular Hemoglobin 22.1 pg (26-34); Mean Corpuscular Volume 76.9 fl (80-100); Mean Platelet Volume 10.3 fl (7.4-10.4); Monocytes Absolute Auto 1.2 K/mm3 (0.1-0.6); Monocytes Percent Auto 9.4 % (2.6-8.5); Neutrophils Absolute Auto 9.3 K/mm3 (1.3-6.7); Neutrophils Percent Auto 73.6 % (45.5-73.1); Nucleated Red Blood Cells Perc 0.2 % (0.0-0.2); Platelet Count Result 454 k/mm3 (150-375); Red Blood Count 3.76 M/mm3 (4.6-6.20); Red Cell Distribution Width 22.5 % (11.5-14.5); White Blood Count 12.6 K/mm3 (4.5-10.0)
[2021-11-30] MEDS: CENTRAL LINE FLUSH 10 ML IV PUSH ×3 (04:52→19:55)
[2021-11-30] MEDS: METOCLOPRAMIDE HCL 10 MG/10 ML SOLN UDC FEED TUBE ×4 (04:52→19:55)
[2021-11-30] MEDS: ACETAMINOPHEN 325 MG TABLET 650 MG PO ×2 (04:56→15:33)
[2021-11-30 04:57] LABS: Alanine Aminotransferase 17 U/L (6-50); Albumin Level 3.3 g/dL (3.5-5.1); Alkaline Phosphatase 140 U/L (38-126); Anion Gap 7 mmol/L (8-16); Aspartate Amino Transferase 41 U/L (17-59); Bilirubin,Total 0.5 mg/dL (0.2-1.3); Blood Urea Nitrogen 55 mg/dL (9-20); Calcium 8.6 mg/dL (8.4-10.2); Carbon Dioxide 26 mmol/L (22-30); Chloride 116 mmol/L (98-107); Estimated CRCL calculation 47 ml/min; Estimated Glomerular Filt Rate 44; Glucose 158 mg/dL (65-110); Magnesium 2.7 mg/dL (1.6-2.3); Phosphorus 3.4 mg/dL (2.5-4.5); Potassium 4.2 mmol/L (3.4-5.0); Sodium 149 mmol/L (137-145)
[2021-11-30 05:07] LABS: Alveolar/Arterial O2 Gradient 97.3 mmHg; Base Excess ABG 1.1 mEq/l (+/-2.0); Carboxyhemoglobin 0.2 % THb (0-2.0); Fractional Inspired Oxygen 30 %; HCO3 ABG 25.1 mEq/l (22.0-26.0); Methemoglobin ABG 0.3 %THb (0-1.5); Oxygen Content ABG 16.2 %vol (16.0-22.0); Oxygen Saturation ABG 95.3 % (95.0-100.0); Oxyhemoglobin 92.9 % THb (90.0-100.0); PCO2 ABG 37.4 mmHg (35.0-45.0); PO2 ABG 72.7 mmHg (80.0-100.0); PO2 FiO2 Ratio Arterial Blood 2.42 %; Reduced Hemoglobin 6.6 %THb (0-5.0); Total Hemoglobin 12.4 g/dL (12.0-18.0); pH ABG 7.444 (7.350-7.450)
[2021-11-30 05:09] LABS: Arterial Blood Gas Vent Mode CMV; Arterial Blood Gas Ventilator rate 24 /MIN; Device VENTILATOR; Modified Allen's Test Pass; Site Drawn LEFT RADIAL
[2021-11-30 05:10] LABS: Arterial Blood Gas PEEP 8 cmH2O; Arterial Blood Gas Tidal Volume 500 ml
[2021-11-30] MEDS: ENOXAPARIN 40 MG/0.4 ML SYRINGE SUB-Q (08:17)
[2021-11-30] MEDS: METOPROLOL TARTRATE 12.5 MG TABLET PO (08:17)
[2021-11-30] MEDS: SIMVASTATIN 10 MG TABLET PO (08:17)
[2021-11-30] MEDS: ASPIRIN 325 MG TABLET FEED TUBE (08:17)
[2021-11-30] MEDS: polyethylene glycoL 3350 17 GM POWD.PACK PO (08:17)
[2021-11-30] MEDS: PANTOPRAZOLE SODIUM IV 40 MG VIAL IV PUSH ×2 (08:17→19:55)
[2021-11-30] MEDS: MINERAL OIL/WHITE PETROLATUM OINTMENT 1 APPLIC EACH EYE ×2 (08:17→19:56)
[2021-11-30] MEDS: LOSARTAN POTASSIUM 12.5 MG TABLET PO (08:17)
[2021-11-30] MEDS: FUROSEMIDE INJ 40 MG/4 ML VIAL 20 MG IV PUSH (09:14)
--- NOTE | 2021-11-30 10:40 | PCFNICU ---
ICU Rounding Note: Pt current nutrition is Vital AF 1.2 at 60 ml/hr over 22 hours. Last recorded weight is 90.4 kg, down from 94.6 kg on admit. Bowel Motility: smear noted on 11/28 Labs Reviewed: Glu 158, Na 149, GFR 44, BUN 55, Cr 1.6, Hct 28.9,Hgb 8.3 Meds Noted:Fentanyl & Versed-paused. Lasix, Reglan, Miralax, Lopressor, Lovenox Skin: Maceration-coccyx Additional Notes: Patient remains on mechanical vent plans to change to ASV mode today. Tube feeding of Vital AF 1.2 at 60 ml/hr are being tolerating. 100 ml free water flush q 4 hours, Na 149 today. Agree with diet orders. Following daily in ICU rounds and reassessing every Sunday and Sunday.
[2021-11-30 11:21] LABS: Glucose Point of Care 175 mg/dl (65-105)
[2021-11-30 12:59] LABS: Appearance Urine Cloudy (Clear); Bilirubin Urine Negative (Negative); Blood Urine 1+ (Negative); Color Urine Yellow (Yellow); Glucose Urine UA Negative (Negative); Ketones Urine Negative (Negative); Leukocyte Esterase Ur 1+ LEU/UL (Negative); Nitrate Urine Negative (Negative); Protein Urine Trace mg/dL (Negative); pH Urine 5.5 (5.0-9.0)
[2021-11-30 13:12] LABS: Bacteria Urine Trace /hpf; Mucus Urine Few /lpf; RBC Urine 21-50 /hpf (0-2); Squamous Epithelial Cell Urine Occasional /hpf (Few); WBC Urine 31-50 /hpf
[2021-11-30 13:13] LABS: Add Urine Microscopic? YES
--- NOTE | 2021-11-30 13:37 | WPDINTPN ---
Progress Note: A&P Assessment and Plan (1) Acute respiratory failure: Code(s): J96.00 - Acute respiratory failure, unspecified whether with hypoxia or hypercapnia Status: Acute Assessment and Plan: Patient presented with acute respiratory failure was intubated on 11/22/2021 by EMS in the field as he was hypoxic with O2 sats in the 60s on room air upon arrival of the EMS. -patient was in acute respiratory failure secondary to pulmonary edema, congestive heart failure and COPD exacerbation -11/24 tried PSV 5/5 weaning trial with patient quickly became tachycardic tachypneic with increased work of breathing desat. Trial was aborted and patient was placed on CMV and re sedated. Also went into AFib with RVR at that time. It took many hours for patient to stabilize post that -patient was tried on Precedex infusion but patient did not tolerate due to hypotension and bradycardia -11/26 failed weaning trial due to high RSBI and work of breathing -11/28 tried PSV of 10/8 and patient quickly failed due to high RSBI and work of breathing. - Continue full mechanical ventilation support to prevent hypoxemia/hypercarbia and end organ damage. -patient is sedated with Versed and fentanyl, have asked the nurse to decrease sedation -chest x-ray this morning: Persistent opacities at the bilateral lung bases suggesting small bilateral layering pleural effusions with associated basilar atelectasis or pneumonia. Will wean PEEP to 5, have asked the bedside RN to stop her sedation, will try patient on ASV. Creatinine trending up -continue bronchodilators -continue low tidal volumes to prevent volutrauma 11/23/2021 CTA PE protocol 1. No pulmonary embolus. Sensitivity is mildly decreased by motion artifact. 2. Mild pulmonary edema. 3. Small pleural effusions. 4. Mild emphysema. 5. Cardiomegaly. 6. Cirrhosis of the liver. (2) Non-STEMI (non-ST elevated myocardial infarction): Code(s): I21.4 - Non-ST elevation (NSTEMI) myocardial infarction Status: Acute Assessment and Plan: Per patient's pharmacy and patient's he has not taken any medication for months now. He does continue to smoke -Records from [facility] states the patient has a stent in his right groin and has history of coronary disease with a stent in his heart but no further details -Elevated troponin but EKG did not show any ST elevation but was abnormal -Cardiology following there is no plan for angiogram at this time. Okay with discontinuing heparin -11/25 Discontinued heparin drip due to drop in hemoglobin until hemoglobin is stable -Continue aspirin and statin, beta-raquel and low-dose Cozaar if blood pressures permit -Request faxed to obtain records from [facility] and [facility] also but no records obtained till now. Will resend requested -Cardiology recommends conservative management this time but will evaluate for cardiac catheterization once records are obtained from outside hospital 11/23/2021 Echocardiogram reviewed 1. Left ventricular systolic function is moderately reduced, estimated at 35-40% with dyskinetic apex. ? 2. Left ventricular chamber dimension is mildly enlarged. ? 3. There is mildly increased left ventricular wall thickness. ? 4. There is no thrombus visualized in the left ventricle. ? 5. The left ventricular diastolic function is abnormal. ? 6. There is mild tricuspid valve regurgitation. ? 7. Mild pulmonary hypertension, estimated pulmonary arterial systolic pressure is 38 mmHg. ? 8. Technically difficult study with limited views with administration of definity contrast. (3) CHF (congestive heart failure): Qualifiers: Heart failure chronicity: unspecified Heart failure type: unspecified Qualified Code(s): I50.9 - Heart failure, unspecified Code(s): I50.9 - Heart failure, unspecified Status: Acute Assessment and Plan: CT scan shows pulmonary edema and pleura
[2021-11-30 16:45] LABS: Glucose Point of Care 206 mg/dl (65-105)
[2021-11-30] MEDS: INSULIN ASPART (*BKC) 100 UNITS/ML SUB-Q (17:09)
--- NOTE | 2021-11-30 20:05 | PM.IMPN ---
Progress Note: A&P Assessment and Plan (1) Acute respiratory failure: Code(s): J96.00 - Acute respiratory failure, unspecified whether with hypoxia or hypercapnia Status: Acute Assessment and Plan: Acute Respiratory failure secondary to pulmonary edema from CHF, NSTEMI and possibly from COPD. Patient was intubated in the field on 11/22/21. CT chest showed no PE but mild pulmonary edema. He was not tolerating weaning trials. Off sedation but not arousable at this time. Continue supportive care. Wean off MV as able. (2) Fever: Code(s): R50.9 - Fever, unspecified Status: Acute Assessment and Plan: patient has developed fevers that are resistant to antipyretic medications and we have had to resort to cooling blanket. Chest x-ray shows persistent opacities in bilateral lung bases. Repeat cultures obtained. Antibiotics on hold. Consider cerebral insult given fact that he has poorly responsive off sedation. Check CT the brain to exclude bleed. If negative, may need LP if no improvement in his mental status. (3) Non-STEMI (non-ST elevated myocardial infarction): Code(s): I21.4 - Non-ST elevation (NSTEMI) myocardial infarction Status: Acute Assessment and Plan: Per patient's pharmacy and patient's he has not taken any medication for months now. He does continue to smoke. Old records state the patient has a stent in his right groin and has history of CAD with coronary stent placed. Elevated troponins here with abnormal EKG but no acute elevation. Echo showing she EF 35-40% with dyskinetic apex and abnormal diastolic function. Cardiology following but there is no plan for angiogram at this time. Heparin discontinued. Continue aspirin, statin, beta-raquel and Cozaar. (4) CHF (congestive heart failure): Qualifiers: Heart failure chronicity: unspecified Heart failure type: unspecified Qualified Code(s): I50.9 - Heart failure, unspecified Code(s): I50.9 - Heart failure, unspecified Status: Acute Assessment and Plan: CT scan shows pulmonary edema and pleural effusion. Echo as mentioned above. Receiving intermittent Lasix dosing. (5) Urinary tract infection: Qualifiers: Hematuria presence: with hematuria Urinary tract infection type: acute cystitis Qualified Code(s): N30.01 - Acute cystitis with hematuria Code(s): N39.0 - Urinary tract infection, site not specified Status: Acute Assessment and Plan: UA noted. Urine culture 11/23 growing non uropathogenic organisms. Blood cultures no growth to date. Off abx. Patient has been re-cultured due to fevers. (6) Atrial fibrillation with RVR: Code(s): I48.91 - Unspecified atrial fibrillation Status: Acute Assessment and Plan: Patient went into AFib/Flutter with RVR. Heparin discontinued due to anemia. He remains on aspirin. He continues to have intermittent AFib/Flutter but heart rate control with Lopressor. Echo as mentioned above. TSH normal. Cardiology following. Appreciate their input. (7) KIMBERLY (acute kidney injury): Code(s): N17.9 - Acute kidney failure, unspecified Status: Acute Assessment and Plan: Patient with probable mild CKD with creatinine running 1.2-1.4 range. No clear baseline but creatinine more elevated today to 1.6. Possibly related to the Lasix of from [facility]. Will follow. (8) Anemia: Code(s): D64.9 - Anemia, unspecified Status: Acute Assessment and Plan: Acute on chronic anemia. Hgb 7-8 range on admission but Hgb did drop to 6.9. No obvious sign of bleeding. PPI changed to IV q.12 hours. Heparin infusion was discontinued. Patient was transfused 1 unit of PRBC on 11/25. Hgb low but stable in the 8 range. Continue to monitor hemoglobin. Toelrating Lovenox Plan DVT prophylaxis: Lovenox code status: DNR Subjective Date/time seen: 11/30/21 20:05 Interval histo
[2021-12-01] VITALS (40 sets, daily range): BP systolic 68–129; BP diastolic 48–77; PULSE 64–116; RESP 17–42; TEMP 37.6–38.9; O2SAT 96–100
[2021-12-01] MEDS: ACETAMINOPHEN 325 MG TABLET 650 MG PO ×3 (00:31→18:24)
[2021-12-01 00:33] LABS: Glucose Point of Care 201 mg/dl (65-105)
[2021-12-01] MEDS: INSULIN ASPART (*BKC) 100 UNITS/ML SUB-Q ×2 (00:35→18:25)
[2021-12-01] MEDS: METOCLOPRAMIDE HCL 10 MG/10 ML SOLN UDC FEED TUBE ×4 (03:01→20:59)
[2021-12-01 05:17] LABS: Alveolar/Arterial O2 Gradient 119.9 mmHg; Base Excess ABG 0.7 mEq/l (+/-2.0); Carboxyhemoglobin 0.2 % THb (0-2.0); Fractional Inspired Oxygen 40 %; HCO3 ABG 24.5 mEq/l (22.0-26.0); Methemoglobin ABG 0.5 %THb (0-1.5); Oxygen Saturation ABG 98.6 % (95.0-100.0); Oxyhemoglobin 97.2 % THb (90.0-100.0); PCO2 ABG 36.5 mmHg (35.0-45.0); PO2 ABG 123.3 mmHg (80.0-100.0); PO2 FiO2 Ratio Arterial Blood 3.08 %; Reduced Hemoglobin 2.1 %THb (0-5.0); Total Hemoglobin 12.3 g/dL (12.0-18.0); pH ABG 7.445 (7.350-7.450)
[2021-12-01 05:18] LABS: Arterial Blood Gas Ventilator rate 24 /MIN; Device VENTILATOR; Modified Allen's Test Pass; Site Drawn LEFT RADIAL
[2021-12-01 05:19] LABS: Arterial Blood Gas PEEP 8 cmH2O; Arterial Blood Gas Tidal Volume 500 ml; Arterial Blood Gas Vent Mode CMV
[2021-12-01 05:44] LABS: Hematocrit 30.2 % (42.0-52.0); Hemoglobin 8.3 g/dL (14.0-18.0); Mean Corpuscular HGB Conc 27.5 g/dl (32-36); Mean Corpuscular Hemoglobin 21.6 pg (26-34); Mean Corpuscular Volume 78.6 fl (80-100); Mean Platelet Volume 10.3 fl (7.4-10.4); Platelet Count Result 464 k/mm3 (150-375); Red Blood Count 3.84 M/mm3 (4.6-6.20); Red Cell Distribution Width 22.5 % (11.5-14.5); White Blood Count 13.8 K/mm3 (4.5-10.0)
[2021-12-01] MEDS: CENTRAL LINE FLUSH 10 ML IV PUSH ×3 (05:53→21:03)
[2021-12-01 06:02] LABS: Alanine Aminotransferase 25 U/L (6-50); Albumin Level 3.4 g/dL (3.5-5.1); Alkaline Phosphatase 152 U/L (38-126); Anion Gap 8 mmol/L (8-16); Aspartate Amino Transferase 64 U/L (17-59); Bilirubin,Total 0.6 mg/dL (0.2-1.3); Blood Urea Nitrogen 55 mg/dL (9-20); Calcium 8.5 mg/dL (8.4-10.2); Carbon Dioxide 26 mmol/L (22-30); Chloride 118 mmol/L (98-107); Estimated CRCL calculation 52 ml/min; Estimated Glomerular Filt Rate 51; Glucose 170 mg/dL (65-110); Lactic Acid Reflex 1.7 mmol/L (0.7-2.0); Magnesium 2.6 mg/dL (1.6-2.3); Phosphorus 3.2 mg/dL (2.5-4.5); Potassium 4.1 mmol/L (3.4-5.0); Sodium 152 mmol/L (137-145)
[2021-12-01] MEDS: FUROSEMIDE INJ 40 MG/4 ML VIAL 20 MG IV PUSH (07:51)
[2021-12-01] MEDS: ENOXAPARIN 100 MG/ML SYRINGE 90 MG SUB-Q (07:55)
[2021-12-01] MEDS: ASPIRIN 325 MG TABLET FEED TUBE (07:56)
[2021-12-01] MEDS: METOPROLOL TARTRATE 12.5 MG TABLET PO ×2 (07:57→21:00)
[2021-12-01] MEDS: LOSARTAN POTASSIUM 12.5 MG TABLET PO (07:57)
[2021-12-01] MEDS: MINERAL OIL/WHITE PETROLATUM OINTMENT 1 APPLIC EACH EYE ×2 (07:58→21:02)
[2021-12-01] MEDS: PANTOPRAZOLE SODIUM IV 40 MG VIAL IV PUSH ×2 (07:58→20:59)
[2021-12-01] MEDS: polyethylene glycoL 3350 17 GM POWD.PACK PO (07:58)
[2021-12-01] MEDS: SIMVASTATIN 10 MG TABLET PO (07:59)
--- NOTE | 2021-12-01 08:06 | WPDINTPN ---
Progress Note: A&P Assessment and Plan (1) Acute respiratory failure: Code(s): J96.00 - Acute respiratory failure, unspecified whether with hypoxia or hypercapnia Status: Acute Assessment and Plan: Patient presented with acute respiratory failure was intubated on 11/22/2021 by EMS in the field as he was hypoxic with O2 sats in the 60s on room air upon arrival of the EMS. -patient was in acute respiratory failure secondary to pulmonary edema, congestive heart failure and COPD exacerbation -patient has been failing weaning trial since 11/24/2021 -off sedation, patient still encephalopathic, patient unable to be placed on a weaning trial given his mental status. - Full mechanical ventilation support to prevent hypoxemia/hypercarbia and end organ damage. -CMV mode, 40% FiO2 and peep of 8, he did tolerate ASV on 11/30/2021. Will place patient back on ASV today -OFF all sedation -chest x-ray this morning: Improving, minimal basilar pulmonary edema and decreasing small right and tiny left pleural effusions.. Patient responded well to diuresis on 11/30 -will diurese again today -continue bronchodilators 11/23/2021 CTA PE protocol 1. No pulmonary embolus. Sensitivity is mildly decreased by motion artifact. 2. Mild pulmonary edema. 3. Small pleural effusions. 4. Mild emphysema. 5. Cardiomegaly. 6. Cirrhosis of the liver. (2) Non-STEMI (non-ST elevated myocardial infarction): Code(s): I21.4 - Non-ST elevation (NSTEMI) myocardial infarction Status: Acute Assessment and Plan: Per patient's pharmacy and patient's he has not taken any medication for months now. He does continue to smoke -Records from [facility] states the patient has a stent in his right groin and has history of coronary disease with a stent in his heart but no further details -Elevated troponin but EKG did not show any ST elevation but was abnormal -Cardiology following there is no plan for angiogram at this time. -11/25 Discontinued heparin drip due to drop in hemoglobin until hemoglobin is stable -Continue aspirin and statin, beta-raquel and low-dose Cozaar if blood pressures permit -Request faxed to obtain records from [facility] and [facility] also but no records obtained till now. Will resend requested -Cardiology recommends conservative management this time but will evaluate for cardiac catheterization once records are obtained from outside hospital 11/23/2021 Echocardiogram reviewed 1. Left ventricular systolic function is moderately reduced, estimated at 35-40% with dyskinetic apex. ? 2. Left ventricular chamber dimension is mildly enlarged. ? 3. There is mildly increased left ventricular wall thickness. ? 4. There is no thrombus visualized in the left ventricle. ? 5. The left ventricular diastolic function is abnormal. ? 6. There is mild tricuspid valve regurgitation. ? 7. Mild pulmonary hypertension, estimated pulmonary arterial systolic pressure is 38 mmHg. ? 8. Technically difficult study with limited views with administration of definity contrast. (3) CHF (congestive heart failure): Qualifiers: Heart failure chronicity: unspecified Heart failure type: unspecified Qualified Code(s): I50.9 - Heart failure, unspecified Code(s): I50.9 - Heart failure, unspecified Status: Acute Assessment and Plan: CT scan shows pulmonary edema and pleural effusion Echocardiogram reviewed -systolic dysfunction with cardiomyopathy Patient responded well to diuretics on 11/30 -will repeat Lasix again today (4) Urinary tract infection: Qualifiers: Hematuria presence: with hematuria Urinary tract infection type: acute cystitis Qualified Code(s): N30.01 - Acute cystitis with hematuria Code(s): N39.0 - Urinary tract infection, site not specified Status: Acute Assessment and Plan: Blood and urine cultures done and are negative till
--- NOTE | 2021-12-01 08:13 | PC.NURSE ---
Tylenol given, cooling blanket placed on chest
[2021-12-01 08:51] LABS: Ammonia < 9 umol/L (9-30)
--- NOTE | 2021-12-01 09:00 | PM.IMPN ---
Progress Note: A&P Assessment and Plan (1) Acute respiratory failure: Code(s): J96.00 - Acute respiratory failure, unspecified whether with hypoxia or hypercapnia Status: Acute Assessment and Plan: Acute respiratory failure secondary to pulmonary edema from CHF, NSTEMI and possibly from COPD. Patient was intubated in the field on 11/22/21. CT chest showed no PE but mild pulmonary edema. He was not tolerating weaning trials. Off sedation but not arousable at this time. FiO2 down to 30%. Continue supportive care. Wean off MV as able. (2) Fever: Code(s): R50.9 - Fever, unspecified Status: Acute Assessment and Plan: Patient has developed fevers that are resistant to antipyretic medications and we have had to resort to cooling blanket. Chest x-ray shows persistent opacities in bilateral lung bases but improved with intermittent Lasix dosing. Repeat cultures obtained. Antibiotics resumed today. We considered cerebral insult but a limited CT brain showing no acute findings. Consider LP. Discussed with independent trader. (3) Non-STEMI (non-ST elevated myocardial infarction): Code(s): I21.4 - Non-ST elevation (NSTEMI) myocardial infarction Status: Acute Assessment and Plan: Per patient's pharmacy and patient's he has not taken any medication for months now. He does continue to smoke. Old records state the patient has a stent in his right groin and has history of CAD with coronary stent placed. Elevated troponins here with abnormal EKG but no acute elevation. Echo showing she EF 35-40% with dyskinetic apex and abnormal diastolic function. Cardiology following but there is no plan for angiogram at this time. Heparin discontinued. Continue aspirin, statin, beta-raquel and Cozaar. (4) CHF (congestive heart failure): Qualifiers: Heart failure chronicity: unspecified Heart failure type: unspecified Qualified Code(s): I50.9 - Heart failure, unspecified Code(s): I50.9 - Heart failure, unspecified Status: Acute Assessment and Plan: CT scan shows pulmonary edema and pleural effusion. Echo as mentioned above. Receiving intermittent Lasix dosing. CXR improving and down to Fio2 30%. (5) Urinary tract infection: Qualifiers: Hematuria presence: with hematuria Urinary tract infection type: acute cystitis Qualified Code(s): N30.01 - Acute cystitis with hematuria Code(s): N39.0 - Urinary tract infection, site not specified Status: Acute Assessment and Plan: UA noted. Urine culture 11/23 growing non uropathogenic organisms. Blood cultures no growth to date. Abx stopped but fever started. Patient has been re-cultured due to fevers. Cultures NGTD. Abx have been resumed. (6) Atrial fibrillation with RVR: Code(s): I48.91 - Unspecified atrial fibrillation Status: Acute Assessment and Plan: Patient went into AFib/Flutter with RVR. Heparin discontinued due to anemia. He remains on aspirin. He continues to have intermittent AFib/Flutter but heart rate control with Lopressor. Echo as mentioned above. TSH normal. Cardiology following. Appreciate their input. Lovenox therapeutic dose daily started. Adrianne REAGAN closely. (7) KIMBERLY (acute kidney injury): Code(s): N17.9 - Acute kidney failure, unspecified Status: Acute Assessment and Plan: Patient with probable mild CKD with creatinine running 1.2-1.4 range. Possibly increase in Cr related to the Lasix and/or from fevers. No clear baseline but creatinine better today to 1.4. Will follow. (8) Anemia: Code(s): D64.9 - Anemia, unspecified Status: Acute Assessment and Plan: Acute on chronic anemia. Hgb 7-8 range on admission but Hgb did drop to 6.9. No obvious sign of bleeding. PPI changed to IV q.12 hours. Heparin infusion was discontinued. Patient was transfused 1 unit of PRBC on 11/25. Hgb low but stable in the 8 range. Continue t
--- NOTE | 2021-12-01 09:30 | PC.NURSE ---
Head section of cooling blanket placed on patient.
--- NOTE | 2021-12-01 10:32 | PCFNICU ---
ICU Rounding Note: Pt current nutrition is Vital 1.2 @ 60ml/hr over 22 hours. Water flushes increased to 150ml q 4 hrs. Nutrition recommendation: Continue with current nutrition support orders Last recorded weight is 90.8 kg - stable, noted down from 94.6kg on admit. Bowel Motility: No BM noted since 11/23, orders for colace and suppository today Labs Reviewed:Hgb:8.3, HCT:30.2, Alb:3.4, NA:152, BUN:55, Cr:1.4, glu:170 Meds Noted: lasix, novolog, reglan, protonix, miralax Skin: maceration to coccyx Additional Notes: Tube feeds continue at goal rate. Noted Na of 152 - water flushes increased to 150ml q 4 hrs due to high Na. Tube feed totals: 1584kcals, 99g protein, 1970ml free water. Pt is tolerating feeds well with low residuals. Agree with diet order. Following daily in ICU rounds. Will monitor and follow up every /Sunday. .
[2021-12-01] MEDS: BISACODYL 10 MG SUPPOSITORY RECTAL (11:23)
--- NOTE | 2021-12-01 11:36 | PC.NURSE ---
Returned from CT without issues.
[2021-12-01 11:48] LABS: Glucose Point of Care 197 mg/dl (65-105)
--- NOTE | 2021-12-01 12:15 | P.CONNP_ITS ---
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 No ureteral calculus or hydroureteronephrosis of either kidney * responsive to diuretic therapy * folllow repeat labs and UOP (2) Hypernatremia: Code(s): E87.0 - Hyperosmolality and hypernatremia Status: Acute Assessment and Plan: * likely due to need for diuresis and insensible losses (i.e. fevers) resulting in significant free water deficit * titrate free water flushes to compensate * given issues with CHF, would try to limit D5W IVFs if possible * follow trend of sodium (3) Acute respiratory failure: Code(s): J96.00 - Acute respiratory failure, unspecified whether with hypoxia or hypercapnia Status: Acute Assessment and Plan: * intubated in the field by EMS (on 11/22/21) * thought to be secondary to pulmonary edema/CHF and possible COPD * not making much progress with regard to ventilator weaning * responsive to diuretic therapy * however, lack of improvement in mental status precludes ventilator weaning * continue supportive therapy (4) Fever: Code(s): R50.9 - Fever, unspecified Status: Acute Assessment and Plan: * as noted in the last 24 hours * follow culture data * repeat imaging being planned * on antibiotics (5) Non-STEMI (non-ST elevated myocardial infarction): Code(s): I21.4 - Non-ST elevation (NSTEMI) myocardial infarction Status: Acute Assessment and Plan: * elevated troponins noted * conservative therapy at this time * Cardiology following (6) CHF (congestive heart failure): Qualifiers: Heart failure chronicity: unspecified Heart failure type: unspecified Qualified Code(s): I50.9 - Heart failure, unspecified Code(s): I50.9 - Heart failure, unspecified Status: Acute Assessment and Plan: * follow I/Os, daily weights, and respiratory status * good response with IV diuretics * Cardiology following as well (7) Anemia: Code(s): D64.9 - Anemia, unspecified Status: Acute Assessment and Plan: * fluctuating H/H noted * depending on trend of hemoglobin, consider ESAs * follow H/H Will continue to follow. History of Present Illness Reason for Consult Consult date: 12/01/21 Reason for consult: acute renal failure and hypernatremia Requesting physician: Nidhi Roman MD Chief Complaint Chief complaint: CHF,UTI,resp distress,NSTEMI History of Present Illness Narrative: The patient is a 66-year-old male with an extensive past medical history as outlined below who presented to [facility] Emergency room intubated and on mechanical ventilation via EMS. Most of the information I have obtained is from review of the electronic medical record as well as discussion with family and the medical personnel involved in his care as he is unable to provide any history due to his current clinical status (intubated and sedated and on mechanical venti
--- NOTE | 2021-12-01 12:15 | PM.CNNEP ---
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 No ureteral calculus or hydroureteronephrosis of either kidney responsive to diuretic therapy folllow repeat labs and UOP (2) Hypernatremia: Code(s): E87.0 - Hyperosmolality and hypernatremia Status: Acute Assessment and Plan: likely due to need for diuresis and insensible losses (i.e. fevers) resulting in significant free water deficit titrate free water flushes to compensate given issues with CHF, would try to limit D5W IVFs if possible follow trend of sodium (3) Acute respiratory failure: Code(s): J96.00 - Acute respiratory failure, unspecified whether with hypoxia or hypercapnia Status: Acute Assessment and Plan: intubated in the field by EMS (on 11/22/21) thought to be secondary to pulmonary edema/CHF and possible COPD not making much progress with regard to ventilator weaning responsive to diuretic therapy however, lack of improvement in mental status precludes ventilator weaning continue supportive therapy (4) Fever: Code(s): R50.9 - Fever, unspecified Status: Acute Assessment and Plan: as noted in the last 24 hours follow culture data repeat imaging being planned on antibiotics (5) Non-STEMI (non-ST elevated myocardial infarction): Code(s): I21.4 - Non-ST elevation (NSTEMI) myocardial infarction Status: Acute Assessment and Plan: elevated troponins noted conservative therapy at this time Cardiology following (6) CHF (congestive heart failure): Qualifiers: Heart failure chronicity: unspecified Heart failure type: unspecified Qualified Code(s): I50.9 - Heart failure, unspecified Code(s): I50.9 - Heart failure, unspecified Status: Acute Assessment and Plan: follow I/Os, daily weights, and respiratory status good response with IV diuretics Cardiology following as well (7) Anemia: Code(s): D64.9 - Anemia, unspecified Status: Acute Assessment and Plan: fluctuating H/H noted depending on trend of hemoglobin, consider ESAs follow H/H Will continue to follow. History of Present Illness Reason for Consult Consult date: 12/01/21 Reason for consult: acute renal failure and hypernatremia Requesting physician: Nidhi Roman MD Chief Complaint Chief complaint: CHF,UTI,resp distress,NSTEMI History of Present Illness Narrative: The patient is a 66-year-old male with an extensive past medical history as outlined below who presented to [facility] Emergency room intubated and on mechanical ventilation via EMS. Most of the information I have obtained is from review of the electronic medical record as well as discussion with family and the medical personnel involved in his care as he is unable to provide any history due to his current clinical status (intubated and sedated and on mechanical ventilation). Apparently, EMS was called to the patient's house on the day of admission due to shortness of breath and respiratory distress. On their arrival, he was clearly having difficulty breathing and he was quite hypoxic. Administration of oxygen helped his oxygen saturations but he became more somnolent and did not seemed to have the ability to protect his airway. He was subsequently intubated in the field and transferred to [facility]
[2021-12-01] MEDS: dexmedeTOMIDine 400 MCG/100 ML 400 MCG/100 ML BAG IV CONT (16:19)
[2021-12-01 18:26] LABS: Glucose Point of Care 218 mg/dl (65-105)
--- NOTE | 2021-12-01 19:40 | PC.NURSE ---
Dr. Roman notified of BP. Precedex gtt to be discontinued and Versed gtt and Levophed gtt to be restarted.
[2021-12-01] MEDS: MIDAZOLAM 100MG/NS 100ML(*CRX) 100 MG/100 ML BAG IV CONT (19:43)
[2021-12-01] MEDS: NOREPINEPHRINE 8 MG/D5W 250 ML 8 MG/250 ML BAG 9.38 MG IV CONT (20:08)
[2021-12-01] MEDS: SENNA/DOCUSATE SODIUM TABLET 1 TAB PO (21:02)
[2021-12-01 23:48] LABS: Glucose Point of Care 196 mg/dl (65-105)
[2021-12-02] VITALS (29 sets, daily range): BP systolic 96–143; BP diastolic 56–100; PULSE 57–106; RESP 16–30; TEMP 37.6–38.6; O2SAT 96–100
[2021-12-02] MEDS: METOCLOPRAMIDE HCL 10 MG/10 ML SOLN UDC FEED TUBE ×3 (03:30→14:52)
[2021-12-02 05:07] LABS: Alveolar/Arterial O2 Gradient 98.7 mmHg; Base Excess ABG 0.8 mEq/l (+/-2.0); Carboxyhemoglobin 1.3 % THb (0-2.0); Device VENTILATOR; Fractional Inspired Oxygen 30 %; HCO3 ABG 24.9 mEq/l (22.0-26.0); Methemoglobin ABG 0.3 %THb (0-1.5); Modified Allen's Test Unable to perform; Oxygen Content ABG 10.6 %vol (16.0-22.0); Oxyhemoglobin 91.9 % THb (90.0-100.0); PCO2 ABG 37.4 mmHg (35.0-45.0); PO2 ABG 71.3 mmHg (80.0-100.0); PO2 FiO2 Ratio Arterial Blood 2.38 %; Reduced Hemoglobin 6.5 %THb (0-5.0); Site Drawn RIGHT RADIAL; Total Hemoglobin 8.1 g/dL (12.0-18.0); pH ABG 7.442 (7.350-7.450)
[2021-12-02 05:08] LABS: Arterial Blood Gas PEEP 8 cmH2O; Arterial Blood Gas Tidal Volume 500 ml; Arterial Blood Gas Vent Mode CMV; Arterial Blood Gas Ventilator rate 24 /MIN
[2021-12-02 05:22] LABS: Hematocrit 29.3 % (42.0-52.0); Hemoglobin 8.1 g/dL (14.0-18.0); Mean Corpuscular HGB Conc 27.6 g/dl (32-36); Mean Corpuscular Hemoglobin 21.8 pg (26-34); Mean Corpuscular Volume 78.8 fl (80-100); Mean Platelet Volume 10.6 fl (7.4-10.4); Platelet Count Result 491 k/mm3 (150-375); Red Blood Count 3.72 M/mm3 (4.6-6.20); Red Cell Distribution Width 22.3 % (11.5-14.5); White Blood Count 15.7 K/mm3 (4.5-10.0)
[2021-12-02 05:32] LABS: Alanine Aminotransferase 23 U/L (6-50); Albumin Level 3.4 g/dL (3.5-5.1); Alkaline Phosphatase 134 U/L (38-126); Anion Gap 7 mmol/L (8-16); Aspartate Amino Transferase 46 U/L (17-59); Bilirubin,Total 0.6 mg/dL (0.2-1.3); Blood Urea Nitrogen 50 mg/dL (9-20); Calcium 8.2 mg/dL (8.4-10.2); Carbon Dioxide 25 mmol/L (22-30); Chloride 116 mmol/L (98-107); Estimated CRCL calculation 54 ml/min; Estimated Glomerular Filt Rate > 60; Glucose 181 mg/dL (65-110); Magnesium 2.4 mg/dL (1.6-2.3); Phosphorus 2.8 mg/dL (2.5-4.5); Potassium 3.9 mmol/L (3.4-5.0); Sodium 148 mmol/L (137-145)
[2021-12-02] MEDS: CENTRAL LINE FLUSH 10 ML IV PUSH ×3 (05:33→20:21)
--- NOTE | 2021-12-02 07:58 | PM.IMPN ---
Progress Note: A&P Assessment and Plan (1) Acute respiratory failure: Code(s): J96.00 - Acute respiratory failure, unspecified whether with hypoxia or hypercapnia Status: Acute Assessment and Plan: Acute respiratory failure secondary to pulmonary edema from CHF, NSTEMI and possibly from COPD. Patient was intubated in the field on 11/22/21. CT chest showed no PE but mild pulmonary edema. He was not tolerating weaning trials earlier. Weaned off sedation but was not arousable. Appears mental status slightly better. FiO2 at 30% with PEEP 8. Continue supportive care. Decrease peep? 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 Discussed. (2) Fever: Code(s): R50.9 - Fever, unspecified Status: Acute Assessment and Plan: Patient has developed fevers that are resistant to antipyretic medications and we have had to resort to cooling blanket. Chest x-ray shows persistent opacities in bilateral lung bases but improved overall with intermittent Lasix dosing. Repeat cultures obtained showing no growth; UCx NGTD. Antibiotics resumed 12/01. Limited CT brain showing no acute findings. CT Ch/A/P showing bilateral lower lobe airspace disease but no obvious source. Consider PNA but vent settings are minimal. Doubt drug fever. Consider meningitis but seems less likely. Consider fungal infection. Wait for BCx results. Continue IV abx. (3) Non-STEMI (non-ST elevated myocardial infarction): Code(s): I21.4 - Non-ST elevation (NSTEMI) myocardial infarction Status: Acute Assessment and Plan: Per patient's pharmacy and patient's he has not taken any medication for months now. He does continue to smoke. Old records state the patient has a stent in his right groin and has history of CAD with coronary stent placed. Elevated troponins here with abnormal EKG but no acute elevation. Echo showing she EF 35-40% with dyskinetic apex and abnormal diastolic function. Cardiology following but there is no plan for angiogram at this time. Heparin discontinued. Continue aspirin, statin, beta-raquel and Cozaar. Appreciate Cardiology input. (4) CHF (congestive heart failure): Qualifiers: Heart failure chronicity: unspecified Heart failure type: unspecified Qualified Code(s): I50.9 - Heart failure, unspecified Code(s): I50.9 - Heart failure, unspecified Status: Acute Assessment and Plan: CT scan shows pulmonary edema and pleural effusion. Echo as mentioned above. Tolerated intermittent Lasix dosing. CT chest 12/01 showing moderate right and mild left pleural effusions and atelectasis but no pulmonary edema. Continue to follow. (5) Atrial fibrillation with RVR: Code(s): I48.91 - Unspecified atrial fibrillation Status: Acute Assessment and Plan: Patient went into AFib/Flutter with RVR. Heparin discontinued due to anemia. He remains on aspirin. He continues to have intermittent AFib/Flutter but heart rate remains well controlled with Lopressor. Echo as mentioned above. TSH normal. Cardiology following. Appreciate their input. Lovenox therapeutic dose daily started. Hgb low but stable. Monitor HH closely. (6) KIMBERLY (acute kidney injury): Code(s): N17.9 - Acute kidney failure, unspecified Status: Acute Assessment and Plan: Patient with probable mild CKD with creatinine running 1.2-1.4 range. Suspect mild ATN with increase in Cr related to the Lasix and/or from fevers. Creatinine better today to 1.2. Will follow. (7) Anemia: Code(s): D64.9 - Anemia, unspecified Status: Acute Assessment and Plan: Acute on chronic anemia. Hgb 7-8 range on admission but Hgb did drop to 6.9. No obvious sign of bleeding. PPI changed to IV q.12 hours. Heparin infusion was discontinued. Patient was transfused 1 unit of PRBC on 11/25. Hgb low but stable in the 8 range since. Continue to monitor hemoglobin. Tolerating Lovenox so far (8) Hypernatremia: Co
[2021-12-02] MEDS: polyethylene glycoL 3350 17 GM POWD.PACK PO (09:14)
[2021-12-02] MEDS: PANTOPRAZOLE SODIUM IV 40 MG VIAL IV PUSH ×2 (09:14→20:21)
[2021-12-02] MEDS: MINERAL OIL/WHITE PETROLATUM OINTMENT 1 APPLIC EACH EYE ×2 (09:14→20:20)
[2021-12-02] MEDS: METOPROLOL TARTRATE 12.5 MG TABLET PO ×2 (09:17→20:20)
[2021-12-02] MEDS: SIMVASTATIN 10 MG TABLET PO (09:17)
[2021-12-02] MEDS: ENOXAPARIN 100 MG/ML SYRINGE 90 MG SUB-Q (09:18)
[2021-12-02] MEDS: LOSARTAN POTASSIUM 12.5 MG TABLET PO (09:18)
[2021-12-02] MEDS: ASPIRIN 325 MG TABLET FEED TUBE (09:19)
--- NOTE | 2021-12-02 09:23 | PM.PNCARD ---
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 He has not had any the complications of his event. Remains intubated in the ICU. Now has concerning fever of unknown origin. No additional cardiac recommendations to make at this time Tawanda Snyder MD [facility] Subjective Date/time seen: date of service:12/02/21 09:23 Interval history: Follow-up visit in this 66-year-old patient with: Acute coronary syndrome being treated medically / conservatively because of overall very poor condition and very difficult if not impossible vascular access. Patient remains intubated on ventilator support. Clearly has significant chronic lung disease as well. this patient now has fever of unknown origin as well a temperature of over 102 yesterday 101.5 this morning he has been strong cultured. Exam Const: Other: Sedated obese white male a double amputee multiple tattoo HENMT: Mouth: Yes moist mucous membranes Eyes: Sclera: sclerae normal Neck: Neck: supple Resp: Other: breath sounds relatively clear this morning Cardio: Rate: regular rate Rhythm: regular rhythm Other: no murmur no gallop GI: GI Palp: Yes Soft to palpation Auscultation: normal bowel sounds Neuro: Other: sedated on the ventilator Extrem: Other: double amputee Objective Data Vital Signs Vital Signs: Vital Signs - 24 hr 12/01/21 10:00 12/01/21 10:00 12/01/21 11:26 Temperature 38.8 C H Pulse Rate 86 86 86 Respiratory Rate 25 H Blood Pressure 102/59 L Pulse Oximetry 100 98 Oxygen Delivery Mechanical Ventilation Fraction of Inspired Oxygen 12/01/21 12:00 12/01/21 12:00 12/01/21 12:00 Temperature 38.2 C H Pulse Rate 80 80 Respiratory Rate 24 H Blood Pressure 85/67 L Pulse Oximetry 99 99 Oxygen Delivery Mechanical Ventilation Fraction of Inspired Oxygen 12/01/21 12:00 12/01/21 13:17 12/01/21 14:00 Temperature Pulse Rate 77 79 Respiratory Rate Blood Pressure Pulse Oximetry 98 Oxygen Delivery Mechanical Ventilation Fraction of Inspired Oxygen 30 12/01/21 14:00 12/01/21 14:57 12/01/21 16:19 Temperature 37.6 C Pulse Rate 79 82 116 H Respiratory Rate 17 42 H Blood Pressure 109/64 Pulse Oximetry 96 97 Oxygen Delivery Mechanical Ventilation Fraction of Inspired Oxygen 30 12/01/21 16:46 12/01/21 17:00 12/01/21 16:00 Temperature Pulse Rate 112 H 99 94 Respiratory Rate 33 H Blood Pressure Pulse Oximetry 96 Oxygen Delivery Mechanical Ventilation Fraction of Inspired Oxygen 30 12/01/21 16:00 12/01/21 16:00 12/01/21 18:24 Temperature 38.8 C H Pulse Rate Respiratory Rate Blood Pressure Pulse Oximetry 96 Oxygen Delivery Mechanical Ventilation Fraction of Inspired Oxygen 30 30 12/01/21 16:00 12/01/21 18:00 12/01/21 19:04 Temperature 37.7 C H 38.7 C H Pulse Rate 106 H 84 78 Respiratory Rate 23 H 28 H 25 H Blood Pressure 117/75 99/64 L Pulse Oximetry 99 99 Oxygen Delivery Fraction of Inspired Oxygen 12/01/21 18:00 12/01/21 19:40 12/01/21 20:08 Temperature Pulse Rate 85 76 78 Respiratory Rate 24 H Blood Pressure 68/48 L Pulse Oximetry Oxygen Delivery Fraction of Inspired Oxygen 12/01/21 20:14 12/01/21 21:00 12/01/21 21:19 Temperature Pulse Rate 77 82 76 Respiratory Rate Blood Pressure 108/62 Pulse Oximetry 98 Oxygen Delivery Mechanical Ventilation Fraction of Inspired Oxygen 30 12/01/21 19:43 12/01/21 20:00 12/01/21 21:00 Temperature 38.9 C H 38.6 C H Pulse Rate 76 76 76 Respiratory Rate 24 H 26 H 25 H Blood Pressure 68/48 L 115/67 Pulse Oximetry 97 98 Oxygen Delivery Fraction of Inspired Oxyge
--- NOTE | 2021-12-02 09:36 | WPDINTPN ---
Progress Note: A&P Assessment and Plan (1) Fever: Code(s): R50.9 - Fever, unspecified Status: Acute Assessment and Plan: 11/29/2021 started to spike fevers, -remains febrile overnight and this morning, requiring cooling blanket and Tylenol -11/30 blood cultures: Preliminary results are negative x2 -11/30: Sputum culture: Growth of normal oropharyngeal jay -11/30: Urine cultures negative -antibiotics were discontinued on 11/29/2021 -patient started on vancomycin and cefepime (12/01), add Levaquin -obtained upper extremity venous Dopplers PICC line in place since 11/24/2021, no signs of infection around the PICC. This may have to be removed as patient is still febrile Fungal infection could sometimes cause high fevers, but blood cultures are negative -patient does not have any nuchal rigidity, does follow commands, meningitis seems unlikely 12/01/2021 CT chest, abdomen and pelvis: IMPRESSION:? Moderate right and mild left pleural effusions, Bilateral lower lobe dependent atelectasis. Mild cardiomegaly. ET and NG tubes in satisfactory position Cholelithiasis Borderline splenomegaly.8 mm lower pole right renal calculus. Bilateral perinephric stranding, nonspecific. Retained cecal mesentery. Normal appendix. 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 -patient was in acute respiratory failure secondary to pulmonary edema, congestive heart failure and COPD exacerbation -patient has been failing weaning trial since 11/24/2021 -patient was restarted on Versed infusion, is following commands this morning on 12/02 - Full mechanical ventilation support to prevent hypoxemia/hypercarbia and end organ damage. -CMV mode, 40% FiO2 and peep of 8, he did tolerate ASV on 11/30/2021, But did not tolerate ASV on 12/01/2021 Currently on Versed infusion only -chest x-ray this morning: Minimal bibasilar infiltrate and/atelectasis and small bilateral pleural effusions; little interval change since 12/01/2021 Bilateral hyperinflation? Patient responded well to diuresis on 11/30 and 12/01. -blood pressure is borderline, will hold diuresis today -continue bronchodilators 11/23/2021 CTA PE protocol 1. No pulmonary embolus. Sensitivity is mildly decreased by motion artifact. 2. Mild pulmonary edema. 3. Small pleural effusions. 4. Mild emphysema. 5. Cardiomegaly. 6. Cirrhosis of the liver. (3) Non-STEMI (non-ST elevated myocardial infarction): Code(s): I21.4 - Non-ST elevation (NSTEMI) myocardial infarction Status: Acute Assessment and Plan: Per patient's pharmacy and patient's he has not taken any medication for months now. He does continue to smoke -Records from [facility] states the patient has a stent in his right groin and has history of coronary disease with a stent in his heart but no further details -Elevated troponin but EKG did not show any ST elevation but was abnormal -Cardiology following there is no plan for angiogram at this time. -11/25 Discontinued heparin drip due to drop in hemoglobin until hemoglobin is stable -Continue aspirin and statin, beta-raquel and low-dose Cozaar if blood pressures permit -Request faxed to obtain records from [facility] and [facility] also but no records obtained till now. Will resend requested -Cardiology recommends conservative management this time but will evaluate for cardiac catheterization once records are obtained from outside hospital 11/23/2021 Echocardiogram reviewed 1. Left ventricular systolic f
--- NOTE | 2021-12-02 10:00 | P.PNNP_ITS ---
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 No ureteral calculus or hydroureteronephrosis of either kidney * responsive to diuretic therapy * folllow repeat labs and UOP (2) Hypernatremia: Code(s): E87.0 - Hyperosmolality and hypernatremia Status: Acute Assessment and Plan: * likely due to need for diuresis and insensible losses (i.e. fevers) resulting in significant free water deficit * titrate free water flushes to compensate * given issues with CHF, would try to limit D5W IVFs if possible * follow trend of sodium (3) Acute respiratory failure: Code(s): J96.00 - Acute respiratory failure, unspecified whether with hypoxia or hyp ercapnia Status: Acute Assessment and Plan: * intubated in the field by EMS (on 11/22/21) * thought to be secondary to pulmonary edema/CHF and possible COPD * not making much progress with regard to ventilator weaning * responsive to diuretic therapy * however, lack of improvement in mental status precludes ventilator weaning * continue supportive therapy (4) Fever: Code(s): R50.9 - Fever, unspecified Status: Acute Assessment and Plan: * as noted in the last 24 - 48 hours * follow culture data * repeat imaging being planned * on antibiotics (5) Non-STEMI (non-ST elevated myocardial infarction): Code(s): I21.4 - Non-ST elevation (NSTEMI) myocardial infarction Status: Acute Assessment and Plan: * elevated troponins noted * conservative therapy at this time * Cardiology following (6) CHF (congestive heart failure): Qualifiers: Heart failure chronicity: unspecified Heart failure type: unspecified Qualified Code(s): I50.9 - Heart failure, unspecified Code(s): I50.9 - Heart failure, unspecified Status: Acute Assessment and Plan: * follow I/Os, daily weights, and respiratory status * good response with IV diuretics * Cardiology following as well (7) Anemia: Code(s): D64.9 - Anemia, unspecified Status: Acute Assessment and Plan: * fluctuating H/H noted * depending on trend of hemoglobin, consider ESAs * follow H/H Will continue to follow. Subjective Date/time seen: 12/02/21 10:00 Remains intubated and sedated at the time of my visit; continues to have reasonable urine output in response to IV diuretics and renal function remains stable if not improved with current therapy; sodium also doing better as well; still with high fevers necessitating cooling blanket; no other issues/events to report. Exam Narrative: General: WD/WN male in NAD; intubated/sedated Heart: normal S1 and S2; no rub Lungs: coarse and decreased at bases Abdomen: soft, nontender, nondistended, positive bowel sounds Extremities: no cyanosis or clubbing; no edema; s/p bilateral AKAs Skin: warm and dry Objective Data Vital Signs Vital Signs:
--- NOTE | 2021-12-02 10:00 | PM.PNNEP ---
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 No ureteral calculus or hydroureteronephrosis of either kidney responsive to diuretic therapy folllow repeat labs and UOP (2) Hypernatremia: Code(s): E87.0 - Hyperosmolality and hypernatremia Status: Acute Assessment and Plan: likely due to need for diuresis and insensible losses (i.e. fevers) resulting in significant free water deficit titrate free water flushes to compensate given issues with CHF, would try to limit D5W IVFs if possible follow trend of sodium (3) Acute respiratory failure: Code(s): J96.00 - Acute respiratory failure, unspecified whether with hypoxia or hypercapnia Status: Acute Assessment and Plan: intubated in the field by EMS (on 11/22/21) thought to be secondary to pulmonary edema/CHF and possible COPD not making much progress with regard to ventilator weaning responsive to diuretic therapy however, lack of improvement in mental status precludes ventilator weaning continue supportive therapy (4) Fever: Code(s): R50.9 - Fever, unspecified Status: Acute Assessment and Plan: as noted in the last 24 - 48 hours follow culture data repeat imaging being planned on antibiotics (5) Non-STEMI (non-ST elevated myocardial infarction): Code(s): I21.4 - Non-ST elevation (NSTEMI) myocardial infarction Status: Acute Assessment and Plan: elevated troponins noted conservative therapy at this time Cardiology following (6) CHF (congestive heart failure): Qualifiers: Heart failure chronicity: unspecified Heart failure type: unspecified Qualified Code(s): I50.9 - Heart failure, unspecified Code(s): I50.9 - Heart failure, unspecified Status: Acute Assessment and Plan: follow I/Os, daily weights, and respiratory status good response with IV diuretics Cardiology following as well (7) Anemia: Code(s): D64.9 - Anemia, unspecified Status: Acute Assessment and Plan: fluctuating H/H noted depending on trend of hemoglobin, consider ESAs follow H/H Will continue to follow. Subjective Date/time seen: 12/02/21 10:00 Remains intubated and sedated at the time of my visit; continues to have reasonable urine output in response to IV diuretics and renal function remains stable if not improved with current therapy; sodium also doing better as well; still with high fevers necessitating cooling blanket; no other issues/events to report. Exam Narrative: General: WD/WN male in NAD; intubated/sedated Heart: normal S1 and S2; no rub Lungs: coarse and decreased at bases Abdomen: soft, nontender, nondistended, positive bowel sounds Extremities: no cyanosis or clubbing; no edema; s/p bilateral AKAs Skin: warm and dry Objective Data Vital Signs Vital Signs: Vital Signs Temp Pulse Resp BP Pulse Ox O2 Del Method FiO2 12/02/21 10:00 84 25 H 12/02/21 10:00 38.4 C H 84 25 H 103/65 98 12/02/21 10:00 84 12/02/21 10:11 83 98 Mechanical Ventilation 12/02/21 08:00 30 12/02/21 08:00 98 Mechanical Ventilation 12/02/21 09:07 88 98 Mechanical Ventilation 12/02/21 08:00 86 25 H 12/02/21 08:00 89 12/02/21 09:17 90 12/02/21 08:00 38.6 C H 86 25 H 120/69 96
[2021-12-02] MEDS: BISACODYL 10 MG SUPPOSITORY RECTAL (10:56)
[2021-12-02] MEDS: INSULIN ASPART (*BKC) 100 UNITS/ML SUB-Q (12:03)
[2021-12-02 12:10] LABS: Glucose Point of Care 202 mg/dl (65-105)
--- NOTE | 2021-12-02 13:19 | PCNFU ---
Nutrition Follow-Up Complete: Inadequate Oral Intake as related to mechanical ventilation as evidenced by NPO Goal: Meet estimated nutritional needs Patient is progressing towards goal. We will continue current goal. Pt current nutrition is Vital AF 1.2 at 60 ml/hr over 22 hours. Last recorded weight is 88.7 kg, down from 94.65 kg on admit. Bowel Motility: No BM reported since 11/28 Labs Reviewed:Mg 2.4, BUN 50, Glu 181, Hct 29.3,Hgb 8.1 Meds Noted:Fentanyl, Versed, Lovenox, Reglan, Miralax, Lactulose, Lasix, Protonix Skin: WNL Additional Notes: Patient seen today for nutrition follow up, patient remains on mechanical vent and tube feedings of Vital AF 1.2 at 60 ml/hr and tolerating per nursing. Free water flush 150 ml q 4 hours. US pending. Chest Xray noted per MD improving. Agree with diet orders. Monitoring: In ICU rounds daily and reassessing every Sunday and Sunday.
[2021-12-02 17:37] LABS: Basophils Absolute Auto 0.1 K/mm3 (0.0-0.1); Basophils Percent Auto 0.4 % (0.2-1.2); Eosinophils Absolute Auto 0.5 K/mm3 (0-0.3); Eosinophils Percent Auto 3.8 % (0-4.4); Hematocrit 27.5 % (42.0-52.0); Hemoglobin 7.6 g/dL (14.0-18.0); Immature Granulocyte Absolute 0.09 K/mm3 (0.00-0.031); Immature Granulocyte Percent A 0.6 % (0-0.5); Lymphocytes Absolute Auto 1.58 K/mm3 (0.9-3.2); Lymphocytes Percent Auto 11.2 % (18.3-44.2); Mean Corpuscular HGB Conc 27.6 g/dl (32-36); Mean Corpuscular Hemoglobin 21.5 pg (26-34); Mean Corpuscular Volume 77.9 fl (80-100); Mean Platelet Volume 10.4 fl (7.4-10.4); Monocytes Absolute Auto 1.1 K/mm3 (0.1-0.6); Monocytes Percent Auto 8.1 % (2.6-8.5); Neutrophils Absolute Auto 10.8 K/mm3 (1.3-6.7); Neutrophils Percent Auto 75.9 % (45.5-73.1); Platelet Count Result 439 k/mm3 (150-375); Red Blood Count 3.53 M/mm3 (4.6-6.20); Red Cell Distribution Width 22.1 % (11.5-14.5); White Blood Count 14.2 K/mm3 (4.5-10.0)
[2021-12-02] MEDS: HEPARIN SOD/D5W 100 UNITS/ML 25,000 UNITS/250 ML BAG 14 UNITS IV CONT (17:38)
[2021-12-02 17:53] LABS: INR 1.3
[2021-12-02 18:07] LABS: Glucose Point of Care 149 mg/dl (65-105)
[2021-12-02] MEDS: MIDAZOLAM 100MG/NS 100ML(*CRX) 100 MG/100 ML BAG IV CONT (18:30)
[2021-12-02 19:56] LABS: Anisocytosis 2+ (NORMAL); Hypochromasia 1+ (NORMAL); Platelet Estimate Increased (Adequate)
[2021-12-02 19:57] LABS: Stomatocytes 1+ (NORMAL)
[2021-12-02] MEDS: SENNA/DOCUSATE SODIUM TABLET 1 TAB PO (20:20)
[2021-12-02 23:39] LABS: Glucose Point of Care 154 mg/dl (65-105)
[2021-12-03] VITALS (33 sets, daily range): BP systolic 86–107; BP diastolic 45–67; PULSE 66–102; RESP 14–34; TEMP 37.4–38.3; O2SAT 97–100
[2021-12-03] MEDS: METOCLOPRAMIDE HCL 10 MG/10 ML SOLN UDC FEED TUBE ×2 (00:20→06:16)
[2021-12-03 00:55] LABS: Partial Thromboplastin Time 113.2 SECONDS (22.3-36.8)
[2021-12-03 04:40] LABS: Basophils Absolute Auto 0.1 K/mm3 (0.0-0.1); Basophils Percent Auto 0.5 % (0.2-1.2); Eosinophils Absolute Auto 0.5 K/mm3 (0-0.3); Hematocrit 25.9 % (42.0-52.0); Hemoglobin 7.3 g/dL (14.0-18.0); Immature Granulocyte Absolute 0.06 K/mm3 (0.00-0.031); Immature Granulocyte Percent A 0.5 % (0-0.5); Lymphocytes Absolute Auto 1.57 K/mm3 (0.9-3.2); Lymphocytes Percent Auto 12.5 % (18.3-44.2); Mean Corpuscular HGB Conc 28.2 g/dl (32-36); Mean Corpuscular Hemoglobin 21.9 pg (26-34); Mean Corpuscular Volume 77.8 fl (80-100); Mean Platelet Volume 11.3 fl (7.4-10.4); Monocytes Absolute Auto 1.1 K/mm3 (0.1-0.6); Monocytes Percent Auto 8.7 % (2.6-8.5); Neutrophils Absolute Auto 9.3 K/mm3 (1.3-6.7); Neutrophils Percent Auto 73.8 % (45.5-73.1); Platelet Count Result 470 k/mm3 (150-375); Red Blood Count 3.33 M/mm3 (4.6-6.20); Red Cell Distribution Width 22.2 % (11.5-14.5); White Blood Count 12.6 K/mm3 (4.5-10.0)
[2021-12-03 04:56] LABS: Alanine Aminotransferase 21 U/L (6-50); Albumin Level 3.3 g/dL (3.5-5.1); Alkaline Phosphatase 127 U/L (38-126); Anion Gap 7 mmol/L (8-16); Aspartate Amino Transferase 38 U/L (17-59); Bilirubin,Total 0.3 mg/dL (0.2-1.3); Blood Urea Nitrogen 46 mg/dL (9-20); Calcium 8.2 mg/dL (8.4-10.2); Carbon Dioxide 24 mmol/L (22-30); Chloride 115 mmol/L (98-107); Estimated CRCL calculation 54 ml/min; Estimated Glomerular Filt Rate > 60; Glucose 149 mg/dL (65-110); Magnesium 2.6 mg/dL (1.6-2.3); Phosphorus 3.4 mg/dL (2.5-4.5); Sodium 146 mmol/L (137-145)
[2021-12-03 05:13] LABS: Anisocytosis 3+ (NORMAL); Hypochromasia 2+ (NORMAL); Platelet Estimate Increased (Adequate); Stomatocytes 1+ (NORMAL)
[2021-12-03 05:36] LABS: Alveolar/Arterial O2 Gradient 82.1 mmHg; Base Excess ABG -2.2 mEq/l (+/-2.0); Carboxyhemoglobin 1.5 % THb (0-2.0); Fractional Inspired Oxygen 30 %; HCO3 ABG 22.2 mEq/l (22.0-26.0); Methemoglobin ABG 0.1 %THb (0-1.5); Oxygen Content ABG 9.5 %vol (16.0-22.0); Oxyhemoglobin 94.5 % THb (90.0-100.0); PCO2 ABG 35.6 mmHg (35.0-45.0); Reduced Hemoglobin 3.9 %THb (0-5.0); pH ABG 7.412 (7.350-7.450)
[2021-12-03 05:38] LABS: Arterial Blood Gas Vent Mode ASV; Device VENTILATOR; Modified Allen's Test Pass; Site Drawn LEFT RADIAL
[2021-12-03 05:39] LABS: Arterial Blood Gas PEEP 8 cmH2O
[2021-12-03] MEDS: CENTRAL LINE FLUSH 10 ML IV PUSH ×3 (06:15→20:01)
[2021-12-03 07:27] LABS: Partial Thromboplastin Time 69.7 SECONDS (22.3-36.8)
[2021-12-03] MEDS: FUROSEMIDE INJ 40 MG/4 ML VIAL 20 MG IV PUSH (07:55)
[2021-12-03] MEDS: HEPARIN SODIUM 5,000 UNITS/ML VIAL 3000 UNITS IV PUSH ×2 (07:57→14:52)
--- NOTE | 2021-12-03 08:03 | WPDINTPN ---
Progress Note: A&P Assessment and Plan (1) Fever: Code(s): R50.9 - Fever, unspecified Status: Acute Assessment and Plan: 11/30/2021 started to spike fevers, -remains febrile overnight and this morning, requiring cooling blanket and Tylenol -11/30 blood cultures: Preliminary results are negative x2 -11/30: Sputum culture: Growth of normal oropharyngeal jay -11/30: Urine cultures negative -antibiotics were discontinued on 11/29/2021 -patient started on vancomycin and cefepime (12/01), Levaquin (12/02) -12/02/2021 upper extremity venous Dopplers: Thrombus in the left basilic, cephalic and brachial veins PICC line in place since 11/24/2021, no signs of infection around the PICC. This may have to be removed as patient is still febrile Fungal infection could sometimes cause high fevers, but blood cultures are negative -patient does not have any nuchal rigidity, does follow commands, meningitis seems unlikely 12/01/2021 CT chest, abdomen and pelvis: IMPRESSION:? Moderate right and mild left pleural effusions, Bilateral lower lobe dependent atelectasis. Mild cardiomegaly. ET and NG tubes in satisfactory position Cholelithiasis Borderline splenomegaly.8 mm lower pole right renal calculus. Bilateral perinephric stranding, nonspecific. Retained cecal mesentery. Normal appendix. 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 -patient was in acute respiratory failure secondary to pulmonary edema, congestive heart failure and COPD exacerbation -patient has been failing weaning trial since 11/24/2021 -patient was restarted on Versed infusion, is following commands this morning on 12/02 - Full mechanical ventilation support to prevent hypoxemia/hypercarbia and end organ damage. -CMV mode, 40% FiO2 and peep of 8, he did tolerate ASV on 11/30/2021, But did not tolerate ASV on 12/01/2021 Currently on Versed infusion only, have asked the bedside RN to discontinue Versed infusion, to evaluate for SBT -will add small dose of Seroquel 12.5 mg q.12 hours -chest x-ray this morning: No significant change since 12/02/2021?. Minimal bibasilar infiltrate and/atelectasis and small bilateral pleural effusions; little interval change since 12/01/2021 Bilateral hyperinflation? Patient responded well to diuresis on 11/30, 12/01 Will diurese today -continue bronchodilators 11/23/2021 CTA PE protocol 1. No pulmonary embolus. Sensitivity is mildly decreased by motion artifact. 2. Mild pulmonary edema. 3. Small pleural effusions. 4. Mild emphysema. 5. Cardiomegaly. 6. Cirrhosis of the liver. (3) Non-STEMI (non-ST elevated myocardial infarction): Code(s): I21.4 - Non-ST elevation (NSTEMI) myocardial infarction Status: Acute Assessment and Plan: Per patient's pharmacy and patient's he has not taken any medication for months now. He does continue to smoke -Records from [facility] states the patient has a stent in his right groin and has history of coronary disease with a stent in his heart but no further details -Elevated troponin but EKG did not show any ST elevation but was abnormal -Cardiology following there is no plan for angiogram at this time. -11/25 Discontinued heparin drip due to drop in hemoglobin until hemoglobin is stable -hold aspirin -continue statin, beta-raquel and low-dose Cozaar if blood pressures permit -Request faxed to obtain records from [facility] and [facility] also but no records obtained till now. Will resend requested -Cardiology recommend
[2021-12-03] MEDS: QUEtiapine FUMARATE 12.5 MG TABLET PO ×2 (09:03→20:01)
[2021-12-03] MEDS: PANTOPRAZOLE SODIUM IV 40 MG VIAL IV PUSH ×2 (09:04→20:01)
[2021-12-03] MEDS: MINERAL OIL/WHITE PETROLATUM OINTMENT 1 APPLIC EACH EYE ×2 (09:04→20:00)
[2021-12-03] MEDS: polyethylene glycoL 3350 17 GM POWD.PACK PO (09:04)
[2021-12-03] MEDS: METOPROLOL TARTRATE 12.5 MG TABLET PO (09:04)
[2021-12-03] MEDS: LACTULOSE 20 GM/30 ML UDC PO (09:05)
[2021-12-03] MEDS: SIMVASTATIN 10 MG TABLET PO (09:05)
[2021-12-03] MEDS: LOSARTAN POTASSIUM 12.5 MG TABLET PO (09:05)
--- NOTE | 2021-12-03 10:29 | PM.PNNEP ---
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 No ureteral calculus or hydroureteronephrosis of either kidney responsive to diuretic therapy folllow repeat labs and UOP (2) Hypernatremia: Code(s): E87.0 - Hyperosmolality and hypernatremia Status: Acute Assessment and Plan: likely due to need for diuresis and insensible losses (i.e. fevers) resulting in significant free water deficit titrate free water flushes to compensate given issues with CHF, would try to limit D5W IVFs if possible follow trend of sodium (3) Acute respiratory failure: Code(s): J96.00 - Acute respiratory failure, unspecified whether with hypoxia or hypercapnia Status: Acute Assessment and Plan: intubated in the field by EMS (on 11/22/21) thought to be secondary to pulmonary edema/CHF and possible COPD not making much progress with regard to ventilator weaning responsive to diuretic therapy however, lack of improvement in mental status precludes ventilator weaning continue supportive therapy (4) Fever: Code(s): R50.9 - Fever, unspecified Status: Acute Assessment and Plan: as noted in the last 24 - 48 hours follow culture data repeat imaging being planned on antibiotics (5) Non-STEMI (non-ST elevated myocardial infarction): Code(s): I21.4 - Non-ST elevation (NSTEMI) myocardial infarction Status: Acute Assessment and Plan: elevated troponins noted conservative therapy at this time Cardiology following (6) CHF (congestive heart failure): Qualifiers: Heart failure chronicity: unspecified Heart failure type: unspecified Qualified Code(s): I50.9 - Heart failure, unspecified Code(s): I50.9 - Heart failure, unspecified Status: Acute Assessment and Plan: follow I/Os, daily weights, and respiratory status good response with IV diuretics Cardiology following as well (7) Anemia: Code(s): D64.9 - Anemia, unspecified Status: Acute Assessment and Plan: fluctuating H/H noted depending on trend of hemoglobin, consider ESAs follow H/H Not much else to add at this time -- will continue to follow from a distance. Subjective Date/time seen: 12/03/21 10:29 Remains on intubated and on ventilator support; still with low grade fevers with cooling blanket in place; reasonable urine output noted; following commands and plan for breathing trial later today; no other issues/events noted overnight or earlier this AM. Exam Narrative: General: WD/WN male in NAD; intubated Heart: normal S1 and S2; no rub Lungs: coarse and decreased at bases Abdomen: soft, nontender, nondistended, positive bowel sounds Extremities: no cyanosis or clubbing; no edema; s/p bilateral AKAs Skin: warm and intact Objective Data Vital Signs Vital Signs: Vital Signs Temp Pulse Resp BP Pulse Ox O2 Del Method FiO2 12/03/21 10:00 37.5 C 80 21 H 93/60 L 100 12/03/21 08:00 30 12/03/21 09:25 77 29 H 12/03/21 08:00 Mechanical Ventilation 30 12/03/21 09:04 75 12/03/21 08:46 78 99 Mechanical Ventilation 30 12/03/21 08:00 37.7 C H 76 25 H 107/62 100 12/03/21 07:51 75 25 H 12/03/21 06:00 79 12/03/21 06:00 79 14 101/67 99 12/03/21 05:39 78 99 Mechanical Ventilation 30
--- NOTE | 2021-12-03 10:29 | P.PNNP_ITS ---
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 No ureteral calculus or hydroureteronephrosis of either kidney * responsive to diuretic therapy * folllow repeat labs and UOP (2) Hypernatremia: Code(s): E87.0 - Hyperosmolality and hypernatremia Status: Acute Assessment and Plan: * likely due to need for diuresis and insensible losses (i.e. fevers) resulting in significant free water deficit * titrate free water flushes to compensate * given issues with CHF, would try to limit D5W IVFs if possible * follow trend of sodium (3) Acute respiratory failure: Code(s): J96.00 - Acute respiratory failure, unspecified whether with hypoxia or hyp ercapnia Status: Acute Assessment and Plan: * intubated in the field by EMS (on 11/22/21) * thought to be secondary to pulmonary edema/CHF and possible COPD * not making much progress with regard to ventilator weaning * responsive to diuretic therapy * however, lack of improvement in mental status precludes ventilator weaning * continue supportive therapy (4) Fever: Code(s): R50.9 - Fever, unspecified Status: Acute Assessment and Plan: * as noted in the last 24 - 48 hours * follow culture data * repeat imaging being planned * on antibiotics (5) Non-STEMI (non-ST elevated myocardial infarction): Code(s): I21.4 - Non-ST elevation (NSTEMI) myocardial infarction Status: Acute Assessment and Plan: * elevated troponins noted * conservative therapy at this time * Cardiology following (6) CHF (congestive heart failure): Qualifiers: Heart failure chronicity: unspecified Heart failure type: unspecified Qualified Code(s): I50.9 - Heart failure, unspecified Code(s): I50.9 - Heart failure, unspecified Status: Acute Assessment and Plan: * follow I/Os, daily weights, and respiratory status * good response with IV diuretics * Cardiology following as well (7) Anemia: Code(s): D64.9 - Anemia, unspecified Status: Acute Assessment and Plan: * fluctuating H/H noted * depending on trend of hemoglobin, consider ESAs * follow H/H Not much else to add at this time -- will continue to follow from a distance. Subjective Date/time seen: 12/03/21 10:29 Remains on intubated and on ventilator support; still with low grade fevers with cooling blanket in place; reasonable urine output noted; following commands and plan for breathing trial later today; no other issues/events noted overnight or earlier this AM. Exam Narrative: General: WD/WN male in NAD; intubated Heart: normal S1 and S2; no rub Lungs: coarse and decreased at bases Abdomen: soft, nontender, nondistended, positive bowel sounds Extremities: no cyanosis or clubbing; no edema; s/p bilateral AKAs Skin: warm and intact Objective Data Vital Signs Vital Signs:
--- NOTE | 2021-12-03 10:32 | PCFNICU ---
ICU Rounding Note: Pt current nutrition is Vital AF 1.2 at 60 ml/hr over 22 hours. Last recorded weight is 94.4 kg, down from 96.6 kg on admit Bowel Motility:+BM reported 12/02 Labs Reviewed:Mg 2.6, BUN 46, Glu 149, Na 146, Hct 25.9,Hgb 7.3 Meds Noted:Fentanyl, Versed, Lovenox, Reglan, Miralax, Lactulose, Lasix, Protonix, Zocor, Seroquel. Skin: maceration to buttock. Additional Notes: Patient remains on mechanical vent, plans to decrease sedation today, possible breathing trail. Patient is tolerating tube feedings, free water flush remains at 150 ml q 4 hours. Agree with diet orders. Following daily in ICU rounds and reassessing every Sunday and Sunday.
--- NOTE | 2021-12-03 10:47 | PM.IMPN ---
Progress Note: A&P Assessment and Plan (1) Acute respiratory failure: Code(s): J96.00 - Acute respiratory failure, unspecified whether with hypoxia or hypercapnia Status: Acute Assessment and Plan: Acute respiratory failure secondary to pulmonary edema from CHF, NSTEMI and possibly from COPD. Patient was intubated in the field on 11/22/21. CT chest showed no PE but mild pulmonary edema. He was not tolerating weaning trials earlier. Being weaned off sedation. Mental status improving. FiO2 at 30% with PEEP 8. Continue supportive care. 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 Discussed. (2) Fever: Code(s): R50.9 - Fever, unspecified Status: Acute Assessment and Plan: Patient has developed fevers that are resistant to antipyretic medications and we have had to resort to cooling blanket. CT Ch/A/P showing bilateral lower lobe airspace disease but no obvious source. Repeat cultures obtained; BCx NGTD, Sputum Cc NGTD, and UCx negative. Doppler positive for DVT. Antibiotics resumed 12/01 (Levaquin added 12/02). Limited CT brain showing no acute findings. Consider PNA but vent settings are minimal and CXR shows minimal basilar atelectasis. Doubt drug fever. Consider meningitis but seems less likely. Consider fungal infection. Fever curve improving. Continue IV abx. (3) DVT (deep venous thrombosis): Code(s): I82.409 - Acute embolism and thrombosis of unspecified deep veins of unspecified lower extremity Status: Acute Assessment and Plan: Doppler reviewed shows thrombosis of the left basilic, cephalic and brachial veins. Heparin started. Hemoglobin trending downward. No evidence of acute blood loss. Platelet count normal. Continue to monitor closely. (4) Non-STEMI (non-ST elevated myocardial infarction): Code(s): I21.4 - Non-ST elevation (NSTEMI) myocardial infarction Status: Acute Assessment and Plan: Per patient's pharmacy and patient's , he has not taken any medication for months now. He does continue to smoke. Old records state the patient has a stent in his right groin and has history of CAD with coronary stent placed. Elevated troponin here with abnormal EKG but no acute elevation. Echo showing she EF 35-40% with dyskinetic apex and abnormal diastolic function. Cardiology following but there is no plan for angiogram at this time. Heparin was discontinued but now resumed. Continue aspirin, statin, beta-raquel and Cozaar. Appreciate Cardiology input. (5) CHF (congestive heart failure): Qualifiers: Heart failure chronicity: unspecified Heart failure type: unspecified Qualified Code(s): I50.9 - Heart failure, unspecified Code(s): I50.9 - Heart failure, unspecified Status: Acute Assessment and Plan: CT scan shows pulmonary edema and pleural effusion. Echo as mentioned above with EF 35-40%. CT chest 12/01 showing moderate right and mild left pleural effusions and atelectasis but no pulmonary edema. Tolerated intermittent Lasix dosing. Repeat imaging show resolution of edema. CHF exacerbation has resolved. Continue ARB and beta raquel. Continue to follow. (6) Atrial fibrillation with RVR: Code(s): I48.91 - Unspecified atrial fibrillation Status: Acute Assessment and Plan: Patient went into AFib/Flutter with RVR. Heparin discontinued due to anemia. He remains on aspirin. He continues to have intermittent AFib/Flutter but less noted with Lopressor. Echo as mentioned above. TSH normal. AFib related to PE given the DVT to the Left UE? CTA chest negative for PE on 11/23/21. Cardiology following. Appreciate their input. Back on Heparin now. Hgb dropping slowly. No obvious acute blood loss. Continue PPI. Monitor HH closely. (7) KIMBERLY (acute kidney injury): Code(s): N17.9 - Acute kidney failure, unspecified Status: Acute Assessment and Plan: Patient with probable mild CKD with creatinine running 1.2-1.4 r
[2021-12-03] MEDS: ALBUTEROL SULFATE NEB 2.5 MG/3 ML INH (10:50)
[2021-12-03] MEDS: HEPARIN SOD/D5W 100 UNITS/ML 25,000 UNITS/250 ML BAG 14 UNITS IV CONT (11:10)
[2021-12-03 11:52] LABS: Glucose Point of Care 166 mg/dl (65-105)
[2021-12-03 14:24] LABS: Hematocrit 25.4 % (42.0-52.0); Hemoglobin 7.4 g/dL (14.0-18.0); Mean Corpuscular HGB Conc 29.1 g/dl (32-36); Mean Corpuscular Hemoglobin 22.3 pg (26-34); Mean Corpuscular Volume 76.5 fl (80-100); Mean Platelet Volume 10.4 fl (7.4-10.4); Platelet Count Result 456 k/mm3 (150-375); Red Blood Count 3.32 M/mm3 (4.6-6.20); Red Cell Distribution Width 21.8 % (11.5-14.5); White Blood Count 11.7 K/mm3 (4.5-10.0)
[2021-12-03 14:38] LABS: Partial Thromboplastin Time 63.7 SECONDS (22.3-36.8)
[2021-12-03] MEDS: hetaSTARCH 6%/NACL 500 ML 250 ML IV CONT (14:43)
[2021-12-03] MEDS: FENTANYL 2,500MCG/NS250ML(*CRX 2,500 MCG/250 ML BAG IV CONT (17:16)
[2021-12-03] MEDS: MIDAZOLAM 100MG/NS 100ML(*CRX) 100 MG/100 ML BAG 7 MG IV CONT (17:17)
[2021-12-03 17:25] LABS: Anion Gap 7 mmol/L (8-16); Blood Urea Nitrogen 41 mg/dL (9-20); Calcium 8.1 mg/dL (8.4-10.2); Carbon Dioxide 23 mmol/L (22-30); Chloride 113 mmol/L (98-107); Estimated CRCL calculation 67 ml/min; Estimated Glomerular Filt Rate > 60; Glucose 134 mg/dL (65-110); Potassium 4.1 mmol/L (3.4-5.0); Sodium 143 mmol/L (137-145)
[2021-12-03 17:47] LABS: Magnesium 2.4 mg/dL (1.6-2.3)
[2021-12-03 18:44] LABS: Glucose Point of Care 125 mg/dl (65-105)
[2021-12-03] MEDS: SENNA/DOCUSATE SODIUM TABLET 1 TAB PO (20:01)
[2021-12-03 21:37] LABS: Partial Thromboplastin Time 128.6 SECONDS (22.3-36.8)
[2021-12-04] VITALS (36 sets, daily range): BP systolic 79–138; BP diastolic 54–82; PULSE 51–85; RESP 22–28; TEMP 37.3–37.8; O2SAT 97–100
[2021-12-04 00:07] LABS: Glucose Point of Care 133 mg/dl (65-105)
[2021-12-04 00:34] LABS: Glucose Point of Care 141 mg/dl (65-105)
[2021-12-04] MEDS: NOREPINEPHRINE 8 MG/D5W 250 ML 8 MG/250 ML BAG 9.38 MG IV CONT (02:21)
[2021-12-04 04:24] LABS: Basophils Absolute Auto 0.1 K/mm3 (0.0-0.1); Basophils Percent Auto 0.6 % (0.2-1.2); Eosinophils Absolute Auto 0.5 K/mm3 (0-0.3); Immature Granulocyte Absolute 0.07 K/mm3 (0.00-0.031); Immature Granulocyte Percent A 0.7 % (0-0.5); Lymphocytes Absolute Auto 1.87 K/mm3 (0.9-3.2); Lymphocytes Percent Auto 17.8 % (18.3-44.2); Mean Corpuscular HGB Conc 27.6 g/dl (32-36); Mean Corpuscular Hemoglobin 21.6 pg (26-34); Mean Corpuscular Volume 78.4 fl (80-100); Mean Platelet Volume 10.6 fl (7.4-10.4); Monocytes Absolute Auto 0.9 K/mm3 (0.1-0.6); Monocytes Percent Auto 8.1 % (2.6-8.5); Neutrophils Absolute Auto 7.1 K/mm3 (1.3-6.7); Neutrophils Percent Auto 67.8 % (45.5-73.1); Platelet Count Result 486 k/mm3 (150-375); Red Blood Count 3.19 M/mm3 (4.6-6.20); White Blood Count 10.5 K/mm3 (4.5-10.0)
[2021-12-04 04:35] LABS: Alanine Aminotransferase 20 U/L (6-50); Alkaline Phosphatase 115 U/L (38-126); Anion Gap 5 mmol/L (8-16); Aspartate Amino Transferase 35 U/L (17-59); Bilirubin,Total 0.3 mg/dL (0.2-1.3); Blood Urea Nitrogen 45 mg/dL (9-20); Carbon Dioxide 25 mmol/L (22-30); Chloride 113 mmol/L (98-107); Estimated CRCL calculation 67 ml/min; Estimated Glomerular Filt Rate > 60; Glucose 121 mg/dL (65-110); Magnesium 2.4 mg/dL (1.6-2.3); Phosphorus 3.7 mg/dL (2.5-4.5); Potassium 3.9 mmol/L (3.4-5.0); Sodium 143 mmol/L (137-145)
[2021-12-04 04:40] LABS: Hemoglobin 6.9 g/dL (14.0-18.0)
[2021-12-04 04:42] LABS: Platelet Estimate Adequate (Adequate)
[2021-12-04 04:43] LABS: Hypochromasia 1+ (NORMAL); Microcytosis 1+ (NORMAL)
[2021-12-04] MEDS: CENTRAL LINE FLUSH 10 ML IV PUSH ×2 (05:23→20:32)
[2021-12-04 05:28] LABS: Partial Thromboplastin Time 96.9 SECONDS (22.3-36.8)
[2021-12-04 06:25] LABS: Alveolar/Arterial O2 Gradient 77.5 mmHg; Base Excess ABG -2.5 mEq/l (+/-2.0); Carboxyhemoglobin 0.2 % THb (0-2.0); Device VENTILATOR; Fractional Inspired Oxygen 30 %; HCO3 ABG 22.1 mEq/l (22.0-26.0); Methemoglobin ABG 0.1 %THb (0-1.5); Modified Allen's Test Unable to perform; Oxygen Content ABG 13.1 %vol (16.0-22.0); Oxygen Saturation ABG 97.1 % (95.0-100.0); Oxyhemoglobin 95.8 % THb (90.0-100.0); PO2 ABG 92.9 mmHg (80.0-100.0); Reduced Hemoglobin 3.9 %THb (0-5.0); Site Drawn RIGHT RADIAL; Total Hemoglobin 9.6 g/dL (12.0-18.0); pH ABG 7.394 (7.350-7.450)
[2021-12-04 06:26] LABS: Arterial Blood Gas PEEP 8 cmH2O; Arterial Blood Gas Tidal Volume 500 ml; Arterial Blood Gas Vent Mode CMV; Arterial Blood Gas Ventilator rate 24 /MIN
[2021-12-04 07:41] LABS: Vancomycin Trough 16.9 ug/mL (10.0-20.0)
[2021-12-04] MEDS: SODIUM CHLORIDE 0.9% IV 250 ML 30 ML IV CONT (07:52)
[2021-12-04] MEDS: polyethylene glycoL 3350 17 GM POWD.PACK PO (08:01)
[2021-12-04] MEDS: PANTOPRAZOLE SODIUM IV 40 MG VIAL IV PUSH ×2 (08:01→20:32)
[2021-12-04] MEDS: QUEtiapine FUMARATE 12.5 MG TABLET PO ×2 (08:01→20:32)
[2021-12-04] MEDS: MINERAL OIL/WHITE PETROLATUM OINTMENT 1 APPLIC EACH EYE ×2 (08:01→20:31)
[2021-12-04] MEDS: LACTULOSE 20 GM/30 ML UDC PO (08:01)
[2021-12-04] MEDS: SIMVASTATIN 10 MG TABLET PO (08:02)
--- NOTE | 2021-12-04 08:22 | PM.IMPN ---
Progress Note: A&P Assessment and Plan (1) Shock: Code(s): R57.9 - Shock, unspecified Status: Acute Assessment and Plan: Patient became HoTN probably related to acute blood loss. He was started on Levophed and BP more stable. Transfusion ordered. Wean levophed as BP toelrates. Increase in residuals. Consider ileus. Check obst series. (2) Anemia: Code(s): D64.9 - Anemia, unspecified Status: Acute Assessment and Plan: Acute on chronic anemia. Hgb 7-8 range on admission but Hgb did drop to 6.9 on 11/25. No obvious sign of bleeding. PPI changed to IV Q12H. Heparin infusion was discontinued. Patient was transfused 1 unit of PRBC on 11/25. Hgb was stable in the 7-8 range. Heparin drip resumed for DVT but Hgb began to drift down and now 6.9 this morning. Transfusion ordered. Consider hemolysis but TB normal. Consider micro blood loss from stress ulcer or AVM. Discussed with splitting machine feeder; he will order hemolysis labs. Check stool guaiac. Continue to monitor hemoglobin post transfusion. Check iron studies (3) Acute respiratory failure: Code(s): J96.00 - Acute respiratory failure, unspecified whether with hypoxia or hypercapnia Status: Acute Assessment and Plan: Acute respiratory failure secondary to pulmonary edema from CHF, NSTEMI and possibly from COPD. Patient was intubated in the field on 11/22/21. CT chest showed no PE but mild pulmonary edema. Overall improving but not able to tolerate weaning trials. Mental status improving. TV 500, FiO2 30% with PEEP 8 on CMV. Continue supportive care. Appreciate splitting machine feeder input. Trach being considered. Discussed. (4) Fever: Code(s): R50.9 - Fever, unspecified Status: Acute Assessment and Plan: Patient has developed fevers that were resistant to antipyretic medications and we had to resort to cooling blanket. CT Ch/A/P 12/01/21 showing bilateral lower lobe airspace disease but no obvious source of infection. Repeat cultures obtained; BCx NGTD, Sputum Cx negative, and UCx negative. Doppler positive for DVT so consider this the source though seems less likely. Vanco/Cefepime resumed 12/01 (Levaquin added 12/02). Limited CT brain showing no acute findings. Probably PNA but vent settings are stable and CXR shows minimal basilar atelectasis. Doubt drug fever. Fever resolved. Continue IV abx to complete 7 days of treatment. (5) DVT (deep venous thrombosis): Code(s): I82.409 - Acute embolism and thrombosis of unspecified deep veins of unspecified lower extremity Status: Acute Assessment and Plan: Doppler reviewed shows thrombosis of the left basilic, cephalic and brachial veins. Heparin was started but stopped due to anemia. No evidence of acute blood loss. Platelet count normal. Continue to monitor closely. (6) Non-STEMI (non-ST elevated myocardial infarction): Code(s): I21.4 - Non-ST elevation (NSTEMI) myocardial infarction Status: Acute Assessment and Plan: Per patient's pharmacy and patient's , he has not taken any medication for months now. He does continue to smoke. Old records state the patient has a stent in his right groin and has history of CAD with coronary stent placed. Elevated troponin here with abnormal EKG but no acute elevation. Echo showing she EF 35-40% with dyskinetic apex and abnormal diastolic function. Cardiology following but there is no plan for angiogram at this time. Heparin was discontinued. Will hold aspirin, beta-raquel and Cozaar. Appreciate Cardiology input. (7) CHF (congestive heart failure): Qualifiers: Heart failure chronicity: unspecified Heart failure type: unspecified Qualified Code(s): I50.9 - Heart failure, unspecified Code(s): I50.9 - Heart failure, unspecified Status: Acute Assessment and Plan: CT scan shows pulmonary edema and pleural effusion. Echo as mentioned above with EF 35-40%. CT chest 12/01 showing moderat
[2021-12-04 09:16] LABS: Immature Reticulocyte Fraction 40.4 % (3.0-15.9); Reticulocyte Hemoglobin Conten 24.4 pg (28.2-35.7); Reticulocyte Percent 2.72 % (0.7-4.3); Reticulocytes Absolute 0.09 B/L (32.2-175.7)
[2021-12-04 09:17] LABS: Lactate Dehydrogenase 480 U/L (313-618)
[2021-12-04 09:27] LABS: Iron 28 ug/dL (49-181)
[2021-12-04 09:36] LABS: Percent Iron Saturation 9 % (20-50)
--- NOTE | 2021-12-04 11:07 | WPDINTPN ---
Progress Note: A&P Assessment and Plan (1) Shock: Code(s): R57.9 - Shock, unspecified Status: Acute Assessment and Plan: 12/03/2021 at night patient was hypotensive, was given IV fluids despite which his blood pressures remain low, patient was started on Levophed, currently at 3 mcg/min. -maintain mean arterial pressures greater than 65 mmHg -could be related to anemia, patient be transfused 1 unit of packed RBCs -continue cefepime and vancomycin -creatinine stable -check lactic acid (2) Fever: Code(s): R50.9 - Fever, unspecified Status: Acute Assessment and Plan: 11/30/2021 started to spike fevers, -remains febrile overnight and this morning, requiring cooling blanket and Tylenol -11/30 blood cultures: Preliminary results are negative x2 -11/30: Sputum culture: Growth of normal oropharyngeal jay -11/30: Urine cultures negative -antibiotics were discontinued on 11/29/2021 -patient on vancomycin and cefepime (12/01), Levaquin (12/02) -12/02/2021 upper extremity venous Dopplers: Thrombus in the left basilic, cephalic and brachial veins PICC line in place since 11/24/2021, no signs of infection around the PICC. This may have to be removed as patient is still febrile Fungal infection could sometimes cause high fevers, but blood cultures are negative -patient does not have any nuchal rigidity, does follow commands, meningitis seems unlikely 12/01/2021 CT chest, abdomen and pelvis: IMPRESSION:? Moderate right and mild left pleural effusions, Bilateral lower lobe dependent atelectasis. Mild cardiomegaly. ET and NG tubes in satisfactory position Cholelithiasis Borderline splenomegaly.8 mm lower pole right renal calculus. Bilateral perinephric stranding, nonspecific. Retained cecal mesentery. Normal appendix. 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 -patient was in acute respiratory failure secondary to pulmonary edema, congestive heart failure and COPD exacerbation -patient has been failing weaning trial since 11/24/2021 -patient was restarted on Versed infusion, is following commands this morning on 12/02 - Full mechanical ventilation support to prevent hypoxemia/hypercarbia and end organ damage. -CMV mode, 40% FiO2 and peep of 8, he did tolerate ASV on 11/30/2021, But did not tolerate ASV on 12/01/2021 Currently on Versed infusion only, have asked the bedside RN to discontinue Versed infusion, to evaluate for SBT -continue small dose of Seroquel 12.5 mg q.12 hours -chest x-ray this morning:Persistent patchy bibasilar infiltrate and/or atelectasis, mildly increased since 12/04/2021 Patient responded well to diuresis on 11/30, 12/01, 12/03. Will not diurese patient as he is on vasopressors and anemic -continue bronchodilators -12/03/2021: Patient failed breathing trial -DAY 12 of intubation, will discuss with family regarding tracheostomy 11/23/2021 CTA PE protocol 1. No pulmonary embolus. Sensitivity is mildly decreased by motion artifact. 2. Mild pulmonary edema. 3. Small pleural effusions. 4. Mild emphysema. 5. Cardiomegaly. 6. Cirrhosis of the liver. (4) Non-STEMI (non-ST elevated myocardial infarction): Code(s): I21.4 - Non-ST elevation (NSTEMI) myocardial infarction Status: Acute Assessment and Plan: Per patient's pharmacy and patient's he has not taken any medication for months now. He does continue to smoke -Records from [facility] states the patient has a stent in his right groin and has history of coronary disease with a st
[2021-12-04 12:19] LABS: Lactic Acid Reflex 0.9 mmol/L (0.7-2.0)
[2021-12-04 12:22] LABS: Glucose Point of Care 154 mg/dl (65-105)
[2021-12-04 13:17] LABS: Hematocrit 27.2 % (42.0-52.0); Hemoglobin 7.7 g/dL (14.0-18.0); Mean Corpuscular HGB Conc 28.3 g/dl (32-36); Mean Corpuscular Hemoglobin 22.1 pg (26-34); Mean Corpuscular Volume 78.2 fl (80-100); Mean Platelet Volume 10.6 fl (7.4-10.4); Platelet Count Result 435 k/mm3 (150-375); Red Blood Count 3.48 M/mm3 (4.6-6.20); Red Cell Distribution Width 21.4 % (11.5-14.5); White Blood Count 9.5 K/mm3 (4.5-10.0)
[2021-12-04 17:45] LABS: Glucose Point of Care 132 mg/dl (65-105)
[2021-12-04] MEDS: SENNA/DOCUSATE SODIUM TABLET 1 TAB PO (20:32)
[2021-12-04 23:37] LABS: Glucose Point of Care 109 mg/dl (65-105)
[2021-12-05] VITALS (30 sets, daily range): BP systolic 86–142; BP diastolic 58–86; PULSE 50–149; RESP 16–34; TEMP 36.6–37.6; O2SAT 85–100
[2021-12-05 05:48] LABS: Alveolar/Arterial O2 Gradient 123.2 mmHg; Base Excess ABG -3.6 mEq/l (+/-2.0); Carboxyhemoglobin 0.2 % THb (0-2.0); Fractional Inspired Oxygen 30 %; Methemoglobin ABG 0.3 %THb (0-1.5); Oxygen Content ABG 9.4 %vol (16.0-22.0); PO2 FiO2 Ratio Arterial Blood 1.61 %; Reduced Hemoglobin 19.4 %THb (0-5.0); Total Hemoglobin 8.3 g/dL (12.0-18.0); pH ABG 7.384 (7.350-7.450)
[2021-12-05 05:50] LABS: PO2 ABG 48.4 mmHg (80.0-100.0)
[2021-12-05 05:52] LABS: Oxygen Saturation ABG 83.9 % (95.0-100.0)
[2021-12-05 05:53] LABS: Oxyhemoglobin 80.1 % THb (90.0-100.0)
[2021-12-05 05:54] LABS: Modified Allen's Test Pass; Site Drawn RIGHT RADIAL
[2021-12-05 05:55] LABS: Device VENTILATOR
[2021-12-05 05:57] LABS: Arterial Blood Gas PEEP 8 cmH2O; Arterial Blood Gas Tidal Volume 500 ml; Arterial Blood Gas Vent Mode CMV; Arterial Blood Gas Ventilator rate 24 /MIN
[2021-12-05 06:14] LABS: Alveolar/Arterial O2 Gradient 84.4 mmHg; Base Excess ABG -1.5 mEq/l (+/-2.0); Fractional Inspired Oxygen 30 %; HCO3 ABG 22.1 mEq/l (22.0-26.0); Oxygen Content ABG 12.4 %vol (16.0-22.0); Oxygen Saturation ABG 97.4 % (95.0-100.0); Oxyhemoglobin 96.1 % THb (90.0-100.0); PCO2 ABG 32.5 mmHg (35.0-45.0); PO2 ABG 91.3 mmHg (80.0-100.0); PO2 FiO2 Ratio Arterial Blood 3.04 %; Total Hemoglobin 9.1 g/dL (12.0-18.0)
[2021-12-05 06:15] LABS: Basophils Absolute Auto 0.1 K/mm3 (0.0-0.1); Basophils Percent Auto 0.7 % (0.2-1.2); Eosinophils Absolute Auto 0.5 K/mm3 (0-0.3); Eosinophils Percent Auto 4.5 % (0-4.4); Hematocrit 29.6 % (42.0-52.0); Hemoglobin 8.3 g/dL (14.0-18.0); Immature Granulocyte Absolute 0.07 K/mm3 (0.00-0.031); Immature Granulocyte Percent A 0.7 % (0-0.5); Lymphocytes Absolute Auto 1.22 K/mm3 (0.9-3.2); Lymphocytes Percent Auto 12.1 % (18.3-44.2); Mean Corpuscular Volume 78.3 fl (80-100); Mean Platelet Volume 10.6 fl (7.4-10.4); Monocytes Absolute Auto 0.9 K/mm3 (0.1-0.6); Monocytes Percent Auto 8.8 % (2.6-8.5); Neutrophils Absolute Auto 7.4 K/mm3 (1.3-6.7); Neutrophils Percent Auto 73.2 % (45.5-73.1); Platelet Count Result 510 k/mm3 (150-375); Red Blood Count 3.78 M/mm3 (4.6-6.20); Red Cell Distribution Width 21.7 % (11.5-14.5); White Blood Count 10.1 K/mm3 (4.5-10.0)
[2021-12-05 06:15] LABS: Arterial Blood Gas PEEP 8 cmH2O; Arterial Blood Gas Tidal Volume 500 ml; Arterial Blood Gas Vent Mode CMV; Arterial Blood Gas Ventilator rate 24 /MIN; Device VENTILATOR; Modified Allen's Test Pass; Site Drawn RIGHT RADIAL
[2021-12-05 06:31] LABS: Alanine Aminotransferase 19 U/L (6-50); Albumin Level 3.1 g/dL (3.5-5.1); Alkaline Phosphatase 128 U/L (38-126); Anion Gap 5 mmol/L (8-16); Aspartate Amino Transferase 32 U/L (17-59); Bilirubin,Total 0.6 mg/dL (0.2-1.3); Blood Urea Nitrogen 37 mg/dL (9-20); Calcium 8.7 mg/dL (8.4-10.2); Carbon Dioxide 25 mmol/L (22-30); Chloride 113 mmol/L (98-107); Estimated CRCL calculation 62 ml/min; Estimated Glomerular Filt Rate > 60; Glucose 101 mg/dL (65-110); Magnesium 2.4 mg/dL (1.6-2.3); Phosphorus 3.3 mg/dL (2.5-4.5); Potassium 4.3 mmol/L (3.4-5.0); Sodium 143 mmol/L (137-145)
[2021-12-05] MEDS: CENTRAL LINE FLUSH 10 ML IV PUSH (06:37)
[2021-12-05 06:46] LABS: Platelet Estimate Increased (Adequate)
[2021-12-05 06:47] LABS: Platelet Clumps Present; Poikilocytosis 1+ (NORMAL)
--- NOTE | 2021-12-05 08:16 | WPDINTPN ---
Progress Note: A&P Assessment and Plan (1) Shock: Code(s): R57.9 - Shock, unspecified Status: Acute Assessment and Plan: 12/03/2021 at night patient was hypotensive, was given IV fluids despite which his blood pressures remain low, patient was started on Levophed -OFF LEVOPHED SINCE 12/03/2021 AT 10:00 P.M. -maintain mean arterial pressures greater than 65 mmHg -could be related to anemia, 12/03 patient was transfused 1 unit of packed RBCs -continue cefepime and vancomycin, levofloxacin. Fevers have improved -creatinine stable -normal lactic levels (2) Fever: Code(s): R50.9 - Fever, unspecified Status: Acute Assessment and Plan: 11/30/2021 started to spike fevers, -remains febrile overnight and this morning, requiring cooling blanket and Tylenol -11/30 blood cultures: Preliminary results are negative x2 -11/30: Sputum culture: Growth of normal oropharyngeal jay -11/30: Urine cultures negative -antibiotics were discontinued on 11/29/2021 -patient on vancomycin and cefepime (12/01), Levaquin (12/02) -12/02/2021 upper extremity venous Dopplers: Thrombus in the left basilic, cephalic and brachial veins PICC line in place since 11/24/2021, no signs of infection around the PICC. This may have to be removed as patient is still febrile Fungal infection could sometimes cause high fevers, but blood cultures are negative -patient does not have any nuchal rigidity, does follow commands, meningitis seems unlikely FEVERS HAVE IMPROVED 12/01/2021 CT chest, abdomen and pelvis: IMPRESSION:? Moderate right and mild left pleural effusions, Bilateral lower lobe dependent atelectasis. Mild cardiomegaly. ET and NG tubes in satisfactory position Cholelithiasis Borderline splenomegaly.8 mm lower pole right renal calculus. Bilateral perinephric stranding, nonspecific. Retained cecal mesentery. Normal appendix. 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 -patient was in acute respiratory failure secondary to pulmonary edema, congestive heart failure and COPD exacerbation -patient has been failing weaning trial since 11/24/2021 -patient was restarted on Versed infusion, is following commands this morning on 12/02 - Full mechanical ventilation support to prevent hypoxemia/hypercarbia and end organ damage. -CMV mode, 40% FiO2 and peep of 8, he did tolerate ASV on 11/30/2021, But did not tolerate ASV on 12/01/2021 Currently on Versed infusion only, have asked the bedside RN to discontinue Versed infusion, to evaluate for SBT -continue small dose of Seroquel 12.5 mg q.12 hours -chest x-ray this morning:Persistent patchy bibasilar infiltrate and/or atelectasis, mildly increased since 12/04/2021 Patient responded well to diuresis on 11/30, 12/01, 12/03. Will not diurese patient as he is on vasopressors and anemic -continue bronchodilators -12/03/2021: Patient failed breathing trial -DAY 13 of intubation, will discuss with family regarding tracheostomy 11/23/2021 CTA PE protocol 1. No pulmonary embolus. Sensitivity is mildly decreased by motion artifact. 2. Mild pulmonary edema. 3. Small pleural effusions. 4. Mild emphysema. 5. Cardiomegaly. 6. Cirrhosis of the liver. (4) Non-STEMI (non-ST elevated myocardial infarction): Code(s): I21.4 - Non-ST elevation (NSTEMI) myocardial infarction Status: Acute Assessment and Plan: Per patient's pharmacy and patient's he has not taken any medication for months now. He does continue to smoke -Records from [facility]
[2021-12-05] MEDS: QUEtiapine FUMARATE 12.5 MG TABLET PO (08:55)
[2021-12-05] MEDS: PANTOPRAZOLE SODIUM IV 40 MG VIAL IV PUSH (08:55)
[2021-12-05] MEDS: MINERAL OIL/WHITE PETROLATUM OINTMENT 1 APPLIC EACH EYE (08:55)
[2021-12-05] MEDS: polyethylene glycoL 3350 17 GM POWD.PACK PO (08:55)
[2021-12-05] MEDS: SIMVASTATIN 10 MG TABLET PO (08:55)
[2021-12-05] MEDS: LACTULOSE 20 GM/30 ML UDC PO (08:55)
[2021-12-05] MEDS: MIDAZOLAM HCL (*CRX) 2 MG/2 ML VIAL ×2 (09:57→11:16)
[2021-12-05] MEDS: ROCURONIUM BROMIDE 50 MG/5 ML VIAL (11:17)
[2021-12-05] MEDS: MIDAZOLAM 100MG/NS 100ML(*CRX) 100 MG/100 ML BAG IV CONT (11:17)
--- NOTE | 2021-12-05 11:44 | WPDPROCEDUR ---
Procedures Intubation A pre-procedural Time-Out was completed immediately before starting the procedure and confirmed: Patient Identification, Site, Procedure, Patient Position and the Availability of Requisite Equipment: Yes Sedative: versed Paralytic: rocuronium Laryngoscope: fiber optic video scope Assist device used: Bougie ET tube size: 8 Tube secured depth (cm): 27 Tube secured location: lips Tube placement confirmation: visualized tube passing through cords, equal breath sounds bilaterally, no breath sounds over epigastrium and confirmation by capnometry Patient tolerated procedure: well Intubation complications: none
[2021-12-05] MEDS: METOPROLOL TARTRATE INJ 5 MG/5 ML VIAL IV PUSH (11:47)
[2021-12-05] MEDS: FENTANYL 2,500MCG/NS250ML(*CRX 2,500 MCG/250 ML BAG 12.5 MCG IV CONT (11:55)
[2021-12-05 12:01] LABS: Glucose Point of Care 198 mg/dl (65-105)
[2021-12-05] MEDS: MORPHINE SULFATE INJ (*CRX) 10 MG/ML AMP 5 MG IV PUSH (14:58)
[2021-12-05] MEDS: LORazepam INJ (*CRX) 2 MG/ML VIAL IV PUSH ×4 (14:58→23:03)
--- NOTE | 2021-12-05 15:05 | PC.NURSE ---
Patient extubated at 1505
--- NOTE | 2021-12-05 17:23 | PM.IMPN ---
Progress Note: A&P Assessment and Plan (1) Shock: Code(s): R57.9 - Shock, unspecified Status: Acute (2) Anemia: Code(s): D64.9 - Anemia, unspecified Status: Acute (3) Acute respiratory failure: Code(s): J96.00 - Acute respiratory failure, unspecified whether with hypoxia or hypercapnia Status: Acute (4) Fever: Code(s): R50.9 - Fever, unspecified Status: Acute (5) DVT (deep venous thrombosis): Code(s): I82.409 - Acute embolism and thrombosis of unspecified deep veins of unspecified lower extremity Status: Acute (6) Non-STEMI (non-ST elevated myocardial infarction): Code(s): I21.4 - Non-ST elevation (NSTEMI) myocardial infarction Status: Acute (7) CHF (congestive heart failure): Qualifiers: Heart failure chronicity: unspecified Heart failure type: unspecified Qualified Code(s): I50.9 - Heart failure, unspecified Code(s): I50.9 - Heart failure, unspecified Status: Acute (8) Atrial fibrillation with RVR: Code(s): I48.91 - Unspecified atrial fibrillation Status: Acute (9) KIMBERLY (acute kidney injury): Code(s): N17.9 - Acute kidney failure, unspecified Status: Acute (10) Hypernatremia: Code(s): E87.0 - Hyperosmolality and hypernatremia Status: Acute (11) Encephalopathy: Code(s): G93.40 - Encephalopathy, unspecified Status: Acute Plan Patient has been extubated for comfort measures. Continue comfort medications with morphine and Ativan. Continue supportive care to the patient and family. Subjective Date/time seen: 12/05/21 17:23 Interval history: 66yo male with PAD, CAD and COPD here for respiratory failure. Family has decided to make the patient comfortable. Patient was extubated and is currently on comfort measures. Discussed with family. All questions were answered. Review of Systems Review of Systems: ROS unobtainable: Yes unobtainable due to mental status Exam Narrative: 98.1 107/70 77 24 93% Gen - comfortable Chest - coarse anteriroly CV - RRR. S1-S2. Abd - soft - Gray secured draining clear yellow urine Ext - bilateral AKA. Neuro - sedated Objective Data Vital Signs Vital Signs: Vital Signs - 24 hr 12/04/21 18:00 12/04/21 18:00 12/04/21 19:59 Temperature 99.9 F H Pulse Rate 62 63 Respiratory Rate 24 H Blood Pressure 107/70 Pulse Oximetry 99 Oxygen Delivery Mechanical Ventilation Fraction of Inspired Oxygen 30 12/04/21 20:00 12/04/21 19:00 12/04/21 20:00 Temperature 100.0 F H Pulse Rate 67 62 Respiratory Rate 22 H Blood Pressure 120/69 104/66 Pulse Oximetry 99 Oxygen Delivery Fraction of Inspired Oxygen 30 12/04/21 20:33 12/04/21 20:34 12/04/21 19:10 Temperature Pulse Rate 59 L 59 L 61 Respiratory Rate 24 H Blood Pressure 99/64 L Pulse Oximetry 99 Oxygen Delivery Mechanical Ventilation Fraction of Inspired Oxygen 30 12/04/21 20:00 12/04/21 22:00 12/04/21 22:00 Temperature Pulse Rate 61 57 L 57 L Respiratory Rate 24 H Blood Pressure 93/61 L Pulse Oximetry 99 Oxygen Delivery Fraction of Inspired Oxygen 12/04/21 22:35 12/04/21 23:36 12/04/21 23:42 Temperature Pulse Rate 60 51 L 60 Respiratory Rate 24 H Blood Pressure 95/57 L Pulse Oximetry 98 Oxygen Delivery Mechanical Ventilation Fraction of Inspired Oxygen 30 12/04/21 23:44 12/04/21 23:53 12/05/21 00:00 Temperature 99.1 F Pulse Rate 58 L Respiratory Rate 24 H Blood Pressure 86/58 L Pulse Oximetry 98 Oxygen Delivery Mechanical Ventilation Fraction of Inspired Oxygen 30 30 12/05/21 00:00 12/05/21 00:33 12/05/21 02:08 Temperature 99.2 F Pulse Rate 66 77 65 Respiratory Rate 28 H Blood Pressure 137/70 Pulse Oximetry 100 96 Oxygen Delivery Mechanical Ventilation Fraction of Inspired Oxygen 30 12/05/21 02:00 12/05/21 02
[2021-12-05] MEDS: MORPHINE SULFATE (*CRX) 2 MG/ML INJ IV PUSH ×3 (17:41→23:03)
[2021-12-06] MEDS: LORazepam INJ (*CRX) 2 MG/ML VIAL IV PUSH ×3 (01:50→07:46)
[2021-12-06] MEDS: MORPHINE SULFATE (*CRX) 2 MG/ML INJ IV PUSH ×5 (01:51→11:59)
--- NOTE | 2021-12-06 01:57 | PC.NURSE ---
12/06/21 0150 o2 sats 70-80's room air. pt placed on o2@1L/nc. turned and repositioned every 2 hours and prn. hob elevated. pt continues to moan and groan. medicated with prn ativan and morphine.
[2021-12-06 04:00] VITALS: BP 108/69; PULSE 136; RESP 30; TEMP 37.8; O2SAT 77
[2021-12-06 07:45] VITALS: O2SAT 93
[2021-12-06 08:00] VITALS: BP 102/74; PULSE 154; RESP 31; TEMP 35.5; O2SAT 80
[2021-12-06] MEDS: MORPHINE SULFATE INJ (*CRX) 50 MG in SODIUM CHLORIDE 0.9% IV 95 ML IV CONT (08:59)
[2021-12-06] MEDS: SCOPOLAMINE 1.5 MG PATCH TRANSDERM (09:04)
[2021-12-06 11:31] VITALS: BP 95/70; PULSE 112; RESP 30; TEMP 35.9; O2SAT 93
[2021-12-06] MEDS: diazePAM INJ (*CRX) 10 MG/2 ML SYRINGE 5 MG IV PUSH (12:33)
--- NOTE | 2021-12-06 14:39 | PCNFU ---
Nutrition Follow-Up Complete: Inadequate Oral Intake as related to NPO status without nutrition support Goal:Meet estimated nutritional needs Pt current nutrition is NPO. Nutrition recommendation: comfort measures Last recorded weight is 93 kg - stable. Bowel Motility: + BM 12/05 Labs Reviewed: Meds Noted:morphine Skin: Additional Notes: pt has been extubated, tube feeding stopped. comfort measures. no follow up needed
--- NOTE | 2021-12-06 14:54 | PM.IMPN ---
Progress Note: A&P Assessment and Plan (1) Shock: Code(s): R57.9 - Shock, unspecified Status: Acute (2) Anemia: Code(s): D64.9 - Anemia, unspecified Status: Acute (3) Acute respiratory failure: Code(s): J96.00 - Acute respiratory failure, unspecified whether with hypoxia or hypercapnia Status: Acute (4) Fever: Code(s): R50.9 - Fever, unspecified Status: Acute (5) DVT (deep venous thrombosis): Code(s): I82.409 - Acute embolism and thrombosis of unspecified deep veins of unspecified lower extremity Status: Acute (6) Non-STEMI (non-ST elevated myocardial infarction): Code(s): I21.4 - Non-ST elevation (NSTEMI) myocardial infarction Status: Acute (7) CHF (congestive heart failure): Qualifiers: Heart failure chronicity: unspecified Heart failure type: unspecified Qualified Code(s): I50.9 - Heart failure, unspecified Code(s): I50.9 - Heart failure, unspecified Status: Acute (8) Atrial fibrillation with RVR: Code(s): I48.91 - Unspecified atrial fibrillation Status: Acute (9) KIMBERLY (acute kidney injury): Code(s): N17.9 - Acute kidney failure, unspecified Status: Acute (10) Hypernatremia: Code(s): E87.0 - Hyperosmolality and hypernatremia Status: Acute (11) Encephalopathy: Code(s): G93.40 - Encephalopathy, unspecified Status: Acute Plan Patient has been extubated for comfort measures. Continue comfort medications with morphine and Ativan. Continue supportive care to the patient and family. Additional Plan Code status: DNR-comfort care Subjective Date/time seen: 12/06/21 14:54 Interval history: Patient resting comfortably on a morphine drip. Somnolent, essentially unresponsive to stimuli. No overnight events noted. Review of Systems Review of Systems: ROS unobtainable: Yes unobtainable due to mental status Exam Narrative: General: Somnolent HEENT: Atraumatic, normocephalic, mucous membranes moist CV: S1, S2, tachycardia Lungs: Coarse breath sounds throughout, some upper airway rhonchorous sounds Abdomen: Soft, nontender, nondistended Extremities: Normal to inspection Objective Data Vital Signs Vital Signs: Vital Signs - 24 hr 12/05/21 16:00 12/05/21 17:59 12/05/21 15:00 Temperature 98.0 F Pulse Rate 77 72 72 Respiratory Rate 32 H 32 H Blood Pressure Pulse Oximetry 93 Oxygen Delivery Oxygen Flow Rate 12/05/21 19:56 12/05/21 20:00 12/05/21 23:45 Temperature 97.8 F 99.6 F Pulse Rate 89 102 H Respiratory Rate 16 24 H Blood Pressure 108/73 115/62 Pulse Oximetry 90 85 L Oxygen Delivery Room Air Oxygen Flow Rate 12/06/21 04:00 12/06/21 08:00 12/06/21 11:31 Temperature 100.0 F H 96 F L 96.7 F L Pulse Rate 136 H 154 H 112 H Respiratory Rate 30 H 31 H 30 H Blood Pressure 108/69 102/74 95/70 L Pulse Oximetry 77 L 80 L 93 Oxygen Delivery Oxygen Flow Rate 12/06/21 07:45 Temperature Pulse Rate Respiratory Rate Blood Pressure Pulse Oximetry 93 Oxygen Delivery Nasal Cannula Oxygen Flow Rate 5 Intake/Output Intake/Output: Intake & Output 12/03/21 12/04/21 12/05/21 12/06/21 23:59 23:59 23:59 23:59 Intake Total 4634 2802 648 Output Total 2000 1450 1400 500 Balance 2634 1352 -752 -500 Meds/Results Medications: Active Medications Generic Name Dose Route Start Last Admin Trade Name Freq PRN Reason Stop Dose Admin Atropine Sulfate 1 - 2 drop 12/06/21 07:53 Atropine Sulfate 1% Ophth Soln 5 Ml Bottle SUBLINGUAL Q4H PRN Secretions Morphine Sulfate 50 mg/ Sodium 100 mls @ 10 mls/hr 12/06/21 09:00 12/06/21 14:48 Chloride IV CONT 5 mg/hr .Q10H ALIZA 10 mls/hr Infusion 5 MG/HR Lorazepam 2 mg 12/05/21 14:37 12/06/21 07:46 Lorazepam Inj (*Crx) 2 Mg/Ml Vial IV PUSH 2 mg Q2H PRN Administration Anxiety/Comfort Morphine Sulfate
[2021-12-07 22:15] LABS: Haptoglobin 373 mg/dL (43-212)
--- NOTE | 2021-12-10 17:42 | PM.DS ---
DS: Admitting Diagnosis Discharge Date 12/06/21 Admitting Diagnosis Shortness of breath DS: Discharge Diagnosis Discharge Diagnosis (1) Shock: Code(s): R57.9 - Shock, unspecified Status: Acute Assessment and Plan: 12/03/2021 at night patient was hypotensive, was given IV fluids despite which his blood pressures remain low, patient was started on Levophed -OFF LEVOPHED SINCE 12/03/2021 AT 10:00 P.M. -maintain mean arterial pressures greater than 65 mmHg -could be related to anemia, 12/03 patient was transfused 1 unit of packed RBCs -continue cefepime and vancomycin, levofloxacin.? Fevers have improved -creatinine stable -normal lactic levels (2) Anemia: Code(s): D64.9 - Anemia, unspecified Status: Acute Assessment and Plan: 11/25 Hemoglobin has trended down to 6.9.? No obvious sign of bleeding Change PPI to IV q.12 hours Heparin infusion was discontinued Patient was transfused 1 unit of PRBC on 11/25/2021 -check haptoglobin, retic count, LDH -hospitalist has also ordered iron panel, vitamin B12 and folic acid levels 12/04:Hemoglobin dropped to 6.9 this morning, transfused 1 unit of packed RBCs? on 12/04/2021 (3) Acute respiratory failure: Code(s): J96.00 - Acute respiratory failure, unspecified whether with hypoxia or hypercapnia Status: Acute (4) Fever: Code(s): R50.9 - Fever, unspecified Status: Acute Assessment and Plan: 11/30/2021 started to spike fevers, -remains febrile overnight and this morning, requiring cooling blanket and Tylenol -11/30 blood cultures: Preliminary results are negative x2 -11/30:? Sputum culture:? Growth of normal oropharyngeal jay -11/30:? Urine cultures negative -antibiotics were discontinued on 11/29/2021 -patient on vancomycin and cefepime (12/01), Levaquin (12/02) -12/02/2021 upper extremity venous Dopplers: Thrombus in the left basilic, cephalic and brachial veins PICC line in place since 11/24/2021, no signs of infection around the PICC.? This may have to be removed as patient is still febrile Fungal infection could sometimes cause high fevers, but blood cultures are negative -patient does not have any nuchal rigidity, does follow commands, meningitis seems unlikely FEVERS HAVE IMPROVED 12/01/2021 CT chest, abdomen and pelvis: IMPRESSION:? Moderate right and mild left pleural effusions, Bilateral lower lobe dependent atelectasis. Mild cardiomegaly. ET and NG tubes in satisfactory position Cholelithiasis Borderline splenomegaly.8 mm lower pole right renal calculus. Bilateral perinephric stranding, nonspecific. Retained cecal mesentery. Normal appendix. 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 -patient was in acute respiratory failure secondary to pulmonary edema, congestive heart failure and COPD exacerbation -patient has been failing weaning trial since 11/24/2021 -patient was restarted on Versed infusion, is following commands this morning on 12/02 - Full mechanical ventilation support to prevent hypoxemia/hypercarbia and end organ damage. -CMV mode, 40% FiO2 and peep of 8, he did tolerate ASV on 11/30/2021, But did not tolerate ASV on 12/01/2021 Currently on Versed infusion only, have asked the bedside RN to discontinue Versed infusion, to evaluate for SBT -continue small dose of Seroquel 12.5 mg q.12 hours -chest x-ray this morning:Persistent patchy bibasilar infiltrate and/or atelectasis, mildly increased since 12/04/2021 Patient responded well to diuresis on 11/30, 12/01, 12/03.? Will not diurese patient as he is on vasop
== END 2021-12-06 15:35 | disposition hospice, inpatient (51) | DRG 281 ==
LOC: ANHED 11-23 03:44 → ANHICU 11-23 04:05 → ANH3MEDSUR 12-05 19:02
PROVIDERS: Internal Medicine; Nurse Practitioner Adult Health; Admitting Provider Internal Medicine; Emergency Provider Emergency Medicine; Visit Provider Student in an Organized Health Care Education/Training Program
DX: I21.4 Non-ST elevation (NSTEMI) myocardial infarction (principal); E87.0 Hyperosmolality and hypernatremia; N17.9 Acute kidney failure, unspecified; G93.40 Encephalopathy, unspecified; I82.622 Acute embolism and thrombosis of deep veins of left upper extremity; J44.1 Chronic obstructive pulmonary disease with (acute) exacerbation; R57.9 Shock, unspecified; Z20.822 Contact with and (suspected) exposure to COVID-19; I27.20 Pulmonary hypertension, unspecified; I50.9 Heart failure, unspecified; E11.51 Type 2 diabetes mellitus with diabetic peripheral angiopathy without gangrene; K74.60 Unspecified cirrhosis of liver; Z51.5 Encounter for palliative care; Z66 Do not resuscitate; I48.91 Unspecified atrial fibrillation; Z89.612 Acquired absence of left leg above knee; I24.9 Acute ischemic heart disease, unspecified; D64.9 Anemia, unspecified; Z89.611 Acquired absence of right leg above knee; Z79.899 Other long term (current) drug therapy; I25.10 Atherosclerotic heart disease of native coronary artery without angina pectoris; R50.9 Fever, unspecified
CPT/HCPCS: 36415; 36430; 36569; 36600; 70450; 71045; 71250; 71275; 74019; 74176; 80048; 80053; 80202; 81001; 82140; 82375; 82550; 82607; 82728; 82746; 82805; 82948; 83010; 83050; 83540; 83550; 83605; 83615; 83735; 83880; 84100; 84439; 84443; 84480; 84484; 85014; 85018; 85025; 85027; 85046; 85380; 85610; 85730; 86850; 86900; 86901; 86920; 87040; 87070; 87086; 87088; 87205; 93005; 93970; 94003; 94640; 96365; 96366; 96367; 96372; 96375; 99285; A9270; C1751; C8929; C9113; C9803; G0378; J0692; J0696; J1644; J1650; J1815; J1940; J1956; J2060; J2250; J2270; J2704; J2997; J3010; J3360; J3370; J7040; J7050; J7120; P9016; Q9957; Q9967; U0003; U0005

== ENCOUNTER 2021-12-06 14:30 | HOS | payer OTHER, MEDICARE, SELFPAY ==
--- NOTE | 2021-12-06 15:45 | PC.NURSE ---
Patient admitted to hospice.
[2021-12-06 15:50] VITALS: O2SAT 89
[2021-12-06] MEDS: PHENobarbitaL sodium (*CRX) 130 MG/ML VIAL 60 MG IV PUSH (15:59)
[2021-12-06 16:12] VITALS: BP 93/68; PULSE 109; RESP 31; TEMP 35.6; O2SAT 89
--- NOTE | 2021-12-06 17:13 | PM.IMHP ---
H&P: HPI History of Present Illness Date/Time: 12/06/21 17:13 Chief Complaint: uncontrolled dyspnea and restlessness Narrative: This unfortunate 66-year-old gentleman was admitted to [facility] on November 23. At that time he had respiratory distress. He required intubation and mechanical ventilation. He was treated for congestive heart failure as well as pneumonia with vancomycin and cefepime. Diuresed with furosemide. Unfortunately he continued to decline. Although his acute kidney injury resolved. He was extubated and placed on comfort measures on December 05 and survived the night. Family requested inpatient hospice service for comfort care. At the time of admission he was thrashing about and had panting respirations. This was in spite of a morphine drip at 5 milligrams/hour. He became more comfortable after addition of phenobarbital lorazepam and p.r.n. morphine bolus. Review of Systems Review of Systems: ROS unobtainable: Yes unobtainable due to medical condition PMFSH Past Medical History Medical History Diabetes mellitus Surgical History Surgical History Status post bilateral above knee amputation Family History Family History Father No problems noted. Mother No problems noted. Social History Social History Smoking status: Current every day smoker Last use: Unable to assess: patient intubated Spiritual care concerns: No Meds Home Medications and Allergies Home Medications Medication Instructions Recorded Confirmed Type buspirone 10 mg tablet 10 mg PO BID 11/23/21 11/23/21 History clopidogrel 75 mg tablet (Plavix) 75 mg PO DAILY 11/23/21 11/23/21 History isosorbide mononitrate 30 mg 30 mg PO DAILY 11/23/21 11/23/21 History tablet,extended release 24 hr losartan 25 mg tablet (Cozaar) 25 mg PO DAILY 11/23/21 11/23/21 History metoprolol tartrate 25 mg tablet 25 mg PO BID 11/23/21 11/23/21 History simvastatin 10 mg tablet 10 mg PO DAILY 11/23/21 11/23/21 History Allergies Allergy/AdvReac Type Severity Reaction Status Date / Time No Known Allergies Allergy Verified 11/27/21 02:31 Vital Signs Vital Signs - 24 hr 12/06/21 16:12 Temperature 96.1 F L Pulse Rate 109 H Respiratory Rate 31 H Blood Pressure 93/68 L Pulse Oximetry 89 L Exam Narrative: Elderly gentleman lying supine in hospital bed with tachypnea. Eyes rolled back. Sclerae nonicteric. Pupils symmetric. Pharyngeal mucosa dry. Neck without JVD. Chest with bilateral diminished breath sounds and shallow respirations. Heart irregular tachycardic. Abdomen protuberant but soft with hypoactive bowel sounds. Extremities without edema. Bilateral AKA noted. Cranial nerves grossly symmetric to inspection. Unresponsive to verbal or tactile stimuli. Assessment and Plan Assessment and plan (1) Palliative care by specialist: Code(s): Z51.5 - Encounter for palliative care Status: Acute Assessment and Plan: Meets inpatient hospice criteria due to requirement for continuous IV morphine for control of dyspnea and scheduled IV phenobarbital and p.r.n. lorazepam IV for palliative sedation due to restlessness (2) Shock: Code(s): R57.9 - Shock, unspecified Status: Acute (3) DVT (deep venous thrombosis): Code(s): I82.409 - Acute embolism and thrombosis of unspecified deep veins of unspecified lower extremity Status: Acute (4) Encephalopathy: Code(s): G93.40 - Encephalopathy, unspecified Status: Acute (5) Anemia: Code(s): D64.9 - Anemia, unspecified Status: Acute (6) Atrial fibrillation with RVR: Code(s): I48.91 - Unspecified atrial fibrillation Status: Acute (7) Acute respiratory failure: Code(s): J96.00 - A
[2021-12-06 17:33] VITALS: BMI 35.2
[2021-12-06] MEDS: ARTIFICIAL TEARS OPHTH SOLN 15 ML BOTTLE 1 DROP EACH EYE (20:15)
[2021-12-06] MEDS: LORazepam INJ (*CRX) 2 MG/ML VIAL IV PUSH (20:15)
[2021-12-06] MEDS: MORPHINE SULFATE INJ (*CRX) 50 MG in SODIUM CHLORIDE 0.9% IV 95 ML 10 MG IV CONT (20:16)
[2021-12-06 22:04] VITALS: BP 113/73; PULSE 108; RESP 20; TEMP 36.2; O2SAT 93
[2021-12-07] MEDS: PHENobarbitaL sodium (*CRX) 130 MG/ML VIAL 60 MG IV PUSH ×2 (03:25→16:40)
[2021-12-07] MEDS: MORPHINE SULFATE INJ (*CRX) 50 MG in SODIUM CHLORIDE 0.9% IV 95 ML 10 MG IV CONT ×2 (06:28→16:42)
[2021-12-07 08:00] VITALS: O2SAT 91
[2021-12-07] MEDS: ARTIFICIAL TEARS OPHTH SOLN 15 ML BOTTLE 1 DROP EACH EYE ×2 (08:08→20:43)
[2021-12-07 08:59] VITALS: BP 90/68; PULSE 110; RESP 30; TEMP 36.6; O2SAT 91
--- NOTE | 2021-12-07 16:33 | PM.IMPN ---
Progress Note: A&P Assessment and Plan (1) Palliative care by specialist: Code(s): Z51.5 - Encounter for palliative care Status: Acute Assessment and Plan: Meets inpatient hospice criteria due to requirement for continuous IV morphine for control of dyspnea and scheduled IV phenobarbital and p.r.n. lorazepam IV for palliative sedation due to restlessness (2) Shock: Code(s): R57.9 - Shock, unspecified Status: Acute (3) DVT (deep venous thrombosis): Code(s): I82.409 - Acute embolism and thrombosis of unspecified deep veins of unspecified lower extremity Status: Acute (4) Encephalopathy: Code(s): G93.40 - Encephalopathy, unspecified Status: Acute (5) Anemia: Code(s): D64.9 - Anemia, unspecified Status: Acute (6) Atrial fibrillation with RVR: Code(s): I48.91 - Unspecified atrial fibrillation Status: Acute (7) Acute respiratory failure: Code(s): J96.00 - Acute respiratory failure, unspecified whether with hypoxia or hypercapnia Status: Acute (8) Non-STEMI (non-ST elevated myocardial infarction): Code(s): I21.4 - Non-ST elevation (NSTEMI) myocardial infarction Status: Acute (9) CHF (congestive heart failure): Qualifiers: Heart failure chronicity: unspecified Heart failure type: unspecified Qualified Code(s): I50.9 - Heart failure, unspecified Code(s): I50.9 - Heart failure, unspecified Status: Acute Subjective Date/time seen: 12/07/21 16:33 Comfortable on current regimen. Review of Systems Review of Systems: ROS unobtainable: Yes unobtainable due to medical condition Exam Narrative: Elderly gentleman lying supine in hospital bed with tachypnea. Eyes rolled back. Sclerae nonicteric. Pupils symmetric. Pharyngeal mucosa dry. Neck without JVD. Chest with bilateral diminished breath sounds and shallow respirations. Heart irregular tachycardic. Abdomen protuberant but soft with hypoactive bowel sounds. Extremities without edema. Bilateral AKA noted. Cranial nerves grossly symmetric to inspection. Unresponsive to verbal or tactile stimuli. Objective Data Vital Signs Vital Signs: Vital Signs - 24 hr 12/06/21 22:04 12/06/21 20:00 07/06/22 08:59 Temperature 97.1 F L 97.8 F Pulse Rate 108 H 110 H Respiratory Rate 20 30 H Blood Pressure 113/73 90/68 L Pulse Oximetry 93 91 Oxygen Delivery Nasal Cannula Oxygen Flow Rate 5 12/07/21 08:00 Temperature Pulse Rate Respiratory Rate Blood Pressure Pulse Oximetry 91 Oxygen Delivery Nasal Cannula Oxygen Flow Rate 5 Intake/Output Intake/Output: Intake & Output 12/04/21 12/05/21 12/06/21 12/07/21 23:59 23:59 23:59 23:59 Intake Total 100 Output Total 550 Balance -550 100 Meds/Results Medications: Active Medications Generic Name Dose Route Start Last Admin Trade Name Freq PRN Reason Stop Dose Admin Artificial Tears 1 drop 12/06/21 21:00 12/07/21 08:08 Artificial Tears Ophth Soln 15 Ml Bottle EACH EYE 1 drop Q12H ALIZA Administration Bisacodyl 10 mg 12/06/21 15:56 Bisacodyl 10 Mg Suppository RECTAL QAM PRN Constipation Glycopyrrolate 0.1 mg 12/06/21 15:56 Glycopyrrolate Inj (*Sp) 0.2 Mg/Ml Vial IV PUSH Q4H PRN Secretions Morphine Sulfate 50 mg/ Sodium 100 mls @ 10 mls/hr 12/06/21 21:00 12/07/21 06:28 Chloride IV CONT 5 mg/hr .Q10H ALIZA 10 mls/hr Administration 5 MG/HR Lorazepam 2 mg 12/06/21 15:56 12/06/21 20:15 Lorazepam Inj (*Crx) 2 Mg/Ml Vial IV PUSH 2 mg Q2H PRN Administration Anxiety/sob Morphine Sulfate 5 mg 12/06/21 15:59 Morphine Sulfate Inj (*Crx) 10 Mg/Ml Amp IV PUSH Q1H PRN pain/sob Phenobarbital Sodium 60 mg 12/06/21 16:00 12/07/21 03:25 Phenobarbital Sodium (*Crx) 130 Mg/Ml Vial IV PUSH 60 mg Q12H ALIZA Administration Prochlorperazine Edisylate 10 mg 12/06/21 15:56
[2021-12-08] MEDS: PHENobarbitaL sodium (*CRX) 130 MG/ML VIAL 60 MG IV PUSH ×2 (03:12→16:59)
[2021-12-08] MEDS: MORPHINE SULFATE INJ (*CRX) 50 MG in SODIUM CHLORIDE 0.9% IV 95 ML 10 MG IV CONT ×2 (03:14→14:12)
[2021-12-08 09:00] VITALS: O2SAT 93
[2021-12-08] MEDS: ARTIFICIAL TEARS OPHTH SOLN 15 ML BOTTLE 1 DROP EACH EYE ×2 (11:25→20:50)
[2021-12-08 15:17] VITALS: BP 127/71; PULSE 51; RESP 28; TEMP 36.6; O2SAT 97
--- NOTE | 2021-12-08 16:04 | PM.IMPN ---
Progress Note: A&P Assessment and Plan (1) Palliative care by specialist: Code(s): Z51.5 - Encounter for palliative care Status: Acute Assessment and Plan: Meets inpatient hospice criteria due to requirement for continuous IV morphine for control of dyspnea and scheduled IV phenobarbital and p.r.n. lorazepam IV for palliative sedation due to restlessness Continue current regimen (2) Shock: Code(s): R57.9 - Shock, unspecified Status: Acute (3) DVT (deep venous thrombosis): Code(s): I82.409 - Acute embolism and thrombosis of unspecified deep veins of unspecified lower extremity Status: Acute (4) Encephalopathy: Code(s): G93.40 - Encephalopathy, unspecified Status: Acute (5) Anemia: Code(s): D64.9 - Anemia, unspecified Status: Acute (6) Atrial fibrillation with RVR: Code(s): I48.91 - Unspecified atrial fibrillation Status: Acute (7) Acute respiratory failure: Code(s): J96.00 - Acute respiratory failure, unspecified whether with hypoxia or hypercapnia Status: Acute (8) Non-STEMI (non-ST elevated myocardial infarction): Code(s): I21.4 - Non-ST elevation (NSTEMI) myocardial infarction Status: Acute (9) CHF (congestive heart failure): Qualifiers: Heart failure chronicity: unspecified Heart failure type: unspecified Qualified Code(s): I50.9 - Heart failure, unspecified Code(s): I50.9 - Heart failure, unspecified Status: Acute Subjective Date/time seen: 12/08/21 16:04 Remains comfortable on current regimen Review of Systems Review of Systems: ROS unobtainable: Yes unobtainable due to medical condition Exam Narrative: Elderly gentleman lying supine in hospital bed with tachypnea. Eyes rolled back. Sclerae nonicteric. Pupils symmetric. Pharyngeal mucosa dry. Neck without JVD. Chest with bilateral diminished breath sounds and shallow respirations. Heart irregular tachycardic. Abdomen protuberant but soft with hypoactive bowel sounds. Extremities without edema. Bilateral AKA noted. Cranial nerves grossly symmetric to inspection. Unresponsive to verbal or tactile stimuli. Objective Data Vital Signs Vital Signs: Vital Signs - 24 hr 12/07/21 20:00 12/08/21 09:00 12/08/21 15:17 Temperature 97.8 F Pulse Rate 51 L Respiratory Rate 28 H Blood Pressure 127/71 Pulse Oximetry 93 97 Oxygen Delivery Nasal Cannula Nasal Cannula Oxygen Flow Rate 5 5 Intake/Output Intake/Output: Intake & Output 12/05/21 12/06/21 12/07/21 12/08/21 23:59 23:59 23:59 23:59 Intake Total 200 200 Output Total 550 850 300 Balance -550 -650 -100 Meds/Results Medications: Active Medications Generic Name Dose Route Start Last Admin Trade Name Freq PRN Reason Stop Dose Admin Artificial Tears 1 drop 12/06/21 21:00 12/08/21 11:25 Artificial Tears Ophth Soln 15 Ml Bottle EACH EYE 1 drop Q12H ALIZA Administration Bisacodyl 10 mg 12/06/21 15:56 Bisacodyl 10 Mg Suppository RECTAL QAM PRN Constipation Glycopyrrolate 0.1 mg 12/06/21 15:56 Glycopyrrolate Inj (*Sp) 0.2 Mg/Ml Vial IV PUSH Q4H PRN Secretions Morphine Sulfate 50 mg/ Sodium 100 mls @ 10 mls/hr 12/06/21 21:00 12/08/21 14:12 Chloride IV CONT 5 mg/hr .Q10H ALIZA 10 mls/hr Administration 5 MG/HR Lorazepam 2 mg 12/06/21 15:56 12/06/21 20:15 Lorazepam Inj (*Crx) 2 Mg/Ml Vial IV PUSH 2 mg Q2H PRN Administration Anxiety/sob Morphine Sulfate 5 mg 12/06/21 15:59 Morphine Sulfate Inj (*Crx) 10 Mg/Ml Amp IV PUSH Q1H PRN pain/sob Phenobarbital Sodium 60 mg 12/06/21 16:00 12/08/21 03:12 Phenobarbital Sodium (*Crx) 130 Mg/Ml Vial IV PUSH 60 mg Q12H ALIZA Administration Prochlorperazine Edisylate 10 mg 12/06/21 15:56 Prochlorperazine Edisylate 10 Mg/2 Ml Vial IV PUSH Q6H PRN Nausea And Vomiting
[2021-12-08 22:00] VITALS: BP 110/81; PULSE 118; RESP 16; TEMP 37.7; O2SAT 98
[2021-12-09] MEDS: MORPHINE SULFATE INJ (*CRX) 50 MG in SODIUM CHLORIDE 0.9% IV 95 ML 10 MG IV CONT ×3 (00:04→19:49)
[2021-12-09 08:00] VITALS: O2SAT 98
[2021-12-09] MEDS: ARTIFICIAL TEARS OPHTH SOLN 15 ML BOTTLE 1 DROP EACH EYE (11:54)
[2021-12-09] MEDS: PHENobarbitaL sodium (*CRX) 130 MG/ML VIAL 60 MG IV PUSH ×2 (11:55→22:49)
[2021-12-09 14:00] VITALS: BP 98/62; PULSE 96; RESP 24; TEMP 37.2; O2SAT 97
[2021-12-09] MEDS: CENTRAL LINE FLUSH 10 ML IV PUSH ×2 (15:29→22:50)
--- NOTE | 2021-12-09 16:51 | PM.IMPN ---
Progress Note: A&P Assessment and Plan (1) Palliative care by specialist: Code(s): Z51.5 - Encounter for palliative care Status: Acute Assessment and Plan: Meets inpatient hospice criteria due to requirement for continuous IV morphine for control of dyspnea and scheduled IV phenobarbital and p.r.n. lorazepam IV for palliative sedation due to restlessness Continue current regimen (2) Shock: Code(s): R57.9 - Shock, unspecified Status: Acute (3) DVT (deep venous thrombosis): Code(s): I82.409 - Acute embolism and thrombosis of unspecified deep veins of unspecified lower extremity Status: Acute (4) Encephalopathy: Code(s): G93.40 - Encephalopathy, unspecified Status: Acute (5) Anemia: Code(s): D64.9 - Anemia, unspecified Status: Acute (6) Atrial fibrillation with RVR: Code(s): I48.91 - Unspecified atrial fibrillation Status: Acute (7) Acute respiratory failure: Code(s): J96.00 - Acute respiratory failure, unspecified whether with hypoxia or hypercapnia Status: Acute (8) Non-STEMI (non-ST elevated myocardial infarction): Code(s): I21.4 - Non-ST elevation (NSTEMI) myocardial infarction Status: Acute (9) CHF (congestive heart failure): Qualifiers: Heart failure chronicity: unspecified Heart failure type: unspecified Qualified Code(s): I50.9 - Heart failure, unspecified Code(s): I50.9 - Heart failure, unspecified Status: Acute Subjective Date/time seen: 12/09/21 16:51 Continues to rest on current regimen. Review of Systems Review of Systems: ROS unobtainable: Yes unobtainable due to medical condition Exam Narrative: Elderly gentleman lying supine in hospital bed with tachypnea. Eyes rolled back. Sclerae nonicteric. Pupils symmetric. Pharyngeal mucosa dry. Neck without JVD. Chest with bilateral diminished breath sounds and shallow respirations. Heart irregular tachycardic. Abdomen protuberant but soft with hypoactive bowel sounds. Extremities without edema. Bilateral AKA noted. Cranial nerves grossly symmetric to inspection. Unresponsive to verbal or tactile stimuli. Objective Data Vital Signs Vital Signs: Vital Signs - 24 hr 12/08/21 20:00 12/08/21 22:00 12/09/21 08:00 Temperature 99.8 F H Pulse Rate 118 H Respiratory Rate 16 Blood Pressure 110/81 Pulse Oximetry 98 98 Oxygen Delivery Nasal Cannula Nasal Cannula Oxygen Flow Rate 5 5 12/09/21 14:00 Temperature 99 F Pulse Rate 96 Respiratory Rate 24 H Blood Pressure 98/62 L Pulse Oximetry 97 Oxygen Delivery Oxygen Flow Rate Intake/Output Intake/Output: Intake & Output 12/06/21 12/07/21 12/08/21 12/09/21 23:59 23:59 23:59 23:59 Intake Total 200 200 200 Output Total 550 850 650 Balance -550 -650 -450 200 Meds/Results Medications: Active Medications Generic Name Dose Route Start Last Admin Trade Name Freq PRN Reason Stop Dose Admin Artificial Tears 1 drop 12/06/21 21:00 12/09/21 11:54 Artificial Tears Ophth Soln 15 Ml Bottle EACH EYE 1 drop Q12H ALIZA Administration Bisacodyl 10 mg 12/06/21 15:56 Bisacodyl 10 Mg Suppository RECTAL QAM PRN Constipation Glycopyrrolate 0.1 mg 12/06/21 15:56 Glycopyrrolate Inj (*Sp) 0.2 Mg/Ml Vial IV PUSH Q4H PRN Secretions Morphine Sulfate 50 mg/ Sodium 100 mls @ 10 mls/hr 12/06/21 21:00 12/09/21 09:45 Chloride IV CONT 5 mg/hr .Q10H ALIZA 10 mls/hr Administration 5 MG/HR Lorazepam 2 mg 12/06/21 15:56 12/06/21 20:15 Lorazepam Inj (*Crx) 2 Mg/Ml Vial IV PUSH 2 mg Q2H PRN Administration Anxiety/sob Morphine Sulfate 5 mg 12/06/21 15:59 Morphine Sulfate Inj (*Crx) 10 Mg/Ml Amp IV PUSH Q1H PRN pain/sob Phenobarbital Sodium 60 mg 12/09/21 11:30 12/09/21 11:55 Phenobarbital Sodium (*Crx) 130 Mg/Ml Vial IV PUSH 60 mg Q12HR ALIZA Administration Proc
[2021-12-09 22:00] VITALS: BP 105/70; PULSE 77; RESP 20; TEMP 36.6; O2SAT 94
[2021-12-10] MEDS: MORPHINE SULFATE INJ (*CRX) 50 MG in SODIUM CHLORIDE 0.9% IV 95 ML 10 MG IV CONT ×2 (05:35→15:33)
[2021-12-10] MEDS: CENTRAL LINE FLUSH 10 ML IV PUSH ×2 (05:36→14:07)
[2021-12-10 08:00] VITALS: O2SAT 93
[2021-12-10] MEDS: ARTIFICIAL TEARS OPHTH SOLN 15 ML BOTTLE 1 DROP EACH EYE ×2 (08:53→20:58)
[2021-12-10] MEDS: PHENobarbitaL sodium (*CRX) 130 MG/ML VIAL 60 MG IV PUSH ×2 (08:53→21:08)
[2021-12-10 14:00] VITALS: BP 86/69; PULSE 53; RESP 20; TEMP 36.6; O2SAT 94
[2021-12-10 14:18] VITALS: O2SAT 95
[2021-12-10 22:20] VITALS: BP 96/55; PULSE 56; RESP 24; TEMP 36; O2SAT 96
[2021-12-11] MEDS: MORPHINE SULFATE INJ (*CRX) 50 MG in SODIUM CHLORIDE 0.9% IV 95 ML 10 MG IV CONT ×3 (02:11→22:27)
[2021-12-11 08:00] VITALS: BP 79/54; PULSE 93; RESP 24; TEMP 36.9; O2SAT 94
[2021-12-11] MEDS: ARTIFICIAL TEARS OPHTH SOLN 15 ML BOTTLE 1 DROP EACH EYE ×2 (08:31→22:28)
[2021-12-11] MEDS: PHENobarbitaL sodium (*CRX) 130 MG/ML VIAL 60 MG IV PUSH (08:31)
--- NOTE | 2021-12-11 10:13 | PM.IMPN ---
Progress Note: A&P Assessment and Plan (1) Palliative care by specialist: Code(s): Z51.5 - Encounter for palliative care Status: Acute Assessment and Plan: Meets inpatient hospice criteria due to requirement for continuous IV morphine for control of dyspnea and scheduled IV phenobarbital and p.r.n. lorazepam IV for palliative sedation due to restlessness Continue current regimen (2) Shock: Code(s): R57.9 - Shock, unspecified Status: Acute (3) DVT (deep venous thrombosis): Code(s): I82.409 - Acute embolism and thrombosis of unspecified deep veins of unspecified lower extremity Status: Acute (4) Encephalopathy: Code(s): G93.40 - Encephalopathy, unspecified Status: Acute (5) Anemia: Code(s): D64.9 - Anemia, unspecified Status: Acute (6) Acute respiratory failure: Code(s): J96.00 - Acute respiratory failure, unspecified whether with hypoxia or hypercapnia Status: Acute (7) Non-STEMI (non-ST elevated myocardial infarction): Code(s): I21.4 - Non-ST elevation (NSTEMI) myocardial infarction Status: Acute (8) CHF (congestive heart failure): Qualifiers: Heart failure chronicity: unspecified Heart failure type: unspecified Qualified Code(s): I50.9 - Heart failure, unspecified Code(s): I50.9 - Heart failure, unspecified Status: Acute Subjective Date/time seen: 12/11/21 10:13 Remains comfortable Review of Systems Review of Systems: ROS unobtainable: Yes unobtainable due to medical condition Exam Narrative: Elderly gentleman lying supine in hospital bed with tachypnea. Eyes rolled back. Sclerae nonicteric. Pupils symmetric. Pharyngeal mucosa dry. Neck without JVD. Chest with bilateral diminished breath sounds and shallow respirations. Heart irregular tachycardic. Abdomen protuberant but soft with hypoactive bowel sounds. Extremities without edema. Bilateral AKA noted. Cranial nerves grossly symmetric to inspection. Unresponsive to verbal or tactile stimuli. Objective Data Vital Signs Vital Signs: Vital Signs - 24 hr 12/10/21 14:18 12/10/21 14:00 12/10/21 22:20 Temperature 97.8 F 96.8 F L Pulse Rate 53 L 56 L Respiratory Rate 20 24 H Blood Pressure 86/69 L 96/55 L Pulse Oximetry 95 94 96 Oxygen Delivery Nasal Cannula Oxygen Flow Rate 5 12/11/21 08:00 Temperature 98.4 F Pulse Rate 93 Respiratory Rate 24 H Blood Pressure 79/54 L Pulse Oximetry 94 Oxygen Delivery Oxygen Flow Rate Intake/Output Intake/Output: Intake & Output 12/08/21 12/09/21 12/10/21 12/11/21 23:59 23:59 23:59 23:59 Intake Total 200 300 198.4 100 Output Total 650 700 Balance -450 300 -501.6 100 Meds/Results Medications: Active Medications Generic Name Dose Route Start Last Admin Trade Name Freq PRN Reason Stop Dose Admin Artificial Tears 1 drop 12/06/21 21:00 12/11/21 08:31 Artificial Tears Ophth Soln 15 Ml Bottle EACH EYE 1 drop Q12H ALIZA Administration Bisacodyl 10 mg 12/06/21 15:56 Bisacodyl 10 Mg Suppository RECTAL QAM PRN Constipation Glycopyrrolate 0.1 mg 12/06/21 15:56 Glycopyrrolate Inj (*Sp) 0.2 Mg/Ml Vial IV PUSH Q4H PRN Secretions Morphine Sulfate 50 mg/ Sodium 100 mls @ 10 mls/hr 12/06/21 21:00 12/11/21 02:11 Chloride IV CONT 5 mg/hr .Q10H ALIZA 10 mls/hr Administration 5 MG/HR Lorazepam 2 mg 12/06/21 15:56 12/06/21 20:15 Lorazepam Inj (*Crx) 2 Mg/Ml Vial IV PUSH 2 mg Q2H PRN Administration Anxiety/sob Morphine Sulfate 5 mg 12/06/21 15:59 Morphine Sulfate Inj (*Crx) 10 Mg/Ml Amp IV PUSH Q1H PRN pain/sob Phenobarbital Sodium 60 mg 12/09/21 11:30 12/11/21 08:31 Phenobarbital Sodium (*Crx) 130 Mg/Ml Vial IV PUSH 60 mg Q12HR ALIZA Administration Prochlorperazine Edisylate 10 mg 12/06/21 15:56 Prochlorperazine Edisylate 10 Mg/2 Ml Vial IV PUSH Q6H PRN
[2021-12-11 14:30] VITALS: O2SAT 94
[2021-12-11] MEDS: CENTRAL LINE FLUSH 10 ML IV PUSH (15:57)
[2021-12-11 20:50] VITALS: BP 85/52; PULSE 91; RESP 20; TEMP 36; O2SAT 95
[2021-12-12 08:00] VITALS: BP 84/51; PULSE 75; RESP 22; TEMP 36.8; O2SAT 90; O2SAT 99
[2021-12-12] MEDS: ARTIFICIAL TEARS OPHTH SOLN 15 ML BOTTLE 1 DROP EACH EYE ×2 (08:27→23:36)
[2021-12-12] MEDS: MORPHINE SULFATE INJ (*CRX) 50 MG in SODIUM CHLORIDE 0.9% IV 95 ML 10 MG IV CONT ×2 (08:50→19:34)
[2021-12-12] MEDS: PHENobarbitaL sodium (*CRX) 130 MG/ML VIAL 60 MG IV PUSH ×2 (11:48→23:36)
--- NOTE | 2021-12-12 12:14 | PM.IMPN ---
Progress Note: A&P Assessment and Plan (1) Palliative care by specialist: Code(s): Z51.5 - Encounter for palliative care Status: Acute Assessment and Plan: Meets inpatient hospice criteria due to requirement for continuous IV morphine for control of dyspnea and scheduled IV phenobarbital and p.r.n. lorazepam IV for palliative sedation due to restlessness Continue current regimen (2) Shock: Code(s): R57.9 - Shock, unspecified Status: Acute (3) DVT (deep venous thrombosis): Code(s): I82.409 - Acute embolism and thrombosis of unspecified deep veins of unspecified lower extremity Status: Acute (4) Encephalopathy: Code(s): G93.40 - Encephalopathy, unspecified Status: Acute (5) Anemia: Code(s): D64.9 - Anemia, unspecified Status: Acute (6) Acute respiratory failure: Code(s): J96.00 - Acute respiratory failure, unspecified whether with hypoxia or hypercapnia Status: Acute (7) Non-STEMI (non-ST elevated myocardial infarction): Code(s): I21.4 - Non-ST elevation (NSTEMI) myocardial infarction Status: Acute (8) CHF (congestive heart failure): Qualifiers: Heart failure chronicity: unspecified Heart failure type: unspecified Qualified Code(s): I50.9 - Heart failure, unspecified Code(s): I50.9 - Heart failure, unspecified Status: Acute Subjective Date/time seen: 12/12/21 12:14 Remains comfortable. Review of Systems Review of Systems: ROS unobtainable: Yes unobtainable due to medical condition Exam Narrative: Elderly gentleman lying supine in hospital bed with tachypnea. Eyes rolled back. Sclerae nonicteric. Pupils symmetric. Pharyngeal mucosa dry. Neck without JVD. Chest with bilateral diminished breath sounds and shallow respirations. Heart irregular tachycardic. Abdomen protuberant but soft with hypoactive bowel sounds. Extremities without edema. Bilateral AKA noted. Cranial nerves grossly symmetric to inspection. Unresponsive to verbal or tactile stimuli. Objective Data Vital Signs Vital Signs: Vital Signs - 24 hr 12/11/21 14:30 12/11/21 20:50 12/12/21 08:00 Temperature 96.8 F L 98.2 F Pulse Rate 91 75 Respiratory Rate 20 22 H Blood Pressure 85/52 L 84/51 L Pulse Oximetry 94 95 99 Oxygen Delivery Nasal Cannula Oxygen Flow Rate 5 12/12/21 08:00 Temperature Pulse Rate Respiratory Rate Blood Pressure Pulse Oximetry 90 Oxygen Delivery Nasal Cannula Oxygen Flow Rate 5 Intake/Output Intake/Output: Intake & Output 12/09/21 12/10/21 12/11/21 12/12/21 23:59 23:59 23:59 23:59 Intake Total 300 198.4 300 100 Output Total 700 Balance 300 -501.6 300 100 Meds/Results Medications: Active Medications Generic Name Dose Route Start Last Admin Trade Name Freq PRN Reason Stop Dose Admin Artificial Tears 1 drop 12/06/21 21:00 12/12/21 08:27 Artificial Tears Ophth Soln 15 Ml Bottle EACH EYE 1 drop Q12H ALIZA Administration Bisacodyl 10 mg 12/06/21 15:56 Bisacodyl 10 Mg Suppository RECTAL QAM PRN Constipation Glycopyrrolate 0.1 mg 12/06/21 15:56 Glycopyrrolate Inj (*Sp) 0.2 Mg/Ml Vial IV PUSH Q4H PRN Secretions Morphine Sulfate 50 mg/ Sodium 100 mls @ 10 mls/hr 12/06/21 21:00 12/12/21 08:50 Chloride IV CONT 5 mg/hr .Q10H ALIZA 10 mls/hr Administration 5 MG/HR Lorazepam 2 mg 12/06/21 15:56 12/06/21 20:15 Lorazepam Inj (*Crx) 2 Mg/Ml Vial IV PUSH 2 mg Q2H PRN Administration Anxiety/sob Morphine Sulfate 5 mg 12/06/21 15:59 Morphine Sulfate Inj (*Crx) 10 Mg/Ml Amp IV PUSH Q1H PRN pain/sob Phenobarbital Sodium 60 mg 12/09/21 11:30 12/12/21 11:48 Phenobarbital Sodium (*Crx) 130 Mg/Ml Vial IV PUSH 60 mg Q12HR ALIZA Administration Prochlorperazine Edisylate 10 mg 12/06/21 15:56 Prochlorperazine Edisylate 10 Mg/2 Ml Vial IV PUSH Q6H PRN Nausea And
[2021-12-12] MEDS: CENTRAL LINE FLUSH 10 ML IV PUSH ×2 (13:56→23:37)
[2021-12-12 20:00] VITALS: BP 95/57; PULSE 89; RESP 20; TEMP 36.5; O2SAT 97
[2021-12-13] MEDS: MORPHINE SULFATE INJ (*CRX) 50 MG in SODIUM CHLORIDE 0.9% IV 95 ML 10 MG IV CONT ×2 (04:49→14:10)
[2021-12-13 08:00] VITALS: BP 72/42; PULSE 86; RESP 20; TEMP 35.8; O2SAT 94; O2SAT 98
[2021-12-13 08:05] VITALS: BP 65/46
[2021-12-13 08:45] VITALS: O2SAT 96
[2021-12-13] MEDS: ARTIFICIAL TEARS OPHTH SOLN 15 ML BOTTLE 1 DROP EACH EYE ×2 (09:38→21:42)
[2021-12-13] MEDS: CENTRAL LINE FLUSH 10 ML IV PUSH ×3 (09:38→21:42)
[2021-12-13] MEDS: PHENobarbitaL sodium (*CRX) 130 MG/ML VIAL 60 MG IV PUSH ×2 (10:55→21:41)
--- NOTE | 2021-12-13 17:33 | PM.IMPN ---
Progress Note: A&P Assessment and Plan (1) Palliative care by specialist: Code(s): Z51.5 - Encounter for palliative care Status: Acute Assessment and Plan: Meets inpatient hospice criteria due to requirement for continuous IV morphine for control of dyspnea and scheduled IV phenobarbital and p.r.n. lorazepam IV for palliative sedation due to restlessness Continue current regimen (2) Shock: Code(s): R57.9 - Shock, unspecified Status: Acute (3) DVT (deep venous thrombosis): Code(s): I82.409 - Acute embolism and thrombosis of unspecified deep veins of unspecified lower extremity Status: Acute (4) Encephalopathy: Code(s): G93.40 - Encephalopathy, unspecified Status: Acute (5) Anemia: Code(s): D64.9 - Anemia, unspecified Status: Acute (6) Acute respiratory failure: Code(s): J96.00 - Acute respiratory failure, unspecified whether with hypoxia or hypercapnia Status: Acute (7) Non-STEMI (non-ST elevated myocardial infarction): Code(s): I21.4 - Non-ST elevation (NSTEMI) myocardial infarction Status: Acute (8) CHF (congestive heart failure): Qualifiers: Heart failure chronicity: unspecified Heart failure type: unspecified Qualified Code(s): I50.9 - Heart failure, unspecified Code(s): I50.9 - Heart failure, unspecified Status: Acute Subjective Date/time seen: 12/13/21 17:33 Sleeping. Review of Systems Review of Systems: ROS unobtainable: Yes unobtainable due to medical condition Exam Narrative: Elderly gentleman lying supine in hospital bed with tachypnea. Eyes rolled back. Sclerae nonicteric. Pupils symmetric. Pharyngeal mucosa dry. Neck without JVD. Chest with bilateral diminished breath sounds and shallow respirations. Heart irregular tachycardic. Abdomen protuberant but soft with hypoactive bowel sounds. Extremities without edema. Bilateral AKA noted. Cranial nerves grossly symmetric to inspection. Unresponsive to verbal or tactile stimuli. Objective Data Vital Signs Vital Signs: Vital Signs - 24 hr 12/12/21 20:00 12/13/21 08:45 12/13/21 08:00 Temperature 97.7 F 96.5 F L Pulse Rate 89 86 Respiratory Rate 20 20 Blood Pressure 95/57 L 72/42 L Pulse Oximetry 97 96 98 Oxygen Delivery Nasal Cannula Oxygen Flow Rate 5 12/13/21 08:05 12/13/21 08:00 Temperature Pulse Rate Respiratory Rate Blood Pressure 65/46 L Pulse Oximetry 94 Oxygen Delivery Nasal Cannula Oxygen Flow Rate 5 Intake/Output Intake/Output: Intake & Output 12/10/21 12/11/21 12/12/21 12/13/21 23:59 23:59 23:59 23:59 Intake Total 198.4 300 200 200 Output Total 700 Balance -501.6 300 200 200 Meds/Results Medications: Active Medications Generic Name Dose Route Start Last Admin Trade Name Freq PRN Reason Stop Dose Admin Artificial Tears 1 drop 12/06/21 21:00 12/13/21 09:38 Artificial Tears Ophth Soln 15 Ml Bottle EACH EYE 1 drop Q12H ALIZA Administration Bisacodyl 10 mg 12/06/21 15:56 Bisacodyl 10 Mg Suppository RECTAL QAM PRN Constipation Glycopyrrolate 0.1 mg 12/06/21 15:56 Glycopyrrolate Inj (*Sp) 0.2 Mg/Ml Vial IV PUSH Q4H PRN Secretions Morphine Sulfate 50 mg/ Sodium 100 mls @ 10 mls/hr 12/06/21 21:00 12/13/21 14:10 Chloride IV CONT 5 mg/hr .Q10H ALIZA 10 mls/hr Administration 5 MG/HR Lorazepam 2 mg 12/06/21 15:56 12/06/21 20:15 Lorazepam Inj (*Crx) 2 Mg/Ml Vial IV PUSH 2 mg Q2H PRN Administration Anxiety/sob Morphine Sulfate 5 mg 12/06/21 15:59 Morphine Sulfate Inj (*Crx) 10 Mg/Ml Amp IV PUSH Q1H PRN pain/sob Phenobarbital Sodium 60 mg 12/09/21 11:30 12/13/21 10:55 Phenobarbital Sodium (*Crx) 130 Mg/Ml Vial IV PUSH 60 mg Q12HR ALIZA Administration Prochlorperazine Edisylate 10 mg 12/06/21 15:56 Prochlorperazine Edisylate 10 Mg/2 Ml Vial IV PUSH Q6H PRN
[2021-12-13 22:17] VITALS: BP 93/47; PULSE 85; RESP 12; TEMP 36.9; O2SAT 96
[2021-12-13] MEDS: LORazepam INJ (*CRX) 2 MG/ML VIAL IV PUSH (22:18)
--- NOTE | 2021-12-14 00:10 | PC.NURSE ---
Patient transferred to [facility] at 0010 on 12/14/21. Belongings sent with patient.
--- NOTE | 2021-12-14 16:33 | PM.DDS ---
Discharge Summary Date and Time Date of : 12/13/21 Time of : 22:55 Provider Pronounced By: Callie Joel RN Probable Cause of Probable Cause of : ACUTE RESPIRATORY FAILURE DUE TO CHF WITH NSTEMI AND CARDIOGENIC SHOCK Summary Hospital Course: ADMITTED TO INPATIENT HOSPICE SERVICE FOR CONTROL OF DISCOMFORT AND DYSPNEA MEDICATIONS TITRATED TO COMFORT PATIENT PEACEFULLY Additional Data Confirmation of as documented by pronouncing clinician: Pupillary Reflex, Palpable Pulses, Response to Stimuli, Heart Tones and Breath Sounds Name of Provider Notified: Fredi Time Provider Notified: 23:05 Provider Requests Autopsy: No Family Requests Autopsy: No [employer] Notified: Yes Date [facility] Notified of : 12/13/21 Time [facility] Notified of : 23:13
== END 2021-12-13 22:55 | disposition expired | DRG 951 ==
PROVIDERS: Admitting Provider Internal Medicine; Visit Provider Internal Medicine
DX: Z51.5 Encounter for palliative care (principal); I21.4 Non-ST elevation (NSTEMI) myocardial infarction; J96.00 Acute respiratory failure, unspecified whether with hypoxia or hypercapnia; J18.9 Pneumonia, unspecified organism; G93.40 Encephalopathy, unspecified; I82.409 Acute embolism and thrombosis of unspecified deep veins of unspecified lower extremity; R57.0 Cardiogenic shock; D64.9 Anemia, unspecified; I48.91 Unspecified atrial fibrillation; I50.9 Heart failure, unspecified; F17.210 Nicotine dependence, cigarettes, uncomplicated; Z89.612 Acquired absence of left leg above knee; Z89.611 Acquired absence of right leg above knee
CPT/HCPCS: A9270; J2060; J2270; J2560